=== PATIENT | male | born 1935 | race Caucasian/White ===

== ENCOUNTER 2017-04-15 05:36 | Inpatient (IN) | payer OTHER ==
[~2017-04-15] VITALS: Ht 167.6 cm; Wt 153.5 kg
[2017-04-15] VITALS (9 sets, daily range): BP systolic 101–184; BP diastolic 46–68; PULSE 52–78; RESP 12–16; TEMP 97.7–98.2; O2SAT 92–97
[~2017-04-15 05:36] MED LIST: AMLO5TAB22 PO; ATOR80TA PO; CARD8TAB6 PO; CARV6.252 PO; CHOL1CAP6 PO; CLIN1CAP6 PO; DOFE250 PO; FISHCAP PO; FURO10S PO; IMDU30TA PO; IRON28TA PO; LISI-363 PO; MULT-65 PO; PERC5TAB12 PO; POTA99TA12 PO; RIVA20 PO; ST JTAB PO
[2017-04-15] MEDS ORDERED: IOHEXOL 350 MG/ML 50 ML BTL (for Cath Lab) OTHER ONE (05:37)
[2017-04-15] MEDS ORDERED: NS 1000P @30 MLS/HR (KVO) IV SCH ×2 (06:00→06:15)
[2017-04-15] MEDS ORDERED: ASPIRIN 325 MG TAB PO SCH (06:15)
[2017-04-15 06:49] LABS: HEMATOCRIT 31.3 % (39.0-51.0); HEMOGLOBIN 10.5 GM/DL (13.0-17.0); RED BLOOD COUNT 3.27 MIL/MM3 (4.50-5.90); WHITE BLOOD COUNT 6.4 TH/MM3 (4.0-11.0)
[2017-04-15 06:50] LABS: AUTOMATED NEUTROPHIL # 3.5 TH/MM3 (1.8-7.7); BASOPHIL # 0.1 TH/MM3 (0-0.2); BASOPHIL % 0.8 % (0.0-2.0); EOSINOPHIL # 0.4 TH/MM3 (0-0.4); EOSINOPHIL % 5.7 % (0.0-4.0); LYMPH % 27.3 % (9.0-44.0); LYMPHOCYTE # 1.8 TH/MM3 (1.0-4.8); MEAN CORPUSCULAR HEMOGLOBIN 32.3 PG (27.0-34.0); MEAN CORPUSCULAR HGB CONC 33.7 % (32.0-36.0); MONOCYTE # 0.7 TH/MM3 (0-0.9); NEUT % 55.2 % (16.0-70.0); PLATELET COUNT 160 TH/MM3 (150-450); RED CELL DISTRIBUTION WIDTH 13.4 % (11.6-17.2)
[2017-04-15] MEDS ORDERED: KLOR25TA2 PO (06:58)
[2017-04-15] MEDS ORDERED: CARV3.12 PO (06:58)
[2017-04-15] MEDS ORDERED: DOXA1TAB43 PO (06:58)
[2017-04-15] MEDS ORDERED: ATOR80TA45 PO (06:58)
[2017-04-15] MEDS ORDERED: ASPI81TA23 PO (06:58)
[2017-04-15] MEDS ORDERED: LISI40TA PO (06:58)
[2017-04-15] MEDS ORDERED: OMEGCAP PO (06:58)
[2017-04-15] MEDS ORDERED: ISOS10TA3 PO (06:58)
[2017-04-15] MEDS ORDERED: VITA2000 PO (06:58)
[2017-04-15] MEDS ORDERED: DOFE250 PO (06:58)
[2017-04-15] MEDS ORDERED: MULT-65 PO (06:58)
[2017-04-15] MEDS ORDERED: IRON1CAP4 PO (06:58)
[2017-04-15] MEDS ORDERED: FLUO.05%ST TOPICAL (06:58)
[2017-04-15] MEDS ORDERED: TYLE325T PO (06:58)
[2017-04-15] MEDS ORDERED: FURO40TA PO (06:58)
[2017-04-15] MEDS ORDERED: AMLO2.5T PO (06:58)
[2017-04-15] MEDS ORDERED: XARE20TA PO (06:58)
[2017-04-15] MEDS ORDERED: MAGN100T2 PO (06:58)
[2017-04-15] MEDS ORDERED: SPIR25TA PO (06:58)
[2017-04-15] MEDS ORDERED: VITA500T83 PO (06:58)
[2017-04-15 07:02] LABS: INTERNATIONAL NORMALIZED RATIO 1.1 RATIO; PROTHROMBIN TIME - PATIENT 10.7 SEC (9.8-11.6)
[2017-04-15 07:07] LABS: BICARBONATE 24.6 MEQ/L (21.0-32.0); CREATININE 1.46 MG/DL (0.60-1.30)
[2017-04-15] MEDS ORDERED: MIDAZOLAM HCL 2 MG/2 ML VIAL ONE ×4 (07:32→18:24)
[2017-04-15] MEDS ORDERED: HEPARIN-NS/PF FLUSH BAG 2,000 ML IV FLUSH ONE (07:32)
[2017-04-15] MEDS ORDERED: VERAPAMIL HCL 5 MG/2 ML VIAL ONE (07:32)
[2017-04-15] MEDS ORDERED: NITROGLYCERIN INJ 5 ML ONE (07:33)
[2017-04-15] MEDS ORDERED: HEPARIN SODIUM - IV 10,000 UNITS/10 ML VIAL ONE ×2 (07:33→11:24)
[2017-04-15] MEDS ORDERED: SODIUM CHLOR 0.9% 1000 ML INJ 1,000 ML IV SCH (08:22)
--- NOTE | 2017-04-15 08:26 | CATHPROC ---
[facility] HIS Report Study Information Study Number Admission Scheduled Start Study Start [id number] Apr 15 2017 5:36AM 04/15/2017 Apr 15 2017 6:54AM [facility] Cardiac Catheterization Admit Source Facility Department Other [facility] - [employer] Combination Teacher Physician and Clinical Staff Initial Paul Martínez Voice Engineer Christina Ambrose,CARLOS ALBERTO Recorder Vilma Kent,RT(R) Scrub Katie Marinelli,RT(R) Procedures Performed Procedure Location (Site) Vessel Name Angiogram LV LV Ventricle Coronary Angiograms LCA Left Coronary Coronary Angiograms RCA Right Coronary L Heart Cath Equipment Time 3Rd Grade Reading Teacher Description Size Mfg Part Number Used/Scraped TRANSDUCER, TRUWAVE [id number] 07:51 VILLALOBOS LANCASTER * Used W/STOCKCOCK *[id number] [id number] *[id number] [id number] *[id number] [id number] *[id number] 07:51 MALLINCKRODT SYRINGE, ANGIOMAT 150ML 150ML *[id number] Used 2SUB [id number] 07:51 A.P Avanashiappa Silk PACK, CCL CUSTOM * Used *[id number] 07:51 A.P Avanashiappa Silk SUPPORT, ARTERIAL ADULT 55010 *[id number] Used [id number] 07:51 WordSentry PACER PEN, SKIN DUAL W/ RULER * Used *[id number] BAND, RADIAL COMPRESSION TR [id number] 08:11 MEPS Real-Time MEDICAL 29CM Used LARGE 29 *[id number] 07:51 ReInnervate WIRE, EXCHANGE 260CM 3MMJ 260CM Used *[id number] 07:51 NAMIC MANIFOLD, 4 PORT * Used *[id number] 07:51 NYCOMED OMNIPAQUE, 350 MG, 100ML 100ML [id number] Used 08:09 NYCOMED OMNIPAQUE, 350 MG, 50ML 50ML [id number] Used [id number] 07:51 Coupz BLANKET,WARM AIR CCL * Used *[id number] 07:51 Coupz JELCO NEEDLE 4056 *[id number] Used SHEATH, FR6 TRANSRADIAL [id number] 07:51 TERSpiced Bits MEDICAL FR 6 Used SLENDER 10CM *[id number] Equipment Model, Serial, Lot Number and Expiration Data Description Model Number Serial Number Lot Number Expiration Date BAND, RADIAL COMPRESSION TR [id number] 12-11-2019 LARGE 29 History: Current Medications Medication Dosage/Unit Route Frequency Last Date/Time Taken Statins (any) Beta Bam ASA XARELTO History: Allergies Allergy Reaction crab DIARRHEA AND RASH History: Risk Factors Family History of Hypertension Dyslipidemia Previous SC Previous Heart Failure Premature CAD Yes Yes No Yes No Prior Valve Prior PCI Prior CABG Surgery No Yes No Cerebrovascular Peripheral Artery Chronic Lung On Dialysis Diabetes Disease Disease Disease No No No No No History: Symptoms/Diagnosis Selection Items Chest pain History: Stress Tests Stress or Imaging Studies Performed Yes Standard Exercise Stress Test No Stress Echo No Stress Test SPECT Stress Test SPECT Result Stress Test SPECT Ischemia Risk/Extent Yes Positive High Stress Test CMR No Cardiac CTA Coronary Calcium Score No No History: Other Current Smoker Packs a Day Years Used Pack Years No 1 20 20 Labs Hgb (g/dl) Hct (%) WBC (l/cumm) Platelets (thousands) 11.60-17.00 35.00-51.00 4.00-11.00 150.00-450.00 10.5 31.3 6.4 160 Glucose (mg/dl) BUN (mg/dl) Creatinine (mg/dl) BUN:Creatinine (1:x) 74.00-106.00 7.00-18.00 0.50-1.30 10.00-20.00 111 50 1.4 35.7 Na (meq/l) K (meq/l) 136.00-145.00 3.50-5.10 141 5.3 INR (PTT:PT) 0.90-1.10 1.1 Medication Medication Total Dose (Bolus/Oral) Medication Total Dosage/Unit 1% XYLOCAINE 1 mL FENTANYL 50 mcg RADIAL COCKTAIL 1 units VERSED 3 mg Medications (Bolus/Oral) Medication Time Given Dosage/Unit Administered By Reason VERSED 04/15/2017 7:46:11 AM 1 mg Christina Ambrose 1 mg VERSED given in lab by Christina Ambrose, RN in Left Antecubital via Peripheral IV. VERSED 04/15/2017 7:48:25 AM 1 mg Christina Ambrose 1 mg VERSED given in lab by Christina Ambrose, RN in Left Antecubital via Peripheral IV. 1% XYLOCAINE 04/15/2017 7:49:06 AM 1 mL Paul Yoder 1 mL 1% XYLOCAINE given in lab by Paul Yoder in Right Radial via Subcutaneous. VERSED 04/15/2017 7:50:43 AM 1 mg Christina Ambrose 1 mg VERSED given in lab by Christina Ambrose, RN in Left Antecubital via Peripheral IV. Ntg 200mcg Verapamil 2.5mg Heparin RADIAL COCKTAIL 04/15/2017 7:51:57 AM 1 units Paul Yoder 2000U 1 units RADIAL COCKTAIL given in lab by Paul Yoder in Right Radial via Radial. Reason: Ntg 200mcg Verapamil 2.5mg Heparin 2500U. FENTANYL 04/15/2017 8:03:40 AM 50 mcg Christina Ambrose 50 mcg FENTANYL given in lab by Christina Ambrose, RN in Left Antecubital via Peripheral IV. Ordered by Paul Yoder. Medication (Drip) Medication Time Given Dosage/Unit Concentration/Unit Diluent (ml) Solution IV Solutions 04/15/2017 7:28:21 AM 0 mL (IV) 500 NaCl .9 IV Solutions given in lab by Christina Ambrose, CARLOS ALBERTO in Left Antecubital via Peripheral IV. Pump/Drip Kunal w = 30 ml/hr using NaCl .9. Initial Case Assessment Cardiovascular HR Rhythm NIBP Chest Pain 54 reg 184/72 0 Edema Present Skin color Skin None Normal Warm Dry Circulatory - Right Pulses Dorsalis Pedis Femoral Radial 1 1 1 Scale (0,1,2,3,4,d) Scale (0,1,2,3,4,d) Neurological State Oriented to time-place- Alert Moves all extremities person Respiration - General Respiration Rate SpO2 (%) (B/min) 17 100 Chronological Log Time Study Chronological Log 7:23:54 Patient arrived via Bed. 7:28:00 Patient Name, D.O.B, / Armband Verified By R.N. 7:28:00 Consent signed by the physician and the patient and verified by the [employer] Combination [employer] staff. 7:28:01 Verbal Stimulation=2 Physical Stimulation=2 Airway=2 Respiration=2 TOTAL=8. (0=absent, 1=li mited, 2=present) 7:28:01 Pre-op and post- op instructions given; patient acknowledges understanding of instructions. 7:28:06 Presedation assessment performed by [employer] Combination [employer] RN. 7:28:07 Allens test performed on the right radial and ulnar artery. 7:28:08 Patient has been NPO for More than 6Hrs. 7:28:09 Skin Breakdown none per pt 7:28:09 Patient Warmer Placed on the Table. 7:28:11 Linda Prominences Protected 7:28:16 A # 20 IV was noted in the Antecubital (left). Grade = 0 IV Solutions given in lab by Christina Ambrose, RN in Left Antecubital via Peripheral IV. Pump/Dr ip Flow = 30 ml/hr using 7:28:21 NaCl .9. 7:28:22 History and physical on the chart or being dictated. Assessment: Initial Case, HR=54 BPM, Rhythm=reg, EJPX=322/72 mmhg, Chest Pain=0, Edema=None, Co mary=Normal, Skin = Warm, Dry 7:28:23 Right Pulses: Jacky Ped=1, Femoral=1, Radial=1 Neurological: State=Alert, Ox3, TURCIOS Respiration: Resp=17 B/min, SdL0=593 % Vitals capture started with the following parameters, Patient=Adult, Interval=5 min, Initial Pr dzekrz=968 mmHg, 7:32:34 Deflation Rate=5 mmHg, Cuff placed on Left Arm 7:34:06 HR=54 bpm, PMES=264/72 mmhg, PqM9=069.0 %, Resp=16 B/min, Pain=0, Rylee=10, Banerjee=2 7:35:13 Reference ECG taken 7:38:11 Right Radial and right groin prepped with 2% chlorhexidine, and draped after a 3 min. waitin g time. 7:38:13 HR=62 bpm, QQTZ=561/76 mmhg, OeZ7=424.0 %, Resp=23 B/min, Pain=0, Rylee=10, Banerjee=2 7:41:35 Pressure channel 1 zeroed. 7:43:57 HR=54 bpm, MUPE=603/78 mmhg, UjF5=674.0 %, Resp=12 B/min, Pain=0, Rylee=10, Banerjee=2 7:46:11 1 mg VERSED given in lab by Christina Ambrose, RN in Left Antecubital via Peripheral IV. Time Out. Correct patient, correct procedure, correct physician, power injector not loaded with contrast with surgical 7:47:01 team present. Time Out Concurred by MD and individual staff in procedure. 7:47:10 Case Start 7:48:18 HR=55 bpm, VFOF=518/82 mmhg, BwV3=171.0 %, Resp=20 B/min, Pain=0, Rylee=10, Banerjee=2 7:48:25 1 mg VERSED given in lab by Christina Ambrose, CARLOS ALBERTO in Left Antecubital via Peripheral IV. 7:49:06 1 mL 1% XYLOCAINE given in lab by aPul Yoder in Right Radial via Subcutaneous. 7:50:30 Access site was right Radial Artery. 7:50:43 1 mg VERSED given in lab by Christina Ambrose, CARLOS ALBERTO in Left Antecubital via Peripheral IV. A SHEATH, FR6 TRANSRADIAL SLENDER 10CM FR 6 was advanced into the Radial (right) using the Esha jama 7:50:45 technique. 1 units RADIAL COCKTAIL given in lab by Paul Yoder in Right Radial via Radial. Reason: Ntg 20 0mcg Verapamil 7:51:57 2.5mg Heparin 2500U. A JL 3.5 INFINITI CATHETER FR 5 was advanced over a wire. OMNIPAQUE, 350 MG, 100ML 100ML was use d for 7:52:42 injections. 7:53:25 HR=60 bpm, SXOV=937/58 mmhg, DhU6=511.0 %, Resp=23 B/min, Pain=0, Rylee=10, Banerjee=2 Recorded Pressure: Ao, HR=66, Condition=Condition 1 7:55:26 (Aorta) Ao 101/49/69 7:58:10 The LCA was injected and visualized at various angles. OMNIPAQUE, 350 MG, 100ML 100ML used. 7:58:16 HR=63 bpm, PEWB=084/58 mmhg, SfN0=087.0 %, Resp=25 B/min After removing the current catheter a JR 5.0 INFINITI CATHETER FR 5 was advanced over a WIRE, EX CHANGE 260CM 7:59:53 3MMJ 260CM. 8:02:47 The RCA was injected and visualized at various angles. OMNIPAQUE, 350 MG, 100ML 100ML used. 8:03:40 50 mcg FENTANYL given in lab by Christina Ambrose, CARLOS ALBERTO in Left Antecubital via Peripheral IV. O rdered by Paul Yoder. 8:04:00 HR=59 bpm, KNSE=547/58 mmhg, SpO2=98.0 %, Resp=26 B/min After removing the current catheter a PIGTAIL ANG. INFINITI CATHETER FR 5 was advanced over a WI RE, EXCHANGE 8:06:54 260CM 3MMJ 260CM. 8:09:11 HR=52 bpm, QZVB=107/63 mmhg, SpO2=97.0 %, Resp=18 B/min 8:09:21 The LV was injected at 8 cc/sec for a total of 24. OMNIPAQUE, 350 MG, 50ML 50ML used. Recorded Pressure: LV, HR=54, Condition=Condition 1 8:09:35 (Left Ventricle) LV 154/20/28 Recorded Pressure: LV, Ao, HR=54, Condition=Condition 1 8:09:57 (Left Ventricle) LV 159/14/25, (Aorta) Ao 152/48/88 8:10:27 Catheter was removed 8:11:00 Case End 8:13:23 HR=56 bpm, IVID=629/68 mmhg, SpO2=98.0 %, Resp=17 B/min 8:15:03 Vitals capture stopped. Radial Compression Device Used. 13 mLs of air placed in BAND, RADIAL COMPRESSION TR LARGE 29 29C M. Affected 8:15:43 hand 96 % O2 saturation. 8:16:09 No case complications noted. 8:16:11 Cine recording checked. 8:16:12 Bedside Report will be given. 8:16:17 Holding Area notified. 8:16:26 A Left Heart Cath was performed. 8:20:26 Patient moved to [facility] End Study - Contrast Media Used In Study Contrast Total Opened (mL) Total Used (mL) Total Wasted (mL) Omnipaque 40 40 0 End Study - Maximum Contrast Load Max Contrast Load (mL) 564.3 End Study - Radiation Exposure Fluoro Time (minutes) 5.8 End Study - Patient Disposition Complications Transferred To Interventional Outcome No Critical Care Bed No attempt made
[2017-04-15] MEDS ORDERED: SODIUM CHLORIDE 0.9% FLUSH 10 ML FLUSH IV FLUSH PRN ×3 (08:30→17:00)
[2017-04-15] MEDS ORDERED: ONDANSETRON HCL 4 MG/2 ML VIAL IVP PRN (08:30)
[2017-04-15] MEDS ORDERED: MISC INFORMATION XX ONE (08:30)
[2017-04-15] MEDS ORDERED: CEFAZOLIN INJ 500 MG in SODIUM CHLORIDE 0.9% IRR BTL 500 ML IRRIGATION SCH (09:00)
[2017-04-15] MEDS ORDERED: DEXTROSE 50% IN WATER 50 ML VIAL(D50) IV PUSH PRN ×2 (09:00→17:00)
[2017-04-15] MEDS ORDERED: METOPROLOL TARTRATE 25 MG TAB PO SCH (09:00)
[2017-04-15] MEDS ORDERED: PAPAVERINE INJ 60 MG, NITROGLYCERIN INJ 100 MCG, DILTIAZEM INJ 100 MG in SODIUM CHLORID... IRRIGATION SCH (09:00)
[2017-04-15] MEDS ORDERED: ceFAZolin 2 GM PREMIX 50 ML IV SCH (09:00)
[2017-04-15] MEDS ORDERED: INSULIN REGULAR (IV INFUSION) 100 UNITS in SODIUM CHLORIDE 0.9% INJ 99 ML IV PRN (09:00)
[2017-04-15] MEDS ORDERED: SODIUM CHLORIDE 0.9% FLUSH 10 ML FLUSH IV FLUSH SCH ×2 (09:00)
[2017-04-15] MEDS ORDERED: CHLORHEXIDINE GLUCONATE 4% SOLN 120 ML BTL TOPICAL SCH (09:00)
[2017-04-15] MEDS ORDERED: BACITRACIN OINT 0.9 GM PKT TOP ONE (09:00)
--- NOTE | 2017-04-15 09:09 | MA ---
cc: Paul Yoder MD, Prady M MD 04/15/2017 PROCEDURE PERFORMED: Left heart catheterization, left ventriculography, coronary angiography, right renal arterial approach. DESCRIPTION OF PROCEDURE: The patient was brought to the cardiac tailings dam laborer in a fasting state. The right wrist was prepped and draped in sterile fashion. He received a total of 3 mg of Versed for IV sedation, using 1% lidocaine for local anesthesia. A sheath was inserted in the right renal artery requiring only a single stick with no difficulty. Standard cocktail was administered. Coronary angiography was then completed using a left 3.5 Kwesi for the left coronary artery and a JR 5 for the right coronary artery. An pigtail catheter was then used for left heart catheterization, left ventriculography and a pullback. The sheath was removed at the end of the case with a band placed. There were no complications. The patient did not have any chest pain during the procedure. FINDINGS: 1. Hemodynamics. Left ventricular pressure is 159/14 with an end diastolic pressure of 25. Aortic pressure is 15/48 with a mean of 88. There was no gradient during pullback from the left ventricle to the aorta. 2. Left ventriculography. Left ventriculography shows a symmetrically aga left ventricle with an estimated ejection fraction of 60% and no mitral regurgitation. 3. Coronary angiography. The left main coronary artery has a tight distal stenosis with Inman classification of 111. The left main distal stenosis is 90%. The ostial LAD is about 80% and the ostial circumflex is about 80%. The LAD has diffuse disease with probably at least 70% stenosis past the branch, but distally appears graftable. Circumflex artery has an obtuse marginal branch that comes out of the groove that looks graftable. It looks as if there are old stents in the proximal circumflex and proximal LAD, which are patent. The right coronary artery has a large hyperdominant vessel with no significant stenosis. There may be about 20% stenosis in the posterolateral branch. CONCLUSIONS: 1. Elevated left ventricular end diastolic pressure. 2. Critical left main LAD and circumflex disease. 3. Preserved LV function. RECOMMENDATIONS: Coronary artery bypass grafting to the LAD and circumflex vessels. MD MAIN Puentes/LORIE , 08:21 AM , 09:05 AM
--- NOTE | 2017-04-15 10:29 | PD.CAR.PN ---
CVT Progress Note Subjective/Hospital Course: pt seen and evaluated, full consult to follow Left Main disease for urgent CABG x 2 today sts discussed with pt RISK SCORES About the STS Risk Calculator Procedure: CAB Only Risk of Mortality: 6.739% Morbidity or Mortality: 36.111% Long Length of Stay: 21.387% Short Length of Stay: 14.305% Permanent Stroke: 1.296% Prolonged Ventilation: 26.382% DSW Infection: 1.402% Renal Failure: 19.117% Reoperation: 10.757% Objective: Vital Signs Date Time Temp Pulse Resp B/P (MAP) Pulse Ox O2 Delivery O2 Flow Rate FiO2 04/15/17 08:29 97 Room Air 04/15/17 06:27 97.8 52 16 184/68 (106 96 Labs: Laboratory Tests Test 04/15/17 06:22 White Blood Count 6.4 TH/MM3 (4.0-11.0) Red Blood Count 3.27 MIL/MM3 (4.50-5.90) Hemoglobin 10.5 GM/DL (13.0-17.0) Hematocrit 31.3 % (39.0-51.0) Mean Corpuscular Volume 96.0 FL (80.0-100.0) Mean Corpuscular Hemoglobin 32.3 PG (27.0-34.0) Mean Corpuscular Hemoglobin Concent 33.7 % (32.0-36.0) Red Cell Distribution Width 13.4 % (11.6-17.2) Platelet Count 160 TH/MM3 (150-450) Mean Platelet Volume 8.0 FL (7.0-11.0) Neutrophils (%) (Auto) 55.2 % (16.0-70.0) Lymphocytes (%) (Auto) 27.3 % (9.0-44.0) Monocytes (%) (Auto) 11.0 % (0.0-8.0) Eosinophils (%) (Auto) 5.7 % (0.0-4.0) Basophils (%) (Auto) 0.8 % (0.0-2.0) Neutrophils # (Auto) 3.5 TH/MM3 (1.8-7.7) Lymphocytes # (Auto) 1.8 TH/MM3 (1.0-4.8) Monocytes # (Auto) 0.7 TH/MM3 (0-0.9) Eosinophils # (Auto) 0.4 TH/MM3 (0-0.4) Basophils # (Auto) 0.1 TH/MM3 (0-0.2) CBC Comment DIFF FINAL Differential Comment Prothrombin Time 10.7 SEC (9.8-11.6) Prothromb Time International Ratio 1.1 RATIO Activated Partial Thromboplast Time 25.3 SEC (24.3-30.1) Blood Urea Nitrogen 50 MG/DL (7-18) Creatinine 1.46 MG/DL (0.60-1.30) Random Glucose 111 MG/DL (74-106) Calcium Level 8.0 MG/DL (8.5-10.1) Sodium Level 141 MEQ/L (136-145) Potassium Level 5.3 MEQ/L (3.5-5.1) Chloride Level 109 MEQ/L (98-107) Carbon Dioxide Level 24.6 MEQ/L (21.0-32.0) Anion Gap 7 MEQ/L (5-15) Estimat Glomerular Filtration Rate 47 ML/MIN (>89) Result Diagram: 04/15/1722 04/15/17621 Avelina Duran Apr 15, 2017 10:29
[2017-04-15] MEDS ORDERED: hydrALAZINE HCL 20 MG/ML VIAL IV PUSH ONE ×2 (10:45→13:15)
--- NOTE | 2017-04-15 11:01 | RADRPT ---
EXAM DATE/TIME: 04/15/2017 10:00 [facility] COMPARISON: No previous studies available for comparison. INDICATIONS : Pre op cardiac surgery. MEDICAL HISTORY : Hypertension. Congestive heart failure. Eye problems. Hyperlipidemia. Sleep apnea. A Fib. SURGICAL HISTORY : Cardiac ablation x2. Coronary stents. Cardiac cath. ENCOUNTER: Initial ACUITY: 1 day PAIN SCORE: 0/10 LOCATION: Bilateral legs. GREATER SAPHENOUS VEIN THIGH: PROXIMAL: Right 5 mm Left 5 mm MID: Right 6 mm Left 5 mm DISTAL: Right 4 mm Left 5 mm CALF: PROXIMAL: Right 3 mm Left 3 mm MID: Right 2 mm Left 3 mm DISTAL: Right 2 mm Left 2 mm FINDINGS: The venous system of the lower extremities are patent by color Doppler imaging. Measurements of the leg veins (in mm) are listed above. CONCLUSION: Venous mapping as detailed above. Jules Carpio Jr., MD on April 15, 2017 at 10:57 Board Certified Radiologist. This report was verified electronically.
--- NOTE | 2017-04-15 11:04 | RADRPT ---
EXAM DATE/TIME: 04/15/2017 10:23 [facility] COMPARISON: No previous studies available for comparison. INDICATIONS : Pre op cardiac surgery. MEDICAL HISTORY : Congestive heart failure. Hypertension. Eye problems. Hyperlipidemia. Sleep apnea. A Fib. SURGICAL HISTORY : Cardiac ablation x2. Coronary stents. Cardiac cath. ENCOUNTER: Initial ACUITY: 1 day PAIN SCORE: 0/10 LOCATION: Bilateral neck PEAK SYSTOLIC VELOCITIES (cm/sec): ICA/CCA RATIO: Right: 1.6 Left: 0.8 ICA: Right: 77 Left: 112 CCA: Right: 100 Left: 70 ECA: Right: 110 Left: 182 VERTEBRAL: Right: 45 antegrade Left: 47 antegrade Elevated flow velocities and ICA/CCA ratios have been found to correlate with increased degrees of vessel stenosis, calculated as percentage of diameter relative to a normal segment of distal ICA/CCA FINDINGS: RIGHT CAROTID: No significant stenosis is visualized. The waveforms are within normal limits. LEFT CAROTID: No significant stenosis is visualized. The waveforms are within normal limits. VERTEBRAL ARTERIES: Antegrade flow is seen in both vertebral arteries. MISCELLANEOUS: None. CONCLUSION: 1. Mild scattered plaque. No hemodynamically significant stenosis involving either carotid artery. 2. Antegrade flow involving both vertebral arteries. Jules Carpio Jr., MD on April 15, 2017 at 11:00 Board Certified Radiologist. This report was verified electronically.
--- NOTE | 2017-04-15 11:06 | RADRPT ---
EXAM DATE/TIME: 04/15/2017 09:50 [facility] COMPARISON: No previous studies available for comparison. INDICATIONS : Pre op cardiac surgery. MEDICAL HISTORY : Congestive heart failure. Hypertension. Eye problems. Hyperlipidemia. Sleep apnea. A Fib. SURGICAL HISTORY : Cardiac ablation x2. Coronary stents. Cardiac cath. ENCOUNTER: Initial ACUITY: 1 day PAIN SCORE: 0/10 LOCATION: Bilateral legs. TECHNIQUE: Venous ultrasound of the left and right leg was performed from the inguinal ligament to the proximal calf. Real-time, color Doppler and spectral tracing, compression and augmentation techniques were us ed. FINDINGS: RIGHT LEG: There is normal compressibility of the deep venous system from the inguinal region to the proximal ca lf. No echogenic clot is seen in the lumen of the common femoral, femoral, popliteal, and posterior tibial veins. There is a normal response of the venous system to proximal and distal augmentation an d respiration. LEFT LEG: There is normal compressibility of the deep venous system from the inguinal region to the proximal ca lf. No echogenic clot is seen in the lumen of the common femoral, femoral, popliteal, and posterior tibial veins. There is a normal response of the venous system to proximal and distal augmentation an d respiration. CONCLUSION: 1. No sonographic evidence for lower extremity DVT. Christopher Dunn MD on April 15, 2017 at 10:50 Board Certified Radiologist. This report was verified electronically.
[2017-04-15] MEDS ORDERED: ceFAZolin INJ 1,000 MG VIAL ONE (11:24)
[2017-04-15] MEDS ORDERED: methylPREDNISolone SOD SUCC 125 MG/2 ML VIAL ONE ×2 (11:25→11:34)
[2017-04-15] MEDS ORDERED: VANCOMYCIN HCL 1000 MG VIAL ONE ×2 (11:26→11:34)
[2017-04-15] MEDS ORDERED: HEPARIN SODIUM - SQ 10,000 UNITS/ML VIAL ONE (11:34)
[2017-04-15] MEDS ORDERED: ceFAZolin 2 GM PREMIX 0 ML ONE (11:35)
--- NOTE | 2017-04-15 11:35 | RADRPT ---
EXAM DATE/TIME: 04/15/2017 11:01 [facility] COMPARISON: No previous studies available for comparison. INDICATIONS : Preop CABG. MEDICAL HISTORY : Congestive heart failure. Hypertension ye problems. Hyperlipidemia. Sleep apnea. A Fib. SURGICAL HISTORY : Cardiac ablation x2. Coronary stents. Cardiac cath. ENCOUNTER: Initial ACUITY: 1 day PAIN SCORE: 0/10 LOCATION: Bilateral chest FINDINGS: A single portable frontal view the chest shows moderate cardiomegaly. No significant pulmonary vascul ar engorgement. Lungs are clear. No effusions. 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 CONCLUSION: Cardiomegaly. Clear lungs. Jules Carpio Jr., MD on April 15, 2017 at 11:33 Board Certified Radiologist. This report was verified electronically.
[2017-04-15] MEDS ORDERED: AMINOCAPROIC ACID INJ 250 MG/ML 20 ML VIAL IV ONE (12:00)
[2017-04-15] MEDS ORDERED: NORMOSOL R INJ 1,000 ML IV ONE (12:00)
[2017-04-15] MEDS ORDERED: DEXMEDETOMIDINE HCL 200 MCG/2 ML VIAL IV ONE (12:00)
[2017-04-15] MEDS ORDERED: ePHEDrine/NS 25 MG/5 ML SYRINGE IV ONE (12:00)
[2017-04-15] MEDS ORDERED: NS 100 ML (PAB BAG) 200 ML IV ONE (12:00)
[2017-04-15] MEDS ORDERED: SODIUM CHLOR 0.9% 250 ML INJ 250 ML IV ONE ×2 (12:00→13:15)
[2017-04-15] MEDS ORDERED: DOPamine 800 MG/500 ML INJ 500 ML IV ONE (12:00)
[2017-04-15] MEDS ORDERED: PHENYLEPHRINE HCL 10 MG/ML VIAL IV ONE (12:00)
[2017-04-15] MEDS ORDERED: HEPARIN SODIUM - SQ 10,000 UNITS/ML VIAL OTHER ONE ×2 (12:00→13:15)
[2017-04-15] MEDS ORDERED: VECURONIUM BROMIDE 10 MG VIAL IV ONE (12:00)
[2017-04-15] MEDS ORDERED: NITROGLYCERIN 50 MG/DEXTROSE 5% SOLN 250 ML BTL IV ONE (12:00)
[2017-04-15] MEDS ORDERED: PHENYLEPH/NS 1000 MCG/10 ML SYR IV ONE (12:00)
[2017-04-15] MEDS ORDERED: LACTATED RINGER'S 1000 ML INJ 2,000 ML IV ONE (12:00)
[2017-04-15] MEDS ORDERED: MAGNESIUM SULFATE 1 GM/2 ML VIAL IV ONE (12:00)
[2017-04-15] MEDS ORDERED: GLYCOPYRROLATE 0.2 MG/ML VIAL IV ONE (12:00)
[2017-04-15] MEDS ORDERED: PROTAMINE SULFATE 250 MG/25 ML VIAL IV ONE (12:00)
[2017-04-15] MEDS ORDERED: SODIUM CHLORID 0.9% 500 ML INJ 500 ML IV ONE (12:00)
--- NOTE | 2017-04-15 12:07 | MB ---
cc: Taylor Gordon MD DATE OF CONSULT: 04/15/2017 DATE OF : 1935 PRIMARY CARE PHYSICIAN: Leonardo Davis MD TELEPHONE RECORDER: Dr. Paul Yoder. HISTORY OF PRESENT ILLNESS: Patient with history of chest tightness off and on for the last couple of months with exertion, history of coronary artery disease with prior stent, also prior AR, presented for further evaluation and outpatient cardiac cath by Dr. Yoder. The patient was found to have an ejection fraction of 60% left main disease, distal 90% proximally, the ostial 80%, mid-distal LAD 70, the circ was 80%. We were consulted to evaluate for coronary artery bypass grafting to the LAD and the OM. PAST MEDICAL HISTORY: Significant for - 1. Coronary artery disease. 2. Paroxysmal atrial fibrillation. 3. Hyperlipidemia. 4. Hypertension. 5. Intraventricular conduction defect. 6. Trace mitral regurgitation. 7. Trace aortic insufficiency. 8. Trace tricuspid insufficiency. 9. Morbid obesity with BMI of 56. 10. Benign prostatic hypertrophy. 11. Chronic anemia. 12. Sleep apnea. 13. History of sinus bradycardia. PAST SURGICAL HISTORY: 1. Cardiac catheterization in 2004 at the [facility]. 2. Right knee replacement. 3. He has had ablation for the atrial flutter. 4. Appendectomy. ALLERGIES: NO KNOWN ALLERGIES. HOME MEDICATIONS: 1. Amlodipine 2.5 p.o. daily. 2. Aspirin 81 daily. 3. Atorvastatin 80. 4. Coreg 3.125 daily. 5. Doxazosin 8 mg. 6. Lasix 40. 7. Iron pills. 8. Imdur. 9. Lisinopril 40. 10. Magnesium 200. 11. Multivitamin. 12. Potassium. 13. Spironolactone. 14. Tikosyn. 15. Xarelto last dose was on Friday. FAMILY HISTORY: Father from hypertension, diabetes at 84. Mother at 54 from stomach cancer. SOCIAL HISTORY: The patient is , five children. 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 Smoked for 25 years, quit 30 years ago. Rare alcohol. He does use a walker and a cane for ambulation. REVIEW OF SYSTEMS: GENERAL: No night sweats, fever, heat and cold intolerance. SKIN: No rash, itching or hives. HEENT: No blurred vision, hearing loss. RESPIRATORY: Positive for recent shortness of breath, chest pressure, as above in the HPI. GASTROINTESTINAL: No diarrhea or vomiting. GENITOURINARY: No burning, frequency or urgency. 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 ENDOCRINOLOGY: No history of diabetes or hypothyroidism. PHYSICAL EXAMINATION: VITAL SIGNS: Blood pressure 180/60, heart rate of 52, afebrile, room air sat 97. GENERAL: The patient is awake and alert. He does wear glasses. He does wear dentures, upper and lower. HEAD: Normocephalic, atraumatic. Pupils equal and reactive. Oral mucosa pink, moist. NECK: Supple. No JVD. HEART SOUNDS: S1, S2. Irregular rate and rhythm. No audible rub or gallop. LUNGS: Diminished in the bases, otherwise clear to auscultation. ABDOMEN: Obese with a large pannus. EXTREMITIES: Chronic venous stasis with good distal pulses. LABORATORY DATA: Lab work shows hemoglobin 10.5, hematocrit of 31, white cell count of 6.4, platelet count of 160. INR 1.1. Sodium 141, potassium 5.3, BUN of 50 with a creatinine of 1.46. IMPRESSION: This his a 81-year-old male, patient of Dr Harish Yoder who underwent elective cardiac catheterization with 90% left main, 80% ostial LAD, circumflex of 80%. The procedure, alternatives and risks have been discussed with the patient. The patient is agreeable to proceed. PLAN: Urgent coronary artery bypass grafting x 2. The patient will need extensive weight loss program once he has recovered from his surgery. Again, his last dose of Xarelto was on Friday. INR is 1.1. Dictated by: CARMEN Garcia MD MEETA Alonzo/ROSEMARIE , 10:47 AM , 11:15 AM
[2017-04-15] MEDS ORDERED: CARDIOPLEGIC IRR 2,000 ML ONE (12:16)
[2017-04-15] MEDS ORDERED: POTASSIUM CHLORIDE 40 MEQ/20 ML VIAL ONE (12:16)
[2017-04-15] MEDS ORDERED: POTASSIUM CHLORIDE 20 MEQ/10 ML VIAL ONE (12:17)
[2017-04-15] MEDS ORDERED: SODIUM BICARBONATE 8.4% INJ 50 ML ONE (12:18)
[2017-04-15] MEDS ORDERED: ALBUMIN 25% INJ 50 ML IV ONE (12:18)
[2017-04-15] MEDS ORDERED: CALCIUM CHLORIDE 10% SOLN 1 GRAM/10 ML SYR ONE (12:19)
[2017-04-15] MEDS ORDERED: MANNITOL INJ 100 ML ONE (12:19)
[2017-04-15 12:43] LABS: BILIRUBIN, URINE NEG (NEG); BLOOD, URINE NEG (NEG); GLUCOSE,URINE NEG (NEG); KETONE, URINE NEG (NEG); NITRITE,URINE NEG (NEG); PH, URINE 7.5 (5.0-8.5); URINE COLOR LIGHT-YELLOW (YELLW/STRAW); URINE LEUKOCYTE ESTERASE NEG (NEG)
[2017-04-15] MEDS ORDERED: VERAPAMIL HCL 5 MG/2 ML VIAL OTHER ONE (13:15)
[2017-04-15] MEDS ORDERED: NITROGLYCERIN 1000 MCG/5 ML VIAL OTHER ONE (13:15)
[2017-04-15] MEDS ORDERED: MIDAZOLAM HCL 2 MG/2 ML VIAL IV PUSH ONE ×3 (13:15)
[2017-04-15 14:26] LABS: ALBUMIN 3.6 GM/DL (3.4-5.0); ALT (GPT) 20 U/L (12-78); AST (GOT) 18 U/L (15-37); DIRECT BILIRUBIN ADULT 0.1 MG/DL (0.0-0.2)
[2017-04-15 14:28] LABS: ALKALINE PHOSPHATASE 37 U/L (45-117); INDIRECT BILIRUBIN 0.1 MG/DL (0.0-0.8); TOTAL BILIRUBIN ADULT 0.2 MG/DL (0.2-1.0); TOTAL PROTEIN 6.7 GM/DL (6.4-8.2)
[2017-04-15 16:37] LABS: HEMOGLOBIN A1C 5.3 % (4.3-6.0)
[2017-04-15] MEDS ORDERED: CALCIUM CHLORIDE 10% 1 GRAM/10 ML VIAL IV PUSH PRN (17:00)
[2017-04-15] MEDS ORDERED: CALCIUM CHLORIDE INJ 1 GM in SODIUM CHLORIDE 0.9% INJ 100 ML IV PRN (17:00)
[2017-04-15] MEDS ORDERED: ACETAMINOPHEN 325 MG TAB PO PRN (17:00)
[2017-04-15] MEDS ORDERED: RESP: RACEPINEPHRINE 2.25% 0.5 ML NEB NEB PRN (17:00)
[2017-04-15] MEDS ORDERED: MAGNESIUM SULFATE INJ 2 GM in SODIUM CHLORIDE 0.9% INJ 100 ML IV PRN ×4 (17:00)
[2017-04-15] MEDS ORDERED: ACETAMINOPHEN 650 MG SUPP RECTAL PRN (17:00)
[2017-04-15] MEDS ORDERED: hydrALAZINE HCL 20 MG/ML VIAL IV PUSH PRN (17:00)
[2017-04-15] MEDS ORDERED: POTASSIUM CHLORIDE 20 MEQ CONTROLLED RELEASE TAB PO PRN ×2 (17:00)
[2017-04-15] MEDS ORDERED: Post-op Orders (for Pharmacy) OTHER ONE (17:00)
[2017-04-15] MEDS ORDERED: CLEVIDIPINE INJ 50 ML IV PRN (17:00)
[2017-04-15] MEDS ORDERED: METOPROLOL TARTRATE 5 MG/5 ML VIAL IV PUSH PRN (17:00)
[2017-04-15] MEDS ORDERED: POTASSIUM CHLOR 20 MEQ PREMIX 100 ML IV PRN ×3 (17:00)
[2017-04-15] MEDS ORDERED: DEXMEDETOMIDINE INJ 200 MCG in SODIUM CHLORIDE 0.9% INJ 50 ML IV PRN (17:00)
[2017-04-15] MEDS ORDERED: SODIUM BICARBONATE 8.4% SOLN 50 MEQ/50 ML VIAL IV PUSH PRN ×2 (17:00)
--- NOTE | 2017-04-15 17:06 | PD.OP ---
cc: Taylor Gordon MD; Paul Yoder MD Operative Report Date of Surgery: Apr 15, 2017 Preoperative Diagnosis: (1) CAD (coronary artery disease) (2) Unstable angina Left main CAD Postoperative Diagnosis: same Procedure: Emergent CABG x 2 BULLOCK to LAD - good SVG to OM- good EVH (R) Anesthesia: Dr. Gould Surgeon: Taylor oGrdon Physical Therapist(s): ROSE MARIE Dong Operation and Findings: The risks, benefits, complications, treatment options, and expected outcomes were discussed with the patient. The possibilities of reaction to medication, pulmonary aspiration, perforation of viscus, bleeding, recurrent infection, the need for additional procedures, failure to diagnose a condition, and creating a complication requiring transfusion or operation were discussed with the patient. The patient concurred with the proposed plan, giving informed consent. The site of surgery properly noted/marked. The patient was taken to Operating Room, identified as Kris Akers and the procedure verified as CABG, EVH. A Time Out was held and the above information confirmed. Standard monitoring lines and Zurita catheter were placed. General anesthesia was induced. The patient was prepped and draped in a sterile fashion. A median sternotomy was performed and electrocautery was used to obtain hemostasis. The left internal mammary artery was procured as a pedicle from the 7th rib to the 1st rib in the usual manner. Simultaneously right greater saphenous vein was procured from the right leg using a minimally invasive endoscopic technique. The vein was prepared for anastomosis and the leg wound was irrigated and closed in 2 layers. The pericardium was opened and a pericardial sling was created using interrupted 0 silk sutures. The patient was heparinized for cardiopulmonary bypass and the distal mammary pedicle was instrumented for anastomosis. The heart was instrumented for cardiopulmonary bypass in the usual manner. Antegrade blood cardioplegia was employed. The patient was placed on cardiopulmonary bypass. An aortic cross-clamp was applied and the heart was arrested using cold blood cardioplegia. Antegrade cardioplegia was administered after he each anastomosis. After adequate arrest, the 1st circumflex marginal artery was then opened with a Knik blade and found to be a 1.5 millimeter good target. Saphenous vein was approximated to the OM1 artery using a running 7 0 Prolene suture. The graft was measured for length and orientation and was suspended from the pericardium. The distal LAD was opened with a Knik blade and found to be a 1.5 millimeter good target. The left internal mammary artery was approximated to the LAD using a running 7 0 Prolene suture. The pedicle was attached to the epicardium using interrupted 5 0 silk suture. The patient was systemically rewarmed and received a hotshot dose of warm blood cardioplegia. The aorta was vented and the proximal anastomosis to the OM1 graft was accomplished using a running 5 0 Prolene suture after creating an aortotomy was a 5 millimeter punch. The cross-clamp was removed and all proximal and distal anastomoses were examined for hemostasis. The patient was weaned from cardiopulmonary bypass. Protamine was given. There was no adverse reaction. Decannulation was carried out without incident. Wound was checked for hemostasis which was obtained using electrocautery. A 36 Nepalese mediastinal and 32 Nepalese left pleural chest tubes were placed and secured to the skin with 0 silk suture. The sternum was closed with stainless steel wire. The fascia was closed with 1. PDS. The subcutaneous tissue was closed using a running 2-0 Vicryl suture. The skin was closed with 4-0 Monocryl. Sterile dressings were placed. At the end of the operation, all sponge, instruments, and needle counts were correct. The patient was transferred to the CVICU in stable condition. Findings: good distal targets XC: 39 min CPB: 45 min Drains: mediastinal x 1 pleural x 1 Complications: none Disposition: to CVICU in stable condition Taylor Gordon MD Apr 15, 2017 17:06
[2017-04-15] MEDS: INSULIN REGULAR (IV INFUSION) 100 UNITS in SODIUM CHLORIDE 0.9% INJ 99 ML IV PRN (18:00)
[2017-04-15] MEDS ORDERED: DOPamine 800 MG/500 ML INJ 500 ML ONE (18:14)
[2017-04-15] MEDS ORDERED: fentaNYL CITRATE 250 MCG/5 ML AMP ONE (18:23)
--- NOTE | 2017-04-15 18:50 | EKG ---
Date Performed: 04/15/2017 Time Performed: 07:14:10 PTAGE: 81 years EKG: Sinus bradycardia Leftward axis IV conduction defect Abnormal ECG NO PREVIOUS TRACING DOCTOR: Paul Yoder Interpretating Date/Time 04/15/2017 18:44:14
[2017-04-15] MEDS: LACTATED RINGER'S 1000 ML INJ 500 ML IV PRN ×2 (19:00→20:00)
--- NOTE | 2017-04-15 19:02 | RADRPT ---
EXAM DATE/TIME: 04/15/2017 18:17 [facility] COMPARISON: CHEST SINGLE AP, April 15, 2017, 11:01. INDICATIONS : Post op CABG. MEDICAL HISTORY : Congestive heart failure. Hypertension, A-fib. SURGICAL HISTORY : Coronary artery stent. ENCOUNTER: Initial ACUITY: 1 day PAIN SCORE: Non-responsive. LOCATION: Bilateral chest FINDINGS: Postop findings from CABG with ET tube tip 2 cm above the eddy, right internal jugular catheter tip at the cavoatrial junction, left chest drainage tube with the lateral apex, and gastric tube ivelisse es the [id number]. The lungs are symmetrically aerated. No focal areas of consolidation seen. S ternal wire sutures and plates in place. The heart is enlarged, similar to preoperative exam. CONCLUSION: Postoperative changes from CABG. Lines and tubes as above. Jules Walls MD on April 15, 2017 at 18:59 Board Certified Radiologist. This report was verified electronically.
[2017-04-15] MEDS: oxyCODONE/ACETAMINOPHEN 5 MG/325 MG TAB PO PRN (19:25)
[2017-04-15] MEDS: ACETAMINOPHEN 1000 MG/100 ML 100 ML IV SCH ×2 (19:26→23:42)
[2017-04-15] MEDS: METOCLOPRAMIDE HCL 10 MG/2 ML VIAL IV PUSH SCH ×2 (19:26→20:13)
[2017-04-15] MEDS: ALBUMIN 5% INJ 250 ML IV PRN ×2 (19:27→20:12)
[2017-04-15 19:29] LABS: BASOPHIL % 0.3 % (0.0-2.0); EOSINOPHIL # 0.1 TH/MM3 (0-0.4); EOSINOPHIL % 0.4 % (0.0-4.0); HEMATOCRIT 27.9 % (39.0-51.0); HEMOGLOBIN 9.5 GM/DL (13.0-17.0); LYMPHOCYTE # 1.3 TH/MM3 (1.0-4.8); MEAN CELL VOLUME 96.8 FL (80.0-100.0); MEAN CORPUSCULAR HGB CONC 34.1 % (32.0-36.0); MEAN PLATELET VOLUME 8.3 FL (7.0-11.0); MONO % 4.7 % (0.0-8.0); MONOCYTE # 0.6 TH/MM3 (0-0.9); NEUT % 83.6 % (16.0-70.0); PLATELET COUNT 113 TH/MM3 (150-450); RED BLOOD COUNT 2.88 MIL/MM3 (4.50-5.90); RED CELL DISTRIBUTION WIDTH 13.2 % (11.6-17.2)
[2017-04-15 19:47] LABS: BICARBONATE 23.9 MEQ/L (21.0-32.0); CREATININE 1.68 MG/DL (0.60-1.30); MAGNESIUM 2.8 MG/DL (1.5-2.5)
[2017-04-15] MEDS: SODIUM CHLORIDE 0.9% FLUSH 10 ML FLUSH IV FLUSH SCH (20:13)
[2017-04-15] MEDS: RESP: ALBUTEROL 2.5 MG/IPRATROPIUM 0.5 MG NEB (SCH) NEB (20:42)
[2017-04-15] MEDS: ceFAZolin 2 GM PREMIX 50 ML IV SCH (21:11)
[2017-04-15] MEDS: AMIODARONE 200 MG TAB PO SCH (21:11)
[2017-04-15] MEDS: ONDANSETRON HCL 4 MG/2 ML VIAL IV PUSH PRN (23:41)
[2017-04-16] VITALS (12 sets, daily range): BP systolic 129–152; BP diastolic 38–98; PULSE 80–97; RESP 16–20; TEMP 97.7–98.4; O2SAT 85–99
[2017-04-16] MEDS: oxyCODONE/ACETAMINOPHEN 5 MG/325 MG TAB PO PRN ×6 (00:16→22:33)
[2017-04-16] MEDS: RESP: ALBUTEROL 2.5 MG/IPRATROPIUM 0.5 MG NEB (SCH) NEB ×3 (02:57→19:44)
[2017-04-16 04:57] LABS: HEMATOCRIT 30.9 % (39.0-51.0); HEMOGLOBIN 10.5 GM/DL (13.0-17.0); MEAN CELL VOLUME 95.5 FL (80.0-100.0); MEAN CORPUSCULAR HEMOGLOBIN 32.3 PG (27.0-34.0); MEAN CORPUSCULAR HGB CONC 33.8 % (32.0-36.0); MEAN PLATELET VOLUME 8.3 FL (7.0-11.0); PLATELET COUNT 123 TH/MM3 (150-450); RED BLOOD COUNT 3.24 MIL/MM3 (4.50-5.90); RED CELL DISTRIBUTION WIDTH 13.3 % (11.6-17.2); WHITE BLOOD COUNT 13.2 TH/MM3 (4.0-11.0)
--- NOTE | 2017-04-16 05:00 | RADRPT ---
EXAM DATE/TIME: 04/16/2017 04:00 [facility] COMPARISON: CHEST SINGLE AP, April 15, 2017, 18:17. INDICATIONS : Short of breath. MEDICAL HISTORY : Congestive heart failure. Hypertension, A-fib. SURGICAL HISTORY : Coronary artery stent. ENCOUNTER: Subsequent ACUITY: 4 - 6 days PAIN SCORE: 0/10 LOCATION: Bilateral chest FINDINGS: Portable AP view of the chest demonstrates an enlarged cardiac silhouette. Right IJ line tip is at th e cavoatrial junction and a left chest tube is present and no pneumothorax is seen. The endotracheal tube and nasogastric tube have been removed. There is a likely atelectasis at the lung bases. CONCLUSION: Atelectasis at the lung bases. No pneumothorax is visualized in this patient with left chest tube. Jones Nazario MD on April 16, 2017 at 4:58 Board Certified Radiologist. This report was verified electronically.
[2017-04-16] MEDS ORDERED: FUROSEMIDE 40 MG/4 ML VIAL ONE (05:04)
[2017-04-16] MEDS: ACETAMINOPHEN 1000 MG/100 ML 100 ML IV SCH ×2 (05:05→11:58)
[2017-04-16] MEDS: AMIODARONE 200 MG TAB PO SCH ×3 (05:07→21:10)
[2017-04-16] MEDS: ONDANSETRON HCL 4 MG/2 ML VIAL IV PUSH PRN (05:07)
[2017-04-16] MEDS: PANTOPRAZOLE SOD 40 MG DELAYED RELEASE TAB PO SCH (05:07)
[2017-04-16] MEDS: ceFAZolin 2 GM PREMIX 50 ML IV SCH ×3 (05:08→21:11)
[2017-04-16] MEDS ORDERED: FUROSEMIDE 40 MG/4 ML VIAL IV SCH (05:15)
[2017-04-16 05:19] LABS: BICARBONATE 23.1 MEQ/L (21.0-32.0); CALCIUM 8.3 MG/DL (8.5-10.1); CREATININE 1.85 MG/DL (0.60-1.30); MAGNESIUM 2.7 MG/DL (1.5-2.5)
[2017-04-16] MEDS: INSULIN REGULAR (IV INFUSION) 100 UNITS in SODIUM CHLORIDE 0.9% INJ 99 ML IV PRN (05:19)
[2017-04-16] MEDS: RESP: ALBUTEROL 2.5 MG/IPRATROPIUM 0.5 MG NEB (PRN) NEB ×2 (05:57→09:54)
[2017-04-16] MEDS: SODIUM CHLORIDE 0.9% FLUSH 10 ML FLUSH IV FLUSH SCH ×2 (08:48→21:00)
[2017-04-16] MEDS: ASPIRIN 81 MG CHEW TAB PO SCH (08:48)
[2017-04-16] MEDS ORDERED: BUMETANIDE INJ 100 ML IV SCH (09:08)
[2017-04-16] MEDS ORDERED: BISACODYL 10 MG SUPP RECTAL PRN (09:15)
[2017-04-16] MEDS ORDERED: DEXTROSE 50% IN WATER 50 ML VIAL(D50) IV PUSH PRN (09:15)
[2017-04-16] MEDS ORDERED: SOD PHOSPHATE/SOD BIPHOSPHATE (ADULT) ENEMA 133ML RECTAL PRN (09:15)
[2017-04-16] MEDS ORDERED: GLUCAGON 1 MG/ML VIAL OTHER PRN (09:15)
[2017-04-16] MEDS: ALBUMIN 5% INJ 250 ML IV PRN (09:50)
[2017-04-16] MEDS: INSULIN ASPART SUPPLEMENTAL SCALE SQ SCH ×4 (10:00→22:00)
--- NOTE | 2017-04-16 10:46 | EKG ---
Date Performed: 04/16/2017 Time Performed: 04:35:00 PTAGE: 81 years EKG: Sinus rhythm Left axis deviation Borderline ECG NO PREVIOUS TRACING DOCTOR: Cody Diaz Interpretating Date/Time 04/16/2017 10:44:35
[2017-04-16] MEDS: BUMETANIDE 25 MG/100 ML CONTINOUS DRIP IV SCH (11:28)
[2017-04-16] MEDS: METOCLOPRAMIDE HCL 10 MG/2 ML VIAL IV PUSH SCH ×3 (12:00→21:00)
[2017-04-16 12:41] LABS: CREATININE 2.4 MG/DL (0.60-1.30)
[2017-04-16] MEDS ORDERED: DEXTROSE 50% IN WATER 50 ML SYRINGE IV PUSH ONE (14:15)
[2017-04-16] MEDS ORDERED: SODIUM BICARBONATE 8.4% INJ 50 MEQ/50 ML SYR IV PUSH ONE (14:15)
[2017-04-16] MEDS ORDERED: INSULIN HUMAN REGULAR 1,000 UNITS/10 ML VIAL IV PUSH ONE (14:15)
--- NOTE | 2017-04-16 14:24 | PD.CAR.PN ---
CVT Progress Note Subjective/Hospital Course: 81/ m with history of chest tightness off and on for the last couple of months with exertion, history of coronary artery disease with prior stent, also prior NC, presented for further evaluation and outpatient cardiac cath by Dr. Yoder. The patient was found to have an ejection fraction of 60% left main disease, distal 90% proximally, the ostial 80%, mid-distal LAD 70, the circ was 80%. We were consulted to evaluate for coronary artery bypass grafting to the LAD and the OM. Pt was taken immediately to OR 04/15 PAST MEDICAL HISTORY: Coronary artery disease, Paroxysmal atrial fibrillation ( xarelto) , Hyperlipidemia, Hypertension, Intraventricular conduction defect , Trace mitral regurgitation, Trace aortic insufficiency, Trace tricuspid insufficiency, Morbid obesity with BMI of 56, Benign prostatic hypertrophy, Chronic anemia, Sleep apnea, History of sinus bradycardia, ablation for the atrial flutter. surgery: 04/15 Emergent CABG x 2, BULLOCK to LAD - good, SVG to OM- good, EVH (R) sternal plating crystalloid 2500cc, EBL 1500cc, cell saver 750cc Pump time 45min extubated after surgery 04/16 still remains on 10L simple mask needs aggressive pulm toileting started on Bumex gtt with albumin / q6hr BMP s/p NA Bicarb , calcium for elevated K+ HX of afib / will need to resume xarelto when chest tubes out Creatinine 1.84/ consult Nephro repeat K+ 6/ d50/ insulin and additional NA bicarb given Objective: GENERAL: A&O x3 SKIN: Warm and dry. prevena to chest , gabriel wrap to right leg HEAD: Atraumatic. Normocephalic. EYES: Pupils equal and round. No scleral icterus. No injection or drainage. ENT: No nasal bleeding or discharge. Mucous membranes pink and moist. NECK: Trachea midline. No JVD. CARDIOVASCULAR: Regular rate and rhythm, general edema RESPIRATORY: bibasilar crackles No accessory muscle use. . Breath sounds equal bilaterally. chest tube to wall suction, no air leak drained 290cc/ 12 hrs GASTROINTESTINAL: Abdomen soft, non-tender, nondistended. Hepatic and splenic margins not palpable. MUSCULOSKELETAL: Extremities without clubbing, cyanosis, or edema. No obvious deformities. NEUROLOGICAL: Awake and alert. No obvious cranial nerve deficits. Motor grossly within normal limits. Five out of 5 muscle strength in the arms and legs. Normal speech. PSYCHIATRIC: Appropriate mood and affect; insight and judgment normal. Vital Signs Date Time Temp Pulse Resp B/P (MAP) Pulse Ox O2 Delivery O2 Flow Rate FiO2 04/16/17 12:00 98.2 85 20 150/98 (115) 85 152/40 (77) 04/16/17 12:00 99 Simple Mask 10.00 04/16/17 12:00 83 04/16/17 09:54 97 Simple Mask 6.00 04/16/17 08:52 98.1 87 20 139/40 (73) 99 04/16/17 07:00 81 04/16/17 07:00 99 Simple Mask 10.00 04/16/17 03:01 95 Simple Mask 10.00 04/16/17 03:00 98.0 82 16 144/47 (79) 95 04/16/17 03:00 80 04/16/17 00:47 94 50 04/15/17 23:00 73 04/15/17 23:00 98.2 74 14 148/63 (91) 95 04/15/17 22:22 91 Simple Mask 10.00 04/15/17 22:15 94 Nasal Cannula 6 04/15/17 22:15 92 Nasal Cannula 6.00 04/15/17 20:55 97 50 04/15/17 20:40 94 60 04/15/17 20:10 94 60 04/15/17 20:09 60 04/15/17 19:00 60 04/15/17 19:00 78 04/15/17 19:00 97.9 77 12 113/48 (69) 92 04/15/17 18:30 80 04/15/17 18:04 93 60 04/15/17 18:00 63 04/15/17 18:00 97.7 59 12 101/46 (64) 94 04/15/17 18:00 100 Labs: Laboratory Tests Test 04/16/17 04:30 04/16/17 11:56 White Blood Count 13.2 TH/MM3 (4.0-11.0) Red Blood Count 3.24 MIL/MM3 (4.50-5.90) Hemoglobin 10.5 GM/DL (13.0-17.0) Hematocrit 30.9 % (39.0-51.0) Mean Corpuscular Volume 95.5 FL (80.0-100.0) Mean Corpuscular Hemoglobin 32.3 PG (27.0-34.0) Mean Corpuscular Hemoglobin Concent 33.8 % (32.0-36.0) Red Cell Distribution Width 13.3 % (11.6-17.2) Platelet Count 123 TH/MM3 (150-450) Mean Platelet Volume 8.3 FL (7.0-11.0) Blood Urea Nitrogen 48 MG/DL (7-18) 55 MG/DL (7-18) Creatinine 1.85 MG/DL (0.60-1.30) 2.40 MG/DL (0.60-1.30) Random Glucose 151 MG/DL (74-106) 119 MG/DL (74-106) Calcium Level 8.3 MG/DL (8.5-10.1) 9.0 MG/DL (8.5-10.1) Magnesium Level 2.7 MG/DL (1.5-2.5) Sodium Level 139 MEQ/L (136-145) 141 MEQ/L (136-145) Potassium Level 5.4 MEQ/L (3.5-5.1) 5.7 MEQ/L (3.5-5.1) Chloride Level 110 MEQ/L (98-107) 108 MEQ/L (98-107) Carbon Dioxide Level 23.1 MEQ/L (21.0-32.0) 25.0 MEQ/L (21.0-32.0) Anion Gap 6 MEQ/L (5-15) 8 MEQ/L (5-15) Estimat Glomerular Filtration Rate 35 ML/MIN (>89) 26 ML/MIN (>89) (Avelina Duran) Result Diagram: 04/16/17 0430 04/16/17 1156 Telemetry: NSR no acute changes (Avelina Duran) (1) Morbid obesity (2) Chronic kidney disease Plan: worsening indices K+ 6 additional bicarb, D50 and insulin given await nephro consult on bumex gtt with albumin (3) Hyperkalemia (4) Unstable angina (5) CAD (coronary artery disease) (6) S/P CABG (coronary artery bypass graft) Plan: on ASA, amiodarone , statin (7) Respiratory insufficiency Plan: aggressive pulm toileting nebs ezpap acapella (Avelina Duran) Plan: Patient has h/o atrial fibrillation for which he has been anticoagulated and taking Tikosyn. Will restart it today and request Dr. Yoder's assistance. (1) Morbid obesity (2) Chronic kidney disease Plan: worsening indices K+ 6 additional bicarb, D50 and insulin given await nephro consult on bumex gtt with albumin (3) Hyperkalemia (4) Unstable angina (5) CAD (coronary artery disease) (6) S/P CABG (coronary artery bypass graft) Plan: on ASA, amiodarone , statin (7) Respiratory insufficiency Plan: aggressive pulm toileting nebs ezpap acapella (Taylor Gordon MD) Problem Qualifiers (1) Chronic kidney disease: Qualified Codes: N18.3 - Chronic kidney disease, stage 3 (moderate) Avelina Duran Apr 16, 2017 14:24 Taylor Gordon MD Apr 17, 2017 12:00
--- NOTE | 2017-04-16 14:53 | PD.CONS ---
[facility] Service Nephrology Consult Requested By CARMEN Duran Reason for Consult CORINE Primary Care Physician Leonardo Davis MD History of Present Illness The patient is a 81 yo [place] male with PMHx of CAD, A fib, HLD, HTN, BPH, Anemia, SHAHEEN who underwent emergent 2 vessel CABG 04/15/17 after it was determined by cardiac cath yesterday AM that he had severe disease. To the patient's knowledge, he did not have any previous CKD prior to this event. Admitting SCr 1.46 that subsequently worsened today to 2.40 with eGFR of 26. He is non- oliguric at the present and is awake and alert. Denies any recent illness, no vomiting, no diarrhea, and no NSAID use at home. Says that he had labs drawn by his PCP [place] last week for which his says she can bring to us tomorrow. (Urvashi Lee) Review of Systems Respiratory: COMPLAINS OF: Shortness of breath Cardiovascular: COMPLAINS OF: Lower Extremity Edema (Urvashi Lee) Past Family Social History Allergies: Coded Allergies: crab (Unverified Allergy, Intermediate, DIARRHEA AND RASH, 04/15/17) bee venom protein (honey bee) (Verified Allergy, Unknown, 04/15/17) spinach (Verified Allergy, Unknown, 04/15/17) Uncoded Allergies: SHELLFISH (Allergy, Unknown, 04/15/17) Past Medical History CAD s/p 2 vessel CABG 04/15 Atrial fibrillation HLD HTN BPH Anemia SHAHEEN Morbid Obesity Past Surgical History 2 vessel CABG 04/15/17 Cardiac cath 2004 Cardiac ablation for A fib Appendectomy Reported Medications Xarelto (Rivaroxaban) 20 Mg Tab 20 Mg PO DAILY Vitamin D3 (Cholecalciferol) 2,000 Unit Cap 2,000 Units PO DAILY Vitamin C ER (Ascorbic Acid) 500 Mg Sohan 1,000 Mg PO Tylenol (Acetaminophen) 325 Mg Tab 650 Mg PO Q6H Tikosyn (Dofetilide) 250 Mcg Cap 250 Mcg PO BID For Creatinine Clearance 40-60 mL/min Spironolactone 25 Mg Tab 25 Mg PO DAILY Klor-Con EF (Potassium Bicarbonate) 25 Meq Tab 100 Meq PO DAILY Multi-Vitamin Daily (Multiple Vitamin) 1 Tab Tab 1 Tab PO DAILY Magnesium Citrate 100 Mg Tab 200 Mg PO BID PRN Lisinopril 40 Mg Tab 40 Mg PO DAILY Isosorbide Mononitrate 10 Mg Tab 10 Mg PO DAILY Take 2 doses 7 hours apart. Chromagen Softgel (Btyd-G-Asrgsz-B6-B12-Zn) 75-60-1 Mg Capsule 1 Cap PO DAILY Furosemide 40 Mg Tab 40 Mg PO BID Fluocinonide Topical (Fluocinonide) 0.05% Soln 1 Applic TOPICAL DAILY [place]-3 Fish Oil/Vitamin (Fish Oil-Cholecalciferol) 1,000-1,000 Mg Cap 1 Cap PO DAILY Doxazosin (Doxazosin Mesylate) 8 Mg Tab 8 Mg PO DAILY Carvedilol 3.125 Mg Tab 3.125 Mg PO BID Atorvastatin (Atorvastatin Calcium) 80 Mg Tab 80 Mg PO HS Aspirin EC (Aspirin) 81 Mg Tabdr 81 Mg PO DAILY Amlodipine (Amlodipine Besylate) 2.5 Mg Tab 2.5 Mg PO DAILY Active Ordered Medications Current Medications Medications (Trade) Dose Ordered Sig/[place] Route Start Time Stop Time Status Last Admin (Percocet 5-325 Mg) 1 tab Q4H PRN PO 04/15/17 08:30 (Percocet 5-325 Mg) 2 tab Q4H PRN PO 04/15/17 08:30 04/16/17 14:30 (NS Flush) 2 ml BID IV FLUSH 04/15/17 21:00 04/16/17 08:48 (NS Flush) 2 ml UNSCH PRN IV FLUSH 04/15/17 17:00 Albumin Human 250 ml @ 250 mls/hr UNSCH PRN IV 04/15/17 17:00 04/16/17 09:50 Lactated Ringer's 500 ml @ 500 mls/hr Q1H PRN IV 04/15/17 16:58 04/15/17 20:00 (Aspirin Chew) 81 mg DAILY PO 04/16/17 09:00 04/16/17 08:48 (Protonix) 40 mg DAILY@06 PO 04/16/17 06:00 04/16/17 05:07 (Cordarone) 400 mg Q8HR PO 04/15/17 22:00 04/16/17 14:30 (Tylenol) 650 mg Q4H PRN PO 04/15/17 17:00 (Tylenol Supp) 650 mg Q4H PRN RECTAL 04/15/17 17:00 (Zofran Inj) 4 mg Q6H PRN IV PUSH 04/15/17 17:00 04/16/17 05:07 Potassium Chloride 100 ml @ 50 mls/hr UNSCH PRN IV 04/15/17 17:00 Potassium Chloride 100 ml @ 50 mls/hr UNSCH PRN IV 04/15/17 17:00 Potassium Chloride 100 ml @ 50 mls/hr UNSCH PRN IV 04/15/17 17:00 (KCl) 20 meq UNSCH PRN PO 04/15/17 17:00 (KCl) 40 meq UNSCH PRN PO 04/15/17 17:00 Insulin Human Regular 100 units/ Sodium Chloride 100 ml @ 3 mls/hr TITRATE PRN IV 04/15/17 17:00 04/15/17 18:00 Cefazolin Sodium/ Dextrose 50 ml @ 100 mls/hr Q8H IV 04/15/17 22:00 04/17/17 06:29 04/16/17 14:29 (Duoneb Neb) 1 ampule Q2HR NEB PRN NEB 04/15/17 17:00 04/16/17 09:54 (Reglan Inj) 5 mg ACHS IV PUSH 04/16/17 12:00 04/16/17 12:00 Albumin Human 50 ml @ 60 mls/hr Q6H IV 04/16/17 10:00 (Duoneb Neb) 1 ampule Q6HR WHILE AWAKE NEB NEB 04/16/17 14:00 04/18/17 13:59 04/16/17 13:46 (Colace) 100 mg BID PO 04/16/17 21:00 (Theragran M Tab) 1 tab DAILY PO 04/17/17 09:00 (Dulcolax Supp) 10 mg UNSCH PRN RECTAL 04/16/17 09:15 (Miralax) 17 gm DAILY PO 04/17/17 09:00 (Senokot) 8.6 mg HS PO 04/16/17 21:00 (Fleets Enema (Adult)) 118 ml UNSCH PRN RECTAL 04/16/17 09:15 (NovoLOG SUPPLEMENTAL SCALE) 1 02,06,10,14,18,22 SQ 04/16/17 10:00 04/17/17 09:59 (D50w (Vial) Inj) 50 ml UNSCH PRN IV PUSH 04/16/17 09:15 (Glucagon Inj) 1 mg UNSCH PRN OTHER 04/16/17 09:15 Bumetanide 100 ml @ 2 mls/hr Q24H IV 04/16/17 09:45 04/16/17 11:28 (NovoLOG SUPPLEMENTAL SCALE) 1 ACHS SQ 04/17/17 12:00 (Lipitor) 40 mg HS PO 04/16/17 21:00 Family History HTN Stomach [place] Social History Denies any current tobacco use No EtOH No illicits (Urvashi Lee) Physical Exam Vital Signs Vital Signs Date Time Temp Pulse Resp B/P (MAP) Pulse Ox O2 Delivery O2 Flow Rate FiO2 04/16/17 12:00 98.2 85 20 150/98 (115) 85 152/40 (77) 04/16/17 12:00 99 Simple Mask 10.00 04/16/17 12:00 83 04/16/17 09:54 97 Simple Mask 6.00 04/16/17 08:52 98.1 87 20 139/40 (73) 99 04/16/17 07:00 81 04/16/17 07:00 99 Simple Mask 10.00 04/16/17 03:01 95 Simple Mask 10.00 04/16/17 03:00 98.0 82 16 144/47 (79) 95 04/16/17 03:00 80 04/16/17 00:47 94 50 04/15/17 23:00 73 04/15/17 23:00 98.2 74 14 148/63 (91) 95 04/15/17 22:22 91 Simple Mask 10.00 04/15/17 22:15 94 Nasal Cannula 6 04/15/17 22:15 92 Nasal Cannula 6.00 04/15/17 20:55 97 50 04/15/17 20:40 94 60 04/15/17 20:10 94 60 04/15/17 20:09 60 04/15/17 19:00 60 04/15/17 19:00 78 04/15/17 19:00 97.9 77 12 113/48 (69) 92 04/15/17 18:30 80 04/15/17 18:04 93 60 04/15/17 18:00 63 04/15/17 18:00 97.7 59 12 101/46 (64) 94 04/15/17 18:00 100 Physical Exam GENERAL: Laying in bed in NAD. Awake, alert. SKIN: Warm and dry. HEAD: Atraumatic. Normocephalic. EYES: Pupils equal and round. No scleral icterus. No injection or drainage. ENT: No nasal bleeding or discharge. Mucous membranes pink and moist. NECK: Trachea midline. No JVD. CARDIOVASCULAR: Regular rate and rhythm. RESPIRATORY: No accessory muscle use. Clear to auscultation. Breath sounds equal bilaterally. GASTROINTESTINAL: Abdomen soft, non-tender, nondistended. Hepatic and splenic margins not palpable. MUSCULOSKELETAL: Extremities without clubbing, cyanosis. 1+ edema BLE. Appears he has some degree of lymphedema as well. RLE wrapped s/p vein harvesting. NEUROLOGICAL: Awake and alert. Normal speech. PSYCHIATRIC: Appropriate mood and affect; insight and judgment normal. Laboratory Laboratory Tests Test 04/15/17 18:30 04/16/17 04:30 04/16/17 11:56 White Blood Count 12.0 13.2 Red Blood Count 2.88 3.24 Hemoglobin 9.5 10.5 Hematocrit 27.9 30.9 Mean Corpuscular Volume 96.8 95.5 Mean Corpuscular Hemoglobin 33.0 32.3 Mean Corpuscular Hemoglobin Concent 34.1 33.8 Red Cell Distribution Width 13.2 13.3 Platelet Count 113 123 Mean Platelet Volume 8.3 8.3 Neutrophils (%) (Auto) 83.6 Lymphocytes (%) (Auto) 11.0 Monocytes (%) (Auto) 4.7 Eosinophils (%) (Auto) 0.4 Basophils (%) (Auto) 0.3 Neutrophils # (Auto) 10.0 Lymphocytes # (Auto) 1.3 Monocytes # (Auto) 0.6 Eosinophils # (Auto) 0.1 Basophils # (Auto) 0.0 CBC Comment AUTO DIFF Differential Comment AUTO DIFF CONFIRMED Platelet Estimate LOW Platelet Morphology Comment NORMAL Blood Urea Nitrogen 44 48 55 Creatinine 1.68 1.85 2.40 Random Glucose 124 151 119 Calcium Level 8.0 8.3 9.0 Magnesium Level 2.8 2.7 Sodium Level 144 139 141 Potassium Level 4.8 5.4 5.7 Chloride Level 110 110 108 Carbon Dioxide Level 23.9 23.1 25.0 Anion Gap 10 6 8 Estimat Glomerular Filtration Rate 40 35 26 (Urvashi Lee) Result Diagram: 04/16/17 0430 04/16/17 1156 Assessment and Plan Problem List: (1) Acute renal failure (ARF) ICD Codes: N17.9 - Acute kidney failure, unspecified Plan: The patient sustained 2 major insults to the kidney with exposure to contrast as well as his CABG. He potentially had some underlying CKD as his admitting SCr was 1.4. His says she will bring in some older labs for comparison with most recent being last week. For the present, we will continue to monitor. Will re-eval in the AM. The patient and his family were made aware of his current status and advised that renal functions may get worse before they get better. Medications should be adjusted for the patient's renal decline. (2) CAD (coronary artery disease) ICD Codes: I25.10 - Atherosclerotic heart disease of [place] coronary artery without angina pectoris (3) Hyperkalemia ICD Codes: E87.5 - Hyperkalemia Plan: Repeat level pending. Likely related to acute renal insufficiency. Currently on Bumex drip so should correct (4) Morbid obesity ICD Codes: E66.01 - Morbid (severe) obesity due to excess calories (5) S/P CABG (coronary artery bypass graft) ICD Codes: Z95.1 - Presence of aortocoronary bypass graft (Urvashi Lee ) Assessment and Plan The exam, history, and the medical decision-making described in the above note were completed with the assistance of the PA-C. I reviewed and agree with the findings presented. I attest that I had a [id number] encounter with the patient on the same day, and personally performed and documented my assessment and findings in the medical record. (Paul Loyd MD) Urvashi Lee Apr 16, 2017 14:53 Paul Loyd MD Apr 17, 2017 15:48
[2017-04-16] MEDS: ALBUMIN 25% INJ 50 ML IV SCH ×2 (16:31→21:11)
[2017-04-16 19:02] LABS: BICARBONATE 24.9 MEQ/L (21.0-32.0); CALCIUM 8.1 MG/DL (8.5-10.1); CREATININE 2.76 MG/DL (0.60-1.30)
[2017-04-16 19:53] LABS: PHOSPHORUS 4.7 MG/DL (2.5-4.9)
[2017-04-16] MEDS ORDERED: CHLOROTHIAZIDE SOD 500 MG VIAL IV STA (20:24)
[2017-04-16] MEDS ORDERED: RESP: ALBUTEROL 1.25 MG/3 ML NEB (SCH) NEB STA (20:25)
[2017-04-16] MEDS ORDERED: PATIROMER CALCIUM SORBITEX 16.8 GM PKT PO STA (20:26)
[2017-04-16] MEDS ORDERED: SODIUM POLYSTYRENE SULFONATE SUSP 15 GM/60 ML CUP PO STA (20:35)
[2017-04-16] MEDS ORDERED: ATORVASTATIN 40 MG TAB PO SCH (21:00)
[2017-04-16] MEDS: DOCUSATE SODIUM 100 MG CAP PO SCH (21:10)
[2017-04-16] MEDS: SENNOSIDES 8.6 MG TAB PO SCH (21:10)
[2017-04-16 21:45] LABS: COMPLEMENT C3 92 MG/DL (90-180); COMPLEMENT C4 22 MG/DL (10-40)
[2017-04-16 21:59] LABS: AMORPHOUS SEDIMENT, URINE RARE; BACTERIA, URINE MANY /hpf; BILIRUBIN, URINE NEG (NEG); BLOOD, URINE SMALL (NEG); GLUCOSE,URINE NEG (NEG); HYALINE CAST, URINE 18 /lpf (RARE); KETONE, URINE NEG (NEG); MUCUS URINE FEW /lpf (OCC); NITRITE,URINE NEG (NEG); SQUAMOUS EPITHELIAL CELL URINE 2 /hpf (0-5); URINE COLOR YELLOW (YELLW/STRAW); URINE LEUKOCYTE ESTERASE LARGE (NEG)
[2017-04-17] VITALS (10 sets, daily range): BP systolic 95–150; BP diastolic 34–57; PULSE 81–120; RESP 16–20; TEMP 97.8–98.8; O2SAT 93–98
[2017-04-17 00:34] LABS: CALCIUM 8.3 MG/DL (8.5-10.1); CREATININE 3.17 MG/DL (0.60-1.30)
[2017-04-17] MEDS: RESP: ALBUTEROL 2.5 MG/IPRATROPIUM 0.5 MG NEB (PRN) NEB (01:58)
[2017-04-17] MEDS: INSULIN ASPART SUPPLEMENTAL SCALE SQ SCH ×5 (02:00→20:32)
[2017-04-17] MEDS: oxyCODONE/ACETAMINOPHEN 5 MG/325 MG TAB PO PRN ×4 (03:12→20:34)
[2017-04-17] MEDS: ALBUMIN 25% INJ 50 ML IV SCH ×4 (04:00→21:22)
[2017-04-17 05:09] LABS: AUTOMATED NEUTROPHIL # 12.7 TH/MM3 (1.8-7.7); BASOPHIL % 0.1 % (0.0-2.0); HEMATOCRIT 26.3 % (39.0-51.0); HEMOGLOBIN 8.9 GM/DL (13.0-17.0); LYMPH % 6.3 % (9.0-44.0); MEAN CELL VOLUME 96.6 FL (80.0-100.0); MEAN CORPUSCULAR HEMOGLOBIN 32.8 PG (27.0-34.0); MEAN CORPUSCULAR HGB CONC 33.9 % (32.0-36.0); MEAN PLATELET VOLUME 8.3 FL (7.0-11.0); MONOCYTE # 1.7 TH/MM3 (0-0.9); NEUT % 82.6 % (16.0-70.0); PLATELET COUNT 111 TH/MM3 (150-450); RED BLOOD COUNT 2.72 MIL/MM3 (4.50-5.90); RED CELL DISTRIBUTION WIDTH 13.7 % (11.6-17.2); WHITE BLOOD COUNT 15.4 TH/MM3 (4.0-11.0)
[2017-04-17] MEDS ORDERED: AMIODARONE INJ 450 MG in SODIUM CHLOR 0.9% (EXCEL) INJ 241 ML IV PRN (05:30)
[2017-04-17] MEDS ORDERED: AMIODARONE 150 MG/D5W 97 ML BOLUS 10 MINUTES IV ONE ×2 (05:30)
[2017-04-17] MEDS: ceFAZolin 2 GM PREMIX 50 ML IV SCH (05:36)
[2017-04-17] MEDS: PANTOPRAZOLE SOD 40 MG DELAYED RELEASE TAB PO SCH (05:36)
[2017-04-17] MEDS: AMIODARONE 200 MG TAB PO SCH ×2 (05:36→21:22)
[2017-04-17 05:38] LABS: BICARBONATE 23.5 MEQ/L (21.0-32.0); CALCIUM 8.1 MG/DL (8.5-10.1); CREATININE 3.65 MG/DL (0.60-1.30); MAGNESIUM 2.6 MG/DL (1.5-2.5)
[2017-04-17] MEDS ORDERED: DOPamine 800 MG/500 ML INJ 500 ML ONE (08:27)
[2017-04-17] MEDS: MULTIVITAMINS/MINERALS THERAPEUTIC TAB PO SCH (08:48)
[2017-04-17] MEDS: POLYETHYLENE GLYCOL 17 GM PKG PO SCH (08:48)
[2017-04-17] MEDS: DOCUSATE SODIUM 100 MG CAP PO SCH ×2 (08:48→20:33)
[2017-04-17] MEDS: SODIUM CHLORIDE 0.9% FLUSH 10 ML FLUSH IV FLUSH SCH ×2 (08:49→20:32)
[2017-04-17] MEDS: ASPIRIN 81 MG CHEW TAB PO SCH (08:49)
[2017-04-17] MEDS: METOCLOPRAMIDE HCL 10 MG/2 ML VIAL IV PUSH SCH ×2 (08:49→12:26)
[2017-04-17] MEDS: RESP: ALBUTEROL 2.5 MG/IPRATROPIUM 0.5 MG NEB (SCH) NEB ×3 (08:50→19:38)
--- NOTE | 2017-04-17 10:52 | RADRPT ---
EXAM DATE/TIME: 04/17/2017 09:59 [facility] COMPARISON: No previous studies available for comparison. INDICATIONS : Increased BUN/Creatinine. MEDICAL HISTORY : Congestive heart failure. Hypertension. Eye problems. Hyperlipidemia. Sleep apnea. A Fib. SURGICAL HISTORY : Cardiac ablation x2. Coronary stents. Cardiac cath. ENCOUNTER: Initial ACUITY: 1 day PAIN SCORE: 0/10 LOCATION: Bilateral flank MEASUREMENTS: RIGHT KIDNEY: 9.3 x 5.8 x 4.7 cm LEFT KIDNEY: 6.5 x 6.0 x 4.8 cm FINDINGS: RIGHT KIDNEY: Echogenic renal cortex with small cyst in the midpole measuring 2.1 x 2.4 x 2.0 cm. No hydronephrosis or radiopaque renal calculi. LEFT KIDNEY: Small in size with echogenic cortex. No hydronephrosis or radiopaque renal calculi. BLADDER: Bladder is decompressed secondary to Zurita catheter. CONCLUSION: 1. Bilateral echogenic kidneys consistent with medical renal disease. 2. Asymmetrical atrophic appearing left kidney. 3. No evidence of obstructive uropathy. 4. 2.4 cm cyst in the mid right kidney. Christopher Dunn MD on April 17, 2017 at 10:45 Board Certified Radiologist. This report was verified electronically.
[2017-04-17] MEDS ORDERED: INSULIN ASPART SUPPLEMENTAL SCALE SQ SCH (12:00)
[2017-04-17] MEDS ORDERED: DOFETILIDE 250 MCG CAP PO SCH (12:15)
[2017-04-17 12:58] LABS: BICARBONATE 26.8 MEQ/L (21.0-32.0); CALCIUM 8.1 MG/DL (8.5-10.1); CREATININE 3.7 MG/DL (0.60-1.30)
[2017-04-17] MEDS: BUMETANIDE 25 MG/100 ML CONTINOUS DRIP IV SCH (14:20)
--- NOTE | 2017-04-17 14:26 | PD.CAR.PN ---
CVT Progress Note Subjective/Hospital Course: 81/ m with history of chest tightness off and on for the last couple of months with exertion, history of coronary artery disease with prior stent, also prior [place], presented for further evaluation and outpatient cardiac cath by Dr. Yoder. The patient was found to have an ejection fraction of 60% left main disease, distal 90% proximally, the ostial 80%, mid-distal LAD 70, the circ was 80%. We were consulted to evaluate for coronary artery bypass grafting to the LAD and the OM. Pt was taken immediately to OR 04/15 PAST MEDICAL HISTORY: Coronary artery disease, Paroxysmal atrial fibrillation ( xarelto) , Hyperlipidemia, Hypertension, Intraventricular conduction defect , Trace mitral regurgitation, Trace aortic insufficiency, Trace tricuspid insufficiency, Morbid obesity with BMI of 56, Benign prostatic hypertrophy, Chronic anemia, Sleep apnea, History of sinus bradycardia, ablation for the atrial flutter. surgery: 04/15 Emergent CABG x 2, BULLOCK to LAD - good, SVG to OM- good, EVH (R) sternal plating crystalloid 2500cc, EBL 1500cc, cell saver 750cc Pump time 45min extubated after surgery 04/16 still remains on 10L simple mask needs aggressive pulm toileting started on Bumex gtt with albumin / q6hr BMP s/p NA Bicarb , calcium for elevated K+ HX of afib / will need to resume xarelto when chest tubes out Creatinine 1.84/ consult Nephro repeat K+ 6/ d50/ insulin and additional NA bicarb given Objective: Vital Signs Date Time Temp Pulse Resp B/P (MAP) Pulse Ox O2 Delivery O2 Flow Rate FiO2 04/17/17 12:35 91 141/48 04/17/17 08:51 93 Simple Mask 8.00 04/17/17 07:35 97 Simple Mask 8.00 04/17/17 07:32 98.0 112 16 95/45 (62) 96 118/36 (63) 04/17/17 07:00 112 04/17/17 05:37 121 114/32 04/17/17 05:37 115 134/33 04/17/17 04:45 120 04/17/17 04:00 95 Simple Mask 8.00 04/17/17 03:55 91 Simple Mask 6.00 04/17/17 03:00 97.8 86 16 109/45 (66) 96 125/34 (64) 04/17/17 03:00 97 Simple Mask 6.00 04/17/17 03:00 81 04/17/17 02:00 97 Simple Mask 6.00 04/16/17 23:00 85 04/16/17 23:00 98.4 83 20 96 132/38 (69) 04/16/17 23:00 92 Bi-Pap 6.00 Simple Mask 04/16/17 21:00 97 Bi-Pap 6.00 Simple Mask 04/16/17 19:45 95 Simple Mask 8.00 04/16/17 19:00 82 04/16/17 19:00 97.7 82 18 151/44 (79) 94 04/16/17 19:00 97 Simple Mask 6.00 04/16/17 16:00 98.3 82 18 () 95 129/45 (73) 04/16/17 16:00 94 Simple Mask 6.00 04/16/17 15:00 97 Labs: Laboratory Tests Test 04/17/17 04:27 04/17/17 11:54 White Blood Count 15.4 TH/MM3 (4.0-11.0) Red Blood Count 2.72 MIL/MM3 (4.50-5.90) Hemoglobin 8.9 GM/DL (13.0-17.0) Hematocrit 26.3 % (39.0-51.0) Mean Corpuscular Volume 96.6 FL (80.0-100.0) Mean Corpuscular Hemoglobin 32.8 PG (27.0-34.0) Mean Corpuscular Hemoglobin Concent 33.9 % (32.0-36.0) Red Cell Distribution Width 13.7 % (11.6-17.2) Platelet Count 111 TH/MM3 (150-450) Mean Platelet Volume 8.3 FL (7.0-11.0) Neutrophils (%) (Auto) 82.6 % (16.0-70.0) Lymphocytes (%) (Auto) 6.3 % (9.0-44.0) Monocytes (%) (Auto) 11.0 % (0.0-8.0) Eosinophils (%) (Auto) 0.0 % (0.0-4.0) Basophils (%) (Auto) 0.1 % (0.0-2.0) Neutrophils # (Auto) 12.7 TH/MM3 (1.8-7.7) Lymphocytes # (Auto) 1.0 TH/MM3 (1.0-4.8) Monocytes # (Auto) 1.7 TH/MM3 (0-0.9) Eosinophils # (Auto) 0.0 TH/MM3 (0-0.4) Basophils # (Auto) 0.0 TH/MM3 (0-0.2) CBC Comment AUTO DIFF Differential Comment AUTO DIFF CONFIRMED Platelet Estimate LOW (NORMAL) Platelet Morphology Comment NORMAL (NORMAL) Red Cell Morphology Comment NORMAL (NORMAL) Blood Urea Nitrogen 66 MG/DL (7-18) 66 MG/DL (7-18) Creatinine 3.65 MG/DL (0.60-1.30) 3.70 MG/DL (0.60-1.30) Random Glucose 142 MG/DL (74-106) 143 MG/DL (74-106) Calcium Level 8.1 MG/DL (8.5-10.1) 8.1 MG/DL (8.5-10.1) Magnesium Level 2.6 MG/DL (1.5-2.5) Sodium Level 138 MEQ/L (136-145) 138 MEQ/L (136-145) Potassium Level 5.5 MEQ/L (3.5-5.1) 5.6 MEQ/L (3.5-5.1) Chloride Level 104 MEQ/L (98-107) 104 MEQ/L (98-107) Carbon Dioxide Level 23.5 MEQ/L (21.0-32.0) 26.8 MEQ/L (21.0-32.0) Anion Gap 11 MEQ/L (5-15) 7 MEQ/L (5-15) Estimat Glomerular Filtration Rate 16 ML/MIN (>89) 16 ML/MIN (>89) Result Diagram: 04/17/17 2547 04/17/17 1154 (1) Morbid obesity (2) Chronic kidney disease Plan: worsening indices K+ 5.6 additional kayexelate additional bicarb, D50 and insulin given nephro following decrease bumex gtt with albumin (3) Hyperkalemia (4) Unstable angina (5) CAD (coronary artery disease) (6) S/P CABG (coronary artery bypass graft) Plan: on ASA, amiodarone , statin remove chest tube, aggressive PT/OT (7) Respiratory insufficiency Plan: aggressive pulm toileting nebs ezpap acapella (8) Afib Plan: atop amiodarone resume tikosyn Problem Qualifiers (1) Chronic kidney disease: Qualified Codes: N18.3 - Chronic kidney disease, stage 3 (moderate) Avelina Duran Apr 17, 2017 14:26
[2017-04-17] MEDS ORDERED: SODIUM POLYSTYRENE SULFONATE SUSP 15 GM/60 ML CUP PO ONE (14:30)
--- NOTE | 2017-04-17 16:50 | HHI.NPPN ---
Subjective History of Present Illness The patient is a 81 yo [place] male with PMHx of CAD, A fib, HLD, HTN, BPH, Anemia, SHAHEEN who underwent emergent 2 vessel CABG 04/15/17 after it was determined by cardiac cath yesterday AM that he had severe disease. To the patient's knowledge, he did not have any previous CKD prior to this event. Admitting SCr 1.46 that subsequently worsened today to 2.40 with eGFR of 26. He is non- oliguric at the present and is awake and alert. Denies any recent illness, no vomiting, no diarrhea, and no NSAID use at home. Interval History Patient sitting up in a chair not in respiratory distress. Objective Data Data 04/17/17 04/18/17 18:59 06:59 Intake Total 502 ml Output Total 840 ml Balance -338 ml Intake Oral 240 ml IV Total 262 ml Output Urine Total 750 ml Chest Tube Drainage Total 90 ml # Bowel Movements 0 Vital Signs Date Time Temp Pulse Resp B/P (MAP) Pulse Ox O2 Delivery O2 Flow Rate FiO2 04/17/17 12:35 91 141/48 04/17/17 08:51 93 Simple Mask 8.00 04/17/17 07:35 97 Simple Mask 8.00 04/17/17 07:32 98.0 112 16 95/45 (62) 96 118/36 (63) 04/17/17 07:00 112 04/17/17 05:37 121 114/32 04/17/17 05:37 115 134/33 04/17/17 04:45 120 04/17/17 04:00 95 Simple Mask 8.00 04/17/17 03:55 91 Simple Mask 6.00 04/17/17 03:00 97.8 86 16 109/45 (66) 96 125/34 (64) 04/17/17 03:00 97 Simple Mask 6.00 04/17/17 03:00 81 04/17/17 02:00 97 Simple Mask 6.00 04/16/17 23:00 85 04/16/17 23:00 98.4 83 20 96 132/38 (69) 04/16/17 23:00 92 Bi-Pap 6.00 Simple Mask 04/16/17 21:00 97 Bi-Pap 6.00 Simple Mask 04/16/17 19:45 95 Simple Mask 8.00 04/16/17 19:00 82 04/16/17 19:00 97.7 82 18 151/44 (79) 94 04/16/17 19:00 97 Simple Mask 6.00 -: 04/17/17 0427 04/17/17 1154 Microbiology 04/16/17 Urine Culture - Preliminary, Resulted NO GROWTH IN 24 HOURS. Tubes & Lines: [place] Physical Exam General Appearance: No Acute Distress, Comfortable, Obese Eyes Eye Exam: Sclera White Pulmonary Resp Exam: Clear Bilaterally, Breath Sounds Equal, No Distress, Decreased Bases Cardiology CV Exam: Regular, Normal Sinus Rhythm, Good Perfusion Gastrointestinal/Abdomen GI Exam: Soft, Non-Tender Integumentary Skin Exam: Clear, Warm, Normal Turgor Extremeties Extremities Exam: Trace Edema Neurologic Neuro Exam: Alert, Awake Assessment/Plan Discussed Condition With: Patient, Spouse, Daughter Problem List: (1) Acute renal failure (ARF) ICD Codes: N17.9 - Acute kidney failure, unspecified Status: Acute Plan: The patient sustained 2 major insults to the kidney with exposure to contrast as well as his CABG. He potentially had some underlying CKD as his admitting SCr was 1.4. Patient's creatinine level was noted to have been 1.3 April 08, 2017 with an estimated GFR of 53. Urine output being maintained with bumetanide drip however the patient's creatinine level is deteriorating slowly. Hopefully will plateau prior to necessity to consider renal replacement therapy i.e. dialysis as discussed with the patient and his and daughter. This remains to be determined however. Prognostic issues regarding renal recovery was reviewed with them also.The patient and his family were made aware of his current status and advised that renal functions may get worse before they get better. Agree with reducing bumetanide drip at this time. Continue to monitor renal indices closely. Medications should be adjusted for the patient's renal decline. (2) CKD (chronic kidney disease) stage 3, GFR 30-59 ml/min ICD Codes: N18.3 - Chronic kidney disease, stage 3 (moderate) Status: Chronic Plan: As suggested by renal ultrasound. 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 Regardless I left kidney is not salvageable as discussed with patient and his . Pre-existing CKD however did render the patient more susceptible to development of acute kidney injury as discussed with them despite fairly good renal reserve prior.. (4) Hyperkalemia ICD Codes: E87.5 - Hyperkalemia Plan: Continue to monitor potassium level. If the patient's hyperkalemia worsen significantly we may have to consider renal replacement therapy as discussed with the patient and his . (5) CAD (coronary artery disease) ICD Codes: I25.10 - Atherosclerotic heart disease of [place] coronary artery without angina pectoris (6) S/P CABG (coronary artery bypass graft) ICD Codes: Z95.1 - Presence of aortocoronary bypass graft Paul Loyd MD Apr 17, 2017 16:50
[2017-04-17] MEDS ORDERED: ERGOCALCIFEROL (VIT D2) 50,000 UNIT CAP PO SCH (17:00)
[2017-04-17] MEDS: METOPROLOL TARTRATE 25 MG TAB PO SCH ×2 (18:16→20:34)
--- NOTE | 2017-04-17 18:29 | EKG ---
Date Performed: 04/17/2017 Time Performed: 04:43:16 PTAGE: 81 years EKG: Atrial fibrillation with rapid ventricular response with PVC(s) or aberrant ventricular con duction Leftward axis Poor R wave progression - probable normal variant Abnormal ECG PREVIOUS TRACING : 04/16/2017 04.35 Compared to previous tracing, atrial fibrillation has repla yessi Sinus rhythm . DOCTOR: Aaron Park Interpretating Date/Time 04/17/2017 18:27:41
[2017-04-17 19:59] LABS: BICARBONATE 24.7 MEQ/L (21.0-32.0); CALCIUM 8.2 MG/DL (8.5-10.1); CREATININE 3.94 MG/DL (0.60-1.30)
[2017-04-17] MEDS: ATORVASTATIN 80 MG TAB PO SCH (20:33)
[2017-04-17] MEDS: SENNOSIDES 8.6 MG TAB PO SCH (20:33)
[2017-04-17 23:58] LABS: BICARBONATE 27.2 MEQ/L (21.0-32.0); CALCIUM 8.2 MG/DL (8.5-10.1); CREATININE 4.1 MG/DL (0.60-1.30)
[2017-04-18] VITALS (14 sets, daily range): BP systolic 121–154; BP diastolic 35–64; PULSE 68–91; RESP 16–20; TEMP 97.6–98.8; O2SAT 93–99
[2017-04-18] MEDS: INSULIN ASPART SUPPLEMENTAL SCALE SQ SCH ×6 (00:30→20:48)
[2017-04-18] MEDS: ALBUMIN 25% INJ 50 ML IV SCH (03:39)
[2017-04-18 04:29] LABS: HEMOGLOBIN 7.8 GM/DL (13.0-17.0); MEAN CELL VOLUME 96.1 FL (80.0-100.0); MEAN CORPUSCULAR HEMOGLOBIN 32.8 PG (27.0-34.0); MEAN CORPUSCULAR HGB CONC 34.1 % (32.0-36.0); MEAN PLATELET VOLUME 8.4 FL (7.0-11.0); PLATELET COUNT 95 TH/MM3 (150-450); RED BLOOD COUNT 2.39 MIL/MM3 (4.50-5.90); RED CELL DISTRIBUTION WIDTH 13.5 % (11.6-17.2); WHITE BLOOD COUNT 12.2 TH/MM3 (4.0-11.0)
[2017-04-18 04:50] LABS: CALCIUM 7.9 MG/DL (8.5-10.1); CREATININE 4.22 MG/DL (0.60-1.30)
[2017-04-18] MEDS: PANTOPRAZOLE SOD 40 MG DELAYED RELEASE TAB PO SCH (05:41)
[2017-04-18] MEDS: AMIODARONE 200 MG TAB PO SCH ×2 (05:42→20:36)
[2017-04-18] MEDS: oxyCODONE/ACETAMINOPHEN 5 MG/325 MG TAB PO PRN ×2 (06:22→13:59)
--- NOTE | 2017-04-18 06:22 | RADRPT ---
EXAM DATE/TIME: 04/18/2017 05:35 [facility] COMPARISON: CHEST SINGLE AP, April 16, 2017, 4:00. INDICATIONS : Evaluate for pneumothorax, post chest tube removal. MEDICAL HISTORY : Congestive heart failure. Hypertension A-fib SURGICAL HISTORY : Coronary artery stent. ENCOUNTER: Initial ACUITY: 1 week PAIN SCORE: 0/10 LOCATION: Bilateral chest FINDINGS: Right midlung and left base consolidation again noted, the side slightly worse in the interim. The le ft chest tube is Gopi of. No pneumothorax seen. Mild cardiomegaly similar to before. Patient has had previous median sternotomy. CONCLUSION: Slightly worse bilateral consolidation. Left chest tube out. No pneumothorax. Jones Nicolas MD on April 18, 2017 at 6:20 Board Certified Radiologist. This report was verified electronically.
[2017-04-18] MEDS ORDERED: FUROSEMIDE 40 MG/4 ML VIAL IV PUSH ONE (08:45)
[2017-04-18] MEDS: ASPIRIN 81 MG CHEW TAB PO SCH (09:00)
[2017-04-18] MEDS: RESP: ALBUTEROL 2.5 MG/IPRATROPIUM 0.5 MG NEB (SCH) NEB (09:13)
[2017-04-18] MEDS: POLYETHYLENE GLYCOL 17 GM PKG PO SCH (09:47)
[2017-04-18] MEDS: MULTIVITAMINS/MINERALS THERAPEUTIC TAB PO SCH (09:47)
[2017-04-18] MEDS: SODIUM CHLORIDE 0.9% FLUSH 10 ML FLUSH IV FLUSH SCH ×2 (09:48→20:36)
[2017-04-18] MEDS: DOCUSATE SODIUM 100 MG CAP PO SCH ×2 (09:49→20:36)
[2017-04-18] MEDS: RIVAROXABAN 15 MG TAB PO SCH (09:50)
[2017-04-18] MEDS: METOPROLOL TARTRATE 25 MG TAB PO SCH ×2 (09:50→20:36)
--- NOTE | 2017-04-18 12:55 | PD.CAR.PN ---
CVT Progress Note Subjective/Hospital Course: 81/ m with history of chest tightness off and on for the last couple of months with exertion, history of coronary artery disease with prior stent, also prior [place], presented for further evaluation and outpatient cardiac cath by Dr. Yoder. The patient was found to have an ejection fraction of 60% left main disease, distal 90% proximally, the ostial 80%, mid-distal LAD 70, the circ was 80%. We were consulted to evaluate for coronary artery bypass grafting to the LAD and the OM. Pt was taken immediately to OR 04/15 PAST MEDICAL HISTORY: Coronary artery disease, Paroxysmal atrial fibrillation ( xarelto) , Hyperlipidemia, Hypertension, Intraventricular conduction defect , Trace mitral regurgitation, Trace aortic insufficiency, Trace tricuspid insufficiency, Morbid obesity with BMI of 56, Benign prostatic hypertrophy, Chronic anemia, Sleep apnea, History of sinus bradycardia, ablation for the atrial flutter. surgery: 04/15 Emergent CABG x 2, BULLOCK to LAD - good, SVG to OM- good, EVH (R) sternal plating crystalloid 2500cc, EBL 1500cc, cell saver 750cc Pump time 45min extubated after surgery 04/16 still remains on 10L simple mask needs aggressive pulm toileting started on Bumex gtt with albumin / q6hr BMP s/p NA Bicarb , calcium for elevated K+ HX of afib / will need to resume xarelto when chest tubes out Creatinine 1.84/ consult Nephro repeat K+ 6/ d50/ insulin and additional NA bicarb given 04/17 K+ 5.6 Bumex gtt reduced 0.25mg/ hr non-oliguric / renal US noted Bilateral echogenic kidneys consistent with medical renal disease. Asymmetrical atrophic appearing left kidney. No evidence of obstructive uropathy. 2.4 cm cyst in the mid right kidney. wean 02 as tolerated 04/18 weaned to 4 liters, non-oliguric discussed with Dr Loyd / mindy Bumex gtt transfuse one unit PRBC leave [place] cath in today / for strict I&O remains in afib rate controlled/ on xarelto Objective: GENERAL: A&O x 3 SKIN: Warm and dry.weak sleepy / prevena to chest HEAD: Normocephalic. EYES: No scleral icterus. No injection or drainage. NECK: Supple, trachea midline. No JVD or lymphadenopathy. CARDIOVASCULAR: irregular rate and rhythm without murmurs, gallops, or rubs. general edema RESPIRATORY: crackles in bases Breath sounds equal bilaterally. No accessory muscle use. GASTROINTESTINAL: Abdomen soft, non-tender, nondistended. MUSCULOSKELETAL: No cyanosis, or edema. BACK: Nontender without obvious deformity. No CVA tenderness. Vital Signs Date Time Temp Pulse Resp B/P (MAP) Pulse Ox O2 Delivery O2 Flow Rate FiO2 04/18/17 11:45 98.1 83 16 121/51 93 04/18/17 11:29 98.4 68 16 129/52 93 04/18/17 11:00 83 04/18/17 11:00 3 Nasal Cannula 3.00 04/18/17 11:00 98.1 83 16 134/45 (74) 93 04/18/17 09:13 97 Nasal Cannula 4.00 04/18/17 08:00 98.2 72 16 125/35 (65) 99 04/18/17 08:00 95 Nasal Cannula 4.00 04/18/17 08:00 72 04/18/17 07:30 16 04/18/17 03:00 91 04/18/17 03:00 98.6 91 20 121/50 (73) 97 04/18/17 03:00 97 Room Air 4.00 04/17/17 23:00 83 04/17/17 23:00 98.8 83 20 150/57 (88) 97 04/17/17 23:00 97 Nasal Cannula 4.00 04/17/17 19:38 95 Nasal Cannula 4.00 04/17/17 19:00 98.3 93 20 138/42 (74) 98 04/17/17 19:00 93 04/17/17 19:00 97 Room Air 6.00 04/17/17 16:00 97 Simple Mask 8.00 04/17/17 16:00 90 04/17/17 16:00 98.2 92 20 134/44 (74) 96 Arterial Line Labs: Laboratory Tests Test 04/18/17 03:54 White Blood Count 12.2 TH/MM3 (4.0-11.0) Red Blood Count 2.39 MIL/MM3 (4.50-5.90) Hemoglobin 7.8 GM/DL (13.0-17.0) Hematocrit 23.0 % (39.0-51.0) Mean Corpuscular Volume 96.1 FL (80.0-100.0) Mean Corpuscular Hemoglobin 32.8 PG (27.0-34.0) Mean Corpuscular Hemoglobin Concent 34.1 % (32.0-36.0) Red Cell Distribution Width 13.5 % (11.6-17.2) Platelet Count 95 TH/MM3 (150-450) Mean Platelet Volume 8.4 FL (7.0-11.0) Blood Urea Nitrogen 78 MG/DL (7-18) Creatinine 4.22 MG/DL (0.60-1.30) Random Glucose 119 MG/DL (74-106) Calcium Level 7.9 MG/DL (8.5-10.1) Sodium Level 139 MEQ/L (136-145) Potassium Level 5.4 MEQ/L (3.5-5.1) Chloride Level 104 MEQ/L (98-107) Carbon Dioxide Level 26.0 MEQ/L (21.0-32.0) Anion Gap 9 MEQ/L (5-15) Estimat Glomerular Filtration Rate 14 ML/MIN (>89) Result Diagram: 04/18/174 04/18/17353 Telemetry: afib (1) Morbid obesity (2) Chronic kidney disease Plan: worsening indices K+ 5.6 >5.4 nephro following dc bumex gtt discussed with renal (3) Hyperkalemia Plan: improved (4) Unstable angina (5) CAD (coronary artery disease) (6) S/P CABG (coronary artery bypass graft) Plan: on ASA, amiodarone , statin remove chest tube, aggressive PT/OT (7) Respiratory insufficiency Plan: aggressive pulm toileting nebs ezpap acapella (8) Afib Plan: resume amiodarone tikosyn stopped 2/2 renal function Problem Qualifiers (1) Chronic kidney disease: Qualified Codes: N18.3 - Chronic kidney disease, stage 3 (moderate) Avelina Duran Apr 18, 2017 12:55
[2017-04-18] MEDS: FERROUS SULFATE 325 MG (65 MG ELEMENTAL IRON) TAB PO SCH ×2 (13:59→17:43)
--- NOTE | 2017-04-18 14:51 | HHI.NPPN ---
Subjective History of Present Illness The patient is a 81 yo [place] male with PMHx of CAD, A fib, HLD, HTN, BPH, Anemia, SHAHEEN who underwent emergent 2 vessel CABG 04/15/17 after it was determined by cardiac cath yesterday AM that he had severe disease. To the patient's knowledge, he did not have any previous CKD prior to this event. Admitting SCr 1.46 that subsequently worsened today to 2.40 with eGFR of 26. He is non- oliguric at the present and is awake and alert. Denies any recent illness, no vomiting, no diarrhea, and no NSAID use at home. Interval History Patient sitting in a chair no verbal complaints. Indicating he feels he is improving. and daughter by bedside. Objective Data Data 04/18/17 04/19/17 19:00 07:00 Intake Total 10 ml Balance 10 ml Blood Product IV Normal Saline Flush 10 ml Vital Signs Date Time Temp Pulse Resp B/P (MAP) Pulse Ox O2 Delivery O2 Flow Rate FiO2 04/18/17 11:45 98.1 83 16 121/51 93 04/18/17 11:29 98.4 68 16 129/52 93 04/18/17 11:00 83 04/18/17 11:00 3 Nasal Cannula 3.00 04/18/17 11:00 98.1 83 16 134/45 (74) 93 04/18/17 09:13 97 Nasal Cannula 4.00 04/18/17 08:00 98.2 72 16 125/35 (65) 99 04/18/17 08:00 95 Nasal Cannula 4.00 04/18/17 08:00 72 04/18/17 07:30 16 04/18/17 03:00 91 04/18/17 03:00 98.6 91 20 121/50 (73) 97 04/18/17 03:00 97 Room Air 4.00 04/17/17 23:00 83 04/17/17 23:00 98.8 83 20 150/57 (88) 97 04/17/17 23:00 97 Nasal Cannula 4.00 04/17/17 19:38 95 Nasal Cannula 4.00 04/17/17 19:00 98.3 93 20 138/42 (74) 98 04/17/17 19:00 93 04/17/17 19:00 97 Room Air 6.00 04/17/17 16:00 97 Simple Mask 8.00 04/17/17 16:00 90 04/17/17 16:00 98.2 92 20 134/44 (74) 96 Arterial Line -: 04/18/17 0354 04/18/17 0354 Tubes & Lines: [place] Physical Exam General Appearance: No Acute Distress, Comfortable, Obese Eyes Eye Exam: Sclera White Pulmonary Resp Exam: Clear Bilaterally, Breath Sounds Equal, No Distress, Decreased Bases Cardiology CV Exam: Regular, Normal Sinus Rhythm, Good Perfusion Gastrointestinal/Abdomen GI Exam: Soft, Non-Tender Integumentary Skin Exam: Clear, Warm, Normal Turgor Extremeties Extremities Exam: Trace Edema Neurologic Neuro Exam: Alert, Awake Assessment/Plan Discussed Condition With: Patient, Spouse, Daughter Problem List: (1) Acute renal failure (ARF) ICD Codes: N17.9 - Acute kidney failure, unspecified Status: Acute Plan: The patient sustained 2 major insults to the kidney with exposure to contrast as well as his CABG. Underlying CKD as his admitting SCr was 1.4. Patient's creatinine level was noted to have been 1.3 April 08, 2017 with an estimated GFR of 53. Renal ultrasound findings consistent with same with a unilateral atrophic kidney most likely related to renovascular disease. Other kidney echogenic also. Patient's overall condition appears to be improving. Potassium level remaining mildly elevated and acid base status appears to be stable. Urine output has also improved. His creatinine level however continues to deteriorate. No immediate indication however to initiate dialysis as discussed with the family. No uremic symptoms. Acid base status stable. Hopefully the patient's creatinine will plateau slowly improve prior to need to initiate dialysis but as discussed with the family cannot guarantee same. Agree with discontinuing bumetanide drip at this time. Continue to monitor renal indices closely. Medications should be adjusted for the patient's renal decline. (2) CKD (chronic kidney disease) stage 3, GFR 30-59 ml/min ICD Codes: N18.3 - Chronic kidney disease, stage 3 (moderate) Status: Chronic Plan: As suggested by renal ultrasound. 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 Regardless I left kidney is not salvageable as discussed with patient and his . Pre-existing CKD however did render the patient more susceptible to development of acute kidney injury as discussed with them despite fairly good renal reserve prior.. (4) Hyperkalemia ICD Codes: E87.5 - Hyperkalemia Plan: Continue to monitor potassium level. If the patient's hyperkalemia worsen significantly we may have to consider renal replacement therapy as discussed with the patient and his . (5) CAD (coronary artery disease) ICD Codes: I25.10 - Atherosclerotic heart disease of [place] coronary artery without angina pectoris (6) S/P CABG (coronary artery bypass graft) ICD Codes: Z95.1 - Presence of aortocoronary bypass graft Status: Acute Paul Loyd MD Apr 18, 2017 14:50
[2017-04-18] MEDS: SENNOSIDES 8.6 MG TAB PO SCH (20:36)
[2017-04-18] MEDS: ATORVASTATIN 80 MG TAB PO SCH (20:36)
[2017-04-19] VITALS (11 sets, daily range): BP systolic 151–165; BP diastolic 40–72; PULSE 68–88; RESP 18–22; TEMP 97.6–98.4; O2SAT 92–99
[2017-04-19 05:24] LABS: HEMATOCRIT 30.3 % (39.0-51.0); MEAN CELL VOLUME 95.1 FL (80.0-100.0); MEAN CORPUSCULAR HEMOGLOBIN 31.6 PG (27.0-34.0); MEAN CORPUSCULAR HGB CONC 33.2 % (32.0-36.0); MEAN PLATELET VOLUME 9.3 FL (7.0-11.0); PLATELET COUNT 136 TH/MM3 (150-450); RED BLOOD COUNT 3.18 MIL/MM3 (4.50-5.90); RED CELL DISTRIBUTION WIDTH 14.3 % (11.6-17.2); WHITE BLOOD COUNT 13.3 TH/MM3 (4.0-11.0)
[2017-04-19 05:39] LABS: BICARBONATE 25.3 MEQ/L (21.0-32.0); CREATININE 3.77 MG/DL (0.60-1.30)
[2017-04-19] MEDS: PANTOPRAZOLE SOD 40 MG DELAYED RELEASE TAB PO SCH (05:50)
[2017-04-19] MEDS: INSULIN ASPART SUPPLEMENTAL SCALE SQ SCH ×4 (08:00→21:00)
[2017-04-19] MEDS: MULTIVITAMINS/MINERALS THERAPEUTIC TAB PO SCH (09:30)
[2017-04-19] MEDS: DOCUSATE SODIUM 100 MG CAP PO SCH ×2 (09:30→21:17)
[2017-04-19] MEDS: ASPIRIN 81 MG CHEW TAB PO SCH (09:30)
[2017-04-19] MEDS: POLYETHYLENE GLYCOL 17 GM PKG PO SCH (09:30)
[2017-04-19] MEDS: RIVAROXABAN 15 MG TAB PO SCH (09:31)
[2017-04-19] MEDS: AMIODARONE 200 MG TAB PO SCH ×2 (09:31→21:18)
[2017-04-19] MEDS: METOPROLOL TARTRATE 25 MG TAB PO SCH ×2 (09:31→21:18)
[2017-04-19] MEDS: SODIUM CHLORIDE 0.9% FLUSH 10 ML FLUSH IV FLUSH SCH ×2 (09:32→21:00)
--- NOTE | 2017-04-19 09:47 | PD.CAR.PN ---
CVT Progress Note Subjective/Hospital Course: 81/ m with history of chest tightness off and on for the last couple of months with exertion, history of coronary artery disease with prior stent, also prior SC, presented for further evaluation and outpatient cardiac cath by Dr. Yoder. The patient was found to have an ejection fraction of 60% left main disease, distal 90% proximally, the ostial 80%, mid-distal LAD 70, the circ was 80%. We were consulted to evaluate for coronary artery bypass grafting to the LAD and the OM. Pt was taken immediately to OR 04/15 PAST MEDICAL HISTORY: Coronary artery disease, Paroxysmal atrial fibrillation ( xarelto) , Hyperlipidemia, Hypertension, Intraventricular conduction defect , Trace mitral regurgitation, Trace aortic insufficiency, Trace tricuspid insufficiency, Morbid obesity with BMI of 56, Benign prostatic hypertrophy, Chronic anemia, Sleep apnea, History of sinus bradycardia, ablation for the atrial flutter. surgery: 04/15 Emergent CABG x 2, BULLOCK to LAD - good, SVG to OM- good, EVH (R) sternal plating crystalloid 2500cc, EBL 1500cc, cell saver 750cc Pump time 45min extubated after surgery 04/16 still remains on 10L simple mask needs aggressive pulm toileting started on Bumex gtt with albumin / q6hr BMP s/p NA Bicarb , calcium for elevated K+ HX of afib / will need to resume xarelto when chest tubes out Creatinine 1.84/ consult Nephro repeat K+ 6/ d50/ insulin and additional NA bicarb given 04/17 K+ 5.6 Bumex gtt reduced 0.25mg/ hr non-oliguric / renal US noted Bilateral echogenic kidneys consistent with medical renal disease. Asymmetrical atrophic appearing left kidney. No evidence of obstructive uropathy. 2.4 cm cyst in the mid right kidney. wean 02 as tolerated 04/18 weaned to 4 liters, non-oliguric discussed with Dr Lody / mindy Bumex gtt transfuse one unit PRBC leave berger cath in today / for strict I&O remains in afib rate controlled/ on xarelto 04/19 Doing well Awaiting transfer to [facility] Renal function improving. Appreciate Nephrology input Increase beta eugenia Objective: Vital Signs Date Time Temp Pulse Resp B/P (MAP) Pulse Ox O2 Delivery O2 Flow Rate FiO2 04/19/17 07:00 97.9 80 22 165/52 (89) 96 04/19/17 07:00 96 Nasal Cannula 3.00 04/19/17 07:00 80 04/19/17 03:00 98.4 88 20 154/55 (88) 95 04/19/17 03:00 95 Nasal Cannula 3.00 04/19/17 03:00 75 04/18/17 23:00 95 Nasal Cannula 3.00 04/18/17 23:00 70 04/18/17 23:00 98.8 76 20 154/64 (94) 95 04/18/17 20:40 97 Nasal Cannula 4.00 04/18/17 19:00 70 04/18/17 19:00 97 Nasal Cannula 4.00 04/18/17 19:00 98.2 75 20 152/55 (87) 95 04/18/17 16:00 97.6 71 16 140/51 (80) 94 04/18/17 16:00 72 04/18/17 16:00 97 Nasal Cannula 3.00 04/18/17 15:00 97.6 86 16 129/48 95 04/18/17 15:00 16 04/18/17 14:00 77 16 134/59 04/18/17 13:00 79 16 132/50 04/18/17 12:00 73 16 121/50 94 04/18/17 11:45 98.1 83 16 121/51 93 04/18/17 11:29 98.4 68 16 129/52 93 04/18/17 11:00 83 04/18/17 11:00 3 Nasal Cannula 3.00 04/18/17 11:00 98.1 83 16 134/45 (74) 93 Labs: Laboratory Tests Test 04/19/17 03:27 White Blood Count 13.3 TH/MM3 (4.0-11.0) Red Blood Count 3.18 MIL/MM3 (4.50-5.90) Hemoglobin 10.0 GM/DL (13.0-17.0) Hematocrit 30.3 % (39.0-51.0) Mean Corpuscular Volume 95.1 FL (80.0-100.0) Mean Corpuscular Hemoglobin 31.6 PG (27.0-34.0) Mean Corpuscular Hemoglobin Concent 33.2 % (32.0-36.0) Red Cell Distribution Width 14.3 % (11.6-17.2) Platelet Count 136 TH/MM3 (150-450) Mean Platelet Volume 9.3 FL (7.0-11.0) Hematology Comments Blood Urea Nitrogen 90 MG/DL (7-18) Creatinine 3.77 MG/DL (0.60-1.30) Random Glucose 107 MG/DL (74-106) Calcium Level 8.0 MG/DL (8.5-10.1) Sodium Level 139 MEQ/L (136-145) Potassium Level 4.9 MEQ/L (3.5-5.1) Chloride Level 102 MEQ/L (98-107) Carbon Dioxide Level 25.3 MEQ/L (21.0-32.0) Anion Gap 12 MEQ/L (5-15) Estimat Glomerular Filtration Rate 16 ML/MIN (>89) Result Diagram: 04/19/1732604/19/17326 (1) Morbid obesity (2) Chronic kidney disease Plan: worsening indices K+ 5.6 >5.4 nephro following dc bumex gtt discussed with renal (3) Hyperkalemia Plan: improved (4) Unstable angina (5) CAD (coronary artery disease) (6) S/P CABG (coronary artery bypass graft) Plan: on ASA, amiodarone , statin remove chest tube, aggressive PT/OT (7) Respiratory insufficiency Plan: aggressive pulm toileting nebs ezpap acapella (8) Afib Plan: resume amiodarone tikosyn stopped 2/2 renal function Problem Qualifiers (1) Chronic kidney disease: Qualified Codes: N18.3 - Chronic kidney disease, stage 3 (moderate) Valorie Palafox MD Apr 19, 2017 09:47
[2017-04-19] MEDS ORDERED: METOPROLOL TARTRATE 25 MG TAB PO ONE (11:30)
--- NOTE | 2017-04-19 12:18 | HHI.NPPN ---
Subjective History of Present Illness The patient is a 81 yo [place] male with PMHx of CAD, A fib, HLD, HTN, BPH, Anemia, SHAHEEN who underwent emergent 2 vessel CABG 04/15/17 after it was determined by cardiac cath yesterday AM that he had severe disease. To the patient's knowledge, he did not have any previous CKD prior to this event. Admitting SCr 1.46 that subsequently worsened today to 2.40 with eGFR of 26. He is non- oliguric at the present and is awake and alert. Denies any recent illness, no vomiting, no diarrhea, and no NSAID use at home. Interval History Pt sitting up in chair. Ambulating more Feeling stronger Appetite still marginal. (Urvashi Lee) Review of Systems General Constitutional: Fatigue (Urvashi Lee) Objective Data Data Vital Signs Date Time Temp Pulse Resp B/P (MAP) Pulse Ox O2 Delivery O2 Flow Rate FiO2 04/19/17 11:00 92 Nasal Cannula 3.00 04/19/17 11:00 98.0 78 22 159/40 (79) 92 04/19/17 11:00 78 04/19/17 07:00 97.9 80 22 165/52 (89) 96 04/19/17 07:00 96 Nasal Cannula 3.00 04/19/17 07:00 80 04/19/17 03:00 98.4 88 20 154/55 (88) 95 04/19/17 03:00 95 Nasal Cannula 3.00 04/19/17 03:00 75 04/18/17 23:00 95 Nasal Cannula 3.00 04/18/17 23:00 70 04/18/17 23:00 98.8 76 20 154/64 (94) 95 04/18/17 20:40 97 Nasal Cannula 4.00 04/18/17 19:00 70 04/18/17 19:00 97 Nasal Cannula 4.00 04/18/17 19:00 98.2 75 20 152/55 (87) 95 04/18/17 16:00 97.6 71 16 140/51 (80) 94 04/18/17 16:00 72 04/18/17 16:00 97 Nasal Cannula 3.00 04/18/17 15:00 97.6 86 16 129/48 95 04/18/17 15:00 16 04/18/17 14:00 77 16 134/59 04/18/17 13:00 79 16 132/50 (Urvashi Lee) -: 04/19/17 0327 04/19/17 0327 Imaging Last Impressions Chest X-Ray 04/18/17 0600 Signed Impressions: Service Date/Time: Tuesday, April 18, 2017 05:35 - CONCLUSION: Slightly worse bilateral consolidation. Left chest tube out. No pneumothorax. Jones Nicolas MD Renal Ultrasound 04/17/17 0000 Signed Impressions: Service Date/Time: April 09:59 - CONCLUSION: 1. Bilateral echogenic kidneys consistent with medical renal disease. 2. Asymmetrical atrophic appearing left kidney. 3. No evidence of obstructive uropathy. 4. 2.4 cm cyst in the mid right kidney. Christopher Dunn MD Lower Extremity Ultrasound 04/15/17 0000 Signed Impressions: Service Date/Time: Saturday, April 15, 2017 10:00 - CONCLUSION: Venous mapping as detailed above. Jules Carpio Jr., MD Carotid Artery Ultrasound 04/15/17 0000 Signed Impressions: Service Date/Time: Saturday, April 15, 2017 10:23 - CONCLUSION: 1. Mild scattered plaque. No hemodynamically significant stenosis involving either carotid artery. 2. Antegrade flow involving both vertebral arteries. Jules Carpio Jr., MD Tubes & Lines: [place] Medication Review Current Medications Medications (Trade) Dose Ordered Sig/[place] Route Start Time Stop Time Status Last Admin (Percocet 5-325 Mg) 1 tab Q4H PRN PO 04/15/17 08:30 04/18/17 13:59 (NS Flush) 2 ml BID IV FLUSH 04/15/17 21:00 04/19/17 09:32 (NS Flush) 2 ml UNSCH PRN IV FLUSH 04/15/17 17:00 Albumin Human 250 ml @ 250 mls/hr UNSCH PRN IV 04/15/17 17:00 04/16/17 09:50 (Aspirin Chew) 81 mg DAILY PO 04/16/17 09:00 04/19/17 09:30 (Protonix) 40 mg DAILY@06 PO 04/16/17 06:00 04/19/17 05:50 (Tylenol) 650 mg Q4H PRN PO 04/15/17 17:00 (Tylenol Supp) 650 mg Q4H PRN RECTAL 04/15/17 17:00 (Zofran Inj) 4 mg Q6H PRN IV PUSH 04/15/17 17:00 04/16/17 05:07 (Duoneb Neb) 1 ampule Q2HR NEB PRN NEB 04/15/17 17:00 04/17/17 01:58 (Colace) 100 mg BID PO 04/16/17 21:00 04/19/17 09:30 (Theragran M Tab) 1 tab DAILY PO 04/17/17 09:00 04/19/17 09:30 (Miralax) 17 gm DAILY PO 04/17/17 09:00 04/19/17 09:30 (Senokot) 8.6 mg HS PO 04/16/17 21:00 04/18/17 20:36 (Fleets Enema (Adult)) 118 ml UNSCH PRN RECTAL 04/16/17 09:15 (D50w (Vial) Inj) 50 ml UNSCH PRN IV PUSH 04/16/17 09:15 (Glucagon Inj) 1 mg UNSCH PRN OTHER 04/16/17 09:15 (NovoLOG SUPPLEMENTAL SCALE) 1 ACHS SQ 04/18/17 12:00 04/18/17 17:43 (Lipitor) 80 mg HS PO 04/17/17 21:00 04/18/17 20:36 (Xarelto) 15 mg DAILY PO 04/18/17 09:00 04/19/17 09:31 (Drisdol) 50,000 units Q7D PO 04/17/17 17:00 04/17/17 18:15 (Ferrous Sulfate) 325 mg BID@12,17 PO 04/18/17 12:00 04/18/17 17:43 (Cordarone) 200 mg Q12HR PO 04/18/17 21:00 04/19/17 09:31 (Lopressor) 25 mg Q12HR PO 04/19/17 21:00 (Urvashi Lee) Physical Exam General Appearance: No Acute Distress, Comfortable, Obese (Urvashi Lee) Eyes Eye Exam: Sclera White (Urvashi Lee) Pulmonary Resp Exam: Clear Bilaterally, Breath Sounds Equal, No Distress, Decreased Bases (Urvashi Lee) Cardiology CV Exam: Regular, Normal Sinus Rhythm, Good Perfusion (Urvashi Lee) Gastrointestinal/Abdomen GI Exam: Soft, Non-Tender (Urvashi Lee) Integumentary Skin Exam: Clear, Warm, Normal Turgor (Urvashi Lee) Extremeties Extremities Exam: Trace Edema (Urvashi Lee) Neurologic Neuro Exam: Alert, Awake (Urvashi Lee) Assessment/Plan Discussed Condition With: Patient, Spouse, Daughter Problem List: (1) Acute renal failure (ARF) ICD Codes: N17.9 - Acute kidney failure, unspecified Status: Acute Plan: The patient sustained 2 major insults to the kidney with exposure to contrast as well as his CABG. Underlying CKD as his admitting SCr was 1.4. Patient's creatinine level was noted to have been 1.3 April 08, 2017 with an estimated GFR of 53. Renal ultrasound findings consistent with same with a unilateral atrophic kidney most likely related to renovascular disease. Other kidney echogenic also. Patient's overall condition appears to be improving. SCr improved today and is auto-diuresing s/p discontinuation of Bumex drip. Hopefully renal functions will continue to improve. Continue to follow low potassium diet for the present. Level normal today. Medications should be adjusted for the patient's renal decline. (2) CKD (chronic kidney disease) stage 3, GFR 30-59 ml/min ICD Codes: N18.3 - Chronic kidney disease, stage 3 (moderate) Status: Chronic Plan: As suggested by renal ultrasound. 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 Regardless I left kidney is not salvageable as discussed with patient and his . Pre-existing CKD however did render the patient more susceptible to development of acute kidney injury as discussed with them despite fairly good renal reserve prior.. (4) Hyperkalemia ICD Codes: E87.5 - Hyperkalemia Plan: Improving Continue with low K+ diet (5) CAD (coronary artery disease) ICD Codes: I25.10 - Atherosclerotic heart disease of [place] coronary artery without angina pectoris (6) S/P CABG (coronary artery bypass graft) ICD Codes: Z95.1 - Presence of aortocoronary bypass graft Status: Acute (Urvashi Lee) Plan The exam, history, and the medical decision-making described in the above note were completed with the assistance of the PA-C. I reviewed and agree with the findings presented. (Paul Loyd MD) Urvashi Lee Apr 19, 2017 12:18 Paul Loyd MD Apr 20, 2017 12:53
[2017-04-19] MEDS: FERROUS SULFATE 325 MG (65 MG ELEMENTAL IRON) TAB PO SCH ×2 (12:30→17:48)
[2017-04-19] MEDS: SENNOSIDES 8.6 MG TAB PO SCH (21:17)
[2017-04-19] MEDS: ATORVASTATIN 80 MG TAB PO SCH (21:18)
[2017-04-20] VITALS (26 sets, daily range): BP systolic 136–177; BP diastolic 60–106; PULSE 60–80; RESP 18–24; TEMP 97.4–98.1; O2SAT 96–97
[2017-04-20] MEDS: oxyCODONE/ACETAMINOPHEN 5 MG/325 MG TAB PO PRN ×3 (04:26→16:34)
[2017-04-20 05:58] LABS: HEMATOCRIT 28.9 % (39.0-51.0); HEMOGLOBIN 9.9 GM/DL (13.0-17.0); MEAN CELL VOLUME 94.6 FL (80.0-100.0); MEAN CORPUSCULAR HEMOGLOBIN 32.3 PG (27.0-34.0); MEAN CORPUSCULAR HGB CONC 34.1 % (32.0-36.0); MEAN PLATELET VOLUME 7.8 FL (7.0-11.0); PLATELET COUNT 173 TH/MM3 (150-450); RED BLOOD COUNT 3.06 MIL/MM3 (4.50-5.90); RED CELL DISTRIBUTION WIDTH 13.8 % (11.6-17.2); WHITE BLOOD COUNT 10.2 TH/MM3 (4.0-11.0)
[2017-04-20] MEDS: PANTOPRAZOLE SOD 40 MG DELAYED RELEASE TAB PO SCH (06:04)
[2017-04-20 06:23] LABS: ALBUMIN 3.2 GM/DL (3.4-5.0); BICARBONATE 28.3 MEQ/L (21.0-32.0); CALCIUM 8.3 MG/DL (8.5-10.1); CREATININE 2.5 MG/DL (0.60-1.30); PHOSPHORUS 3.6 MG/DL (2.5-4.9)
[2017-04-20] MEDS: MULTIVITAMINS/MINERALS THERAPEUTIC TAB PO SCH (07:45)
[2017-04-20] MEDS: AMIODARONE 200 MG TAB PO SCH ×2 (07:45→21:36)
[2017-04-20] MEDS: DOCUSATE SODIUM 100 MG CAP PO SCH ×2 (07:45→21:36)
[2017-04-20] MEDS: METOPROLOL TARTRATE 25 MG TAB PO SCH ×2 (07:45→21:36)
[2017-04-20] MEDS: RIVAROXABAN 15 MG TAB PO SCH (07:46)
[2017-04-20] MEDS: POLYETHYLENE GLYCOL 17 GM PKG PO SCH (07:46)
[2017-04-20] MEDS: SODIUM CHLORIDE 0.9% FLUSH 10 ML FLUSH IV FLUSH SCH ×2 (07:46→21:00)
[2017-04-20] MEDS: ASPIRIN 81 MG CHEW TAB PO SCH (07:46)
[2017-04-20 07:51] LABS: AUTOMATED NEUTROPHIL # 7.8 TH/MM3 (1.8-7.7); BASOPHIL % 0.4 % (0.0-2.0); EOSINOPHIL # 0.2 TH/MM3 (0-0.4); EOSINOPHIL % 1.7 % (0.0-4.0); HEMATOCRIT 29.4 % (39.0-51.0); HEMOGLOBIN 10.1 GM/DL (13.0-17.0); LYMPH % 14.1 % (9.0-44.0); LYMPHOCYTE # 1.5 TH/MM3 (1.0-4.8); MEAN CELL VOLUME 94.9 FL (80.0-100.0); MEAN CORPUSCULAR HEMOGLOBIN 32.6 PG (27.0-34.0); MEAN CORPUSCULAR HGB CONC 34.4 % (32.0-36.0); MEAN PLATELET VOLUME 7.8 FL (7.0-11.0); MONO % 12.2 % (0.0-8.0); MONOCYTE # 1.3 TH/MM3 (0-0.9); NEUT % 71.6 % (16.0-70.0); PLATELET COUNT 186 TH/MM3 (150-450); RED CELL DISTRIBUTION WIDTH 13.8 % (11.6-17.2); WHITE BLOOD COUNT 10.9 TH/MM3 (4.0-11.0)
[2017-04-20] MEDS: INSULIN ASPART SUPPLEMENTAL SCALE SQ SCH ×4 (08:00→21:00)
[2017-04-20] MEDS ORDERED: MORPHINE SULFATE 2 MG/ML INJ IV PRN (08:15)
[2017-04-20] MEDS: MORPHINE SULFATE 4 MG/ML INJ IV PRN ×2 (08:41→16:53)
--- NOTE | 2017-04-20 10:19 | PD.CAR.PN ---
CVT Progress Note Subjective/Hospital Course: 81/ m with history of chest tightness off and on for the last couple of months with exertion, history of coronary artery disease with prior stent, also prior NM, presented for further evaluation and outpatient cardiac cath by Dr. Yoder. The patient was found to have an ejection fraction of 60% left main disease, distal 90% proximally, the ostial 80%, mid-distal LAD 70, the circ was 80%. We were consulted to evaluate for coronary artery bypass grafting to the LAD and the OM. Pt was taken immediately to OR 04/15 PAST MEDICAL HISTORY: Coronary artery disease, Paroxysmal atrial fibrillation ( xarelto) , Hyperlipidemia, Hypertension, Intraventricular conduction defect , Trace mitral regurgitation, Trace aortic insufficiency, Trace tricuspid insufficiency, Morbid obesity with BMI of 56, Benign prostatic hypertrophy, Chronic anemia, Sleep apnea, History of sinus bradycardia, ablation for the atrial flutter. surgery: 04/15 Emergent CABG x 2, BULLOCK to LAD - good, SVG to OM- good, EVH (R) sternal plating crystalloid 2500cc, EBL 1500cc, cell saver 750cc Pump time 45min extubated after surgery 04/16 still remains on 10L simple mask needs aggressive pulm toileting started on Bumex gtt with albumin / q6hr BMP s/p NA Bicarb , calcium for elevated K+ HX of afib / will need to resume xarelto when chest tubes out Creatinine 1.84/ consult Nephro repeat K+ 6/ d50/ insulin and additional NA bicarb given 04/17 K+ 5.6 Bumex gtt reduced 0.25mg/ hr non-oliguric / renal US noted Bilateral echogenic kidneys consistent with medical renal disease. Asymmetrical atrophic appearing left kidney. No evidence of obstructive uropathy. 2.4 cm cyst in the mid right kidney. wean 02 as tolerated 04/18 weaned to 4 liters, non-oliguric discussed with Dr Loyd / mindy Bumex gtt transfuse one unit PRBC leave berger cath in today / for strict I&O remains in afib rate controlled/ on xarelto 04/19 Doing well Awaiting transfer to [facility] Renal function improving. Appreciate Nephrology input Increase beta eugenia 04/20 C/o severe groin/bladder pain. Will order B&O suppository Hematuria worsening. CBC stable. Consult Urology. Hold Xeralto PT Objective: Vital Signs Date Time Temp Pulse Resp B/P (MAP) Pulse Ox O2 Delivery O2 Flow Rate FiO2 04/20/17 08:54 96 Nasal Cannula 3.00 04/20/17 08:26 22 04/20/17 06:00 74 04/20/17 05:26 18 04/20/17 05:00 70 04/20/17 04:00 74 04/20/17 03:00 63 04/20/17 03:00 98.1 63 18 157/66 (96) 96 04/20/17 03:00 96 Nasal Cannula 3.00 04/20/17 02:00 70 04/20/17 01:00 68 04/20/17 00:00 64 04/19/17 23:00 98 Nasal Cannula 3.00 04/19/17 23:00 71 04/19/17 23:00 98.1 71 18 158/67 (97) 98 04/19/17 22:00 68 04/19/17 21:00 70 04/19/17 20:00 72 04/19/17 19:00 97.8 75 20 155/68 (97) 99 04/19/17 19:00 99 Nasal Cannula 3.00 04/19/17 19:00 75 04/19/17 15:45 97 Nasal Cannula 3.00 04/19/17 15:45 97.6 70 22 151/72 (98) 97 04/19/17 15:00 97.6 68 22 151/72 (98) 97 04/19/17 15:00 68 04/19/17 15:00 97 Nasal Cannula 3.00 04/19/17 11:00 92 Nasal Cannula 3.00 04/19/17 11:00 98.0 78 22 159/40 (79) 92 04/19/17 11:00 78 Labs: Laboratory Tests Test 04/20/17 05:27 04/20/17 07:36 White Blood Count 10.2 TH/MM3 (4.0-11.0) 10.9 TH/MM3 (4.0-11.0) Red Blood Count 3.06 MIL/MM3 (4.50-5.90) 3.10 MIL/MM3 (4.50-5.90) Hemoglobin 9.9 GM/DL (13.0-17.0) 10.1 GM/DL (13.0-17.0) Hematocrit 28.9 % (39.0-51.0) 29.4 % (39.0-51.0) Mean Corpuscular Volume 94.6 FL (80.0-100.0) 94.9 FL (80.0-100.0) Mean Corpuscular Hemoglobin 32.3 PG (27.0-34.0) 32.6 PG (27.0-34.0) Mean Corpuscular Hemoglobin Concent 34.1 % (32.0-36.0) 34.4 % (32.0-36.0) Red Cell Distribution Width 13.8 % (11.6-17.2) 13.8 % (11.6-17.2) Platelet Count 173 TH/MM3 (150-450) 186 TH/MM3 (150-450) Mean Platelet Volume 7.8 FL (7.0-11.0) 7.8 FL (7.0-11.0) Blood Urea Nitrogen 86 MG/DL (7-18) Creatinine 2.50 MG/DL (0.60-1.30) Random Glucose 122 MG/DL (74-106) Albumin 3.2 GM/DL (3.4-5.0) Calcium Level 8.3 MG/DL (8.5-10.1) Phosphorus Level 3.6 MG/DL (2.5-4.9) Sodium Level 141 MEQ/L (136-145) Potassium Level 4.6 MEQ/L (3.5-5.1) Chloride Level 104 MEQ/L (98-107) Carbon Dioxide Level 28.3 MEQ/L (21.0-32.0) Anion Gap 9 MEQ/L (5-15) Estimat Glomerular Filtration Rate 25 ML/MIN (>89) Neutrophils (%) (Auto) 71.6 % (16.0-70.0) Lymphocytes (%) (Auto) 14.1 % (9.0-44.0) Monocytes (%) (Auto) 12.2 % (0.0-8.0) Eosinophils (%) (Auto) 1.7 % (0.0-4.0) Basophils (%) (Auto) 0.4 % (0.0-2.0) Neutrophils # (Auto) 7.8 TH/MM3 (1.8-7.7) Lymphocytes # (Auto) 1.5 TH/MM3 (1.0-4.8) Monocytes # (Auto) 1.3 TH/MM3 (0-0.9) Eosinophils # (Auto) 0.2 TH/MM3 (0-0.4) Basophils # (Auto) 0.0 TH/MM3 (0-0.2) CBC Comment DIFF FINAL Differential Comment Result Diagram: 04/20/17 0736 04/20/17 0527 (1) Morbid obesity (2) Chronic kidney disease Plan: worsening indices K+ 5.6 >5.4 nephro following dc bumex gtt discussed with renal (3) Hyperkalemia Plan: improved (4) Unstable angina (5) CAD (coronary artery disease) (6) S/P CABG (coronary artery bypass graft) Plan: on ASA, amiodarone , statin remove chest tube, aggressive PT/OT (7) Respiratory insufficiency Plan: aggressive pulm toileting nebs ezpap acapella (8) Afib Plan: resume amiodarone tikosyn stopped 2/2 renal function Problem Qualifiers (1) Chronic kidney disease: Qualified Codes: N18.3 - Chronic kidney disease, stage 3 (moderate) Valorie Palafox MD Apr 20, 2017 10:19
[2017-04-20] MEDS ORDERED: BELLADONNA ALKALOIDS/OPIUM 60 MG SUPP RECTAL ONE (10:30)
[2017-04-20] MEDS: FERROUS SULFATE 325 MG (65 MG ELEMENTAL IRON) TAB PO SCH ×2 (12:02→17:00)
[2017-04-20] MEDS: BELLADONNA ALKALOIDS/OPIUM 60 MG SUPP RECTAL SCH ×2 (14:00→17:16)
--- NOTE | 2017-04-20 15:26 | HHI.NPPN ---
Subjective History of Present Illness The patient is a 81 yo [place] male with PMHx of CAD, A fib, HLD, HTN, BPH, Anemia, SHAHEEN who underwent emergent 2 vessel CABG 04/15/17 after it was determined by cardiac cath yesterday AM that he had severe disease. To the patient's knowledge, he did not have any previous CKD prior to this event. Admitting SCr 1.46 that subsequently worsened today to 2.40 with eGFR of 26. He is non- oliguric at the present and is awake and alert. Denies any recent illness, no vomiting, no diarrhea, and no NSAID use at home. Interval History Patient apparently has developed hematuria. indicated that the patient may have pulled on his Zur[place] catheter prior to development. Otherwise no verbal complaints except he did not eat his breakfast or lunch today secondary to bladder spasms.. Review of Systems General Constitutional: Fatigue Objective Data Data Vital Signs Date Time Temp Pulse Resp B/P (MAP) Pulse Ox O2 Delivery O2 Flow Rate FiO2 04/20/17 14:00 69 04/20/17 13:00 71 04/20/17 12:00 60 04/20/17 11:00 96 Nasal Cannula 3.00 04/20/17 11:00 98.0 73 20 136/60 (85) 96 04/20/17 11:00 76 04/20/17 10:00 67 04/20/17 09:00 69 04/20/17 08:54 96 Nasal Cannula 3.00 04/20/17 08:26 22 04/20/17 08:00 97.7 76 22 152/106 (121) 97 04/20/17 08:00 97 Nasal Cannula 3.00 04/20/17 08:00 63 04/20/17 07:00 76 04/20/17 06:00 74 04/20/17 05:26 18 04/20/17 05:00 70 04/20/17 04:00 74 04/20/17 03:00 63 04/20/17 03:00 98.1 63 18 157/66 (96) 96 04/20/17 03:00 96 Nasal Cannula 3.00 04/20/17 02:00 70 04/20/17 01:00 68 04/20/17 00:00 64 04/19/17 23:00 98 Nasal Cannula 3.00 04/19/17 23:00 71 04/19/17 23:00 98.1 71 18 158/67 (97) 98 04/19/17 22:00 68 04/19/17 21:00 70 04/19/17 20:00 72 04/19/17 19:00 97.8 75 20 155/68 (97) 99 04/19/17 19:00 99 Nasal Cannula 3.00 04/19/17 19:00 75 04/19/17 15:45 97 Nasal Cannula 3.00 04/19/17 15:45 97.6 70 22 151/72 (98) 97 -: 04/20/17 0736 04/20/17 0527 Tubes & Lines: [place] Physical Exam General Appearance: No Acute Distress, Comfortable, Obese Eyes Eye Exam: Sclera White Throat Throat Remarks Mucous membranes dry. Pulmonary Resp Exam: Clear Bilaterally, Breath Sounds Equal, No Distress, Decreased Bases Cardiology CV Exam: Regular, Normal Sinus Rhythm, Good Perfusion Gastrointestinal/Abdomen GI Exam: Soft, Non-Tender Integumentary Skin Exam: Clear, Warm, Normal Turgor Extremeties Extremities Exam: Trace Edema Neurologic Neuro Exam: Alert, Awake Assessment/Plan Discussed Condition With: Patient, Spouse, Daughter Problem List: (1) Acute renal failure (ARF) ICD Codes: N17.9 - Acute kidney failure, unspecified Status: Acute Plan: The patient's renal function continues to improve nicely. I'm concerned that he may develop dehydration however because he appears to be be in the polyuric phase of renal recovery and his fluid intake is diminished today secondary to his bladder spasms and patient not feeling well. I will start maintenance IV fluids until oral intake reestablished. Also check urine culture. As far as hematuria is concerned I will defer to urology. The patient sustained 2 major insults to the kidney with exposure to contrast as well as his CABG. Underlying CKD as his admitting SCr was 1.4. Patient's creatinine level was noted to have been 1.3 April 08, 2017 with an estimated GFR of 53. Renal ultrasound findings consistent with same with a unilateral atrophic kidney most likely related to renovascular disease. Other kidney echogenic also. Medications should be adjusted for the patient's renal decline. (2) CKD (chronic kidney disease) stage 3, GFR 30-59 ml/min ICD Codes: N18.3 - Chronic kidney disease, stage 3 (moderate) Status: Chronic Plan: As suggested by renal ultrasound. 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 Regardless I left kidney is not salvageable as discussed with patient and his . Pre-existing CKD however did render the patient more susceptible to development of acute kidney injury as discussed with them despite fairly good renal reserve prior.. (4) CAD (coronary artery disease) ICD Codes: I25.10 - Atherosclerotic heart disease of [place] coronary artery without angina pectoris (5) S/P CABG (coronary artery bypass graft) ICD Codes: Z95.1 - Presence of aortocoronary bypass graft Status: Acute (6) Hyperkalemia ICD Codes: E87.5 - Hyperkalemia Status: Resolved Paul Loyd MD Apr 20, 2017 15:26
[2017-04-20] MEDS: SODIUM CHLOR 0.45% 1000 ML INJ 1,000 ML IV SCH (16:29)
[2017-04-20] MEDS ORDERED: cloNIDine HCL 0.1 MG TAB PO PRN (17:30)
--- NOTE | 2017-04-20 18:14 | RADRPT ---
EXAM DATE/TIME: 04/20/2017 17:57 [facility] COMPARISON: No previous studies available for comparison. INDICATIONS : Gross hematuria, post op day 5 CABG,pain groin to lower abdomen. ORAL CONTRAST: No oral contrast ingested. RADIATION DOSE: 16.49 CTDIvol (mGy) ; Patient body habitus MEDICAL HISTORY : Cardiovascular disease. Congestive heart failure. Hypertension.AFib SURGICAL HISTORY : CABG ENCOUNTER: Initial ACUITY: 1 day PAIN SCALE: 10/10 LOCATION: Bilateral groin TECHNIQUE: Volumetric scanning of the abdomen and pelvis was performed. Using automated exposure control and ad justment of the mA and/or kV according to patient size, radiation dose was kept as low as reasonably achievable to obtain optimal diagnostic quality images. DICOM format image data is available electro nically for review and comparison. FINDINGS: Large body habitus with patient extending beyond the [id number] of the scanner. There are small b ilateral pleural effusions measuring up to 2.4 cm in thickness. Subsegmental consolidative infiltrat e is present in the medial right lower lung. The liver, spleen, pancreas, and adrenal glands are intact. There is some layering hyperdensity with in the gallbladder lumen which is probably related to vicarious excretion of the previously administe red contrast. The kidneys are symmetric in size. No evidence of hydronephrosis or calcified gallstones. Both uret ers are normal in dimension without calcified stone. There is a Zurita catheter in place with the bal loon approximately in the region of the prostatic urethra. Urinary bladder margins are smooth and no calcifications within the lumen. There is an air fluid level in the nondependent portion of the uri nary bladder. No evidence of free flowing. No evidence of free air. No dilated loops of small or large bowel. Th e inguinal region is unremarkable. CONCLUSION: 1. [place] catheter balloon appears to be within the prostatic urethra. 2. No calcified renal stones or evidence of hydronephrosis. 3. Small bilateral pleural effusions and subsegmental consolidation medial right lower lung. Jules Walls MD on April 20, 2017 at 18:08 Board Certified Radiologist. This report was verified electronically.
--- NOTE | 2017-04-20 18:41 | PD.CONS ---
HPI Service Urology Consult Requested By Reason for Consult Hematuria, Retention Primary Care Physician [facility] Diagnosis: History of Present Illness 81yo male s/p CABG seen in consultation for urinary retention and hematuria. Patient developed hematuria after his CABG with decreased UOP and increasing lower abdominal pain. Patient reports difficulty in voiding prior to procedure with a slow weak stream, frequency, nocturia. He has not had hematuria in the past. It appears the catheter was initially in the proper position, but was accidently pulled by the patient/ while walking. Recent CT scan shows the catheter to be located within the prostate. Review of Systems ROS Limitations: Clinical Condition Constitutional: DENIES: Fever Endocrine: DENIES: Heat/cold intolerance Eyes: DENIES: Diplopia Ears, nose, mouth, throat: DENIES: Hearing loss Respiratory: DENIES: Cough Cardiovascular: DENIES: Chest pain Gastrointestinal: COMPLAINS OF: Abdominal pain Genitourinary: COMPLAINS OF: Hematuria Musculoskeletal: COMPLAINS OF: Back pain Neurologic: DENIES: Headache Psychiatric: DENIES: Anxiety Except as stated in HPI: all other systems reviewed are Neg Past Family Social History Past Medical History CAD s/p 2 vessel CABG 04/15 Atrial fibrillation HLD HTN BPH Anemia SHAHEEN Morbid Obesity Past Surgical History 2 vessel CABG 04/15/17 Cardiac cath 2004 Cardiac ablation for A fib Appendectomy Reported Medications Reported Meds & Active Scripts Active Dok (Docusate Sodium) 100 Mg Cap 100 Mg PO BID Oxycodone-Acetaminophen 5-325 (Oxycodone HCl/Acetaminophen) 5 Mg-325 Mg Tablet 1 Tab PO Q4H PRN Metoprolol Tartrate 25 Mg Tab 50 Mg PO Q12HR Reported Xarelto (Rivaroxaban) 20 Mg Tab 20 Mg PO DAILY Vitamin D3 (Cholecalciferol) 2,000 Unit Cap 2,000 Units PO DAILY Vitamin C ER (Ascorbic Acid) 500 Mg Sohan 1,000 Mg PO Tylenol (Acetaminophen) 325 Mg Tab 650 Mg PO Q6H Tikosyn (Dofetilide) 250 Mcg Cap 250 Mcg PO BID For Creatinine Clearance 40-60 mL/min Multi-Vitamin Daily (Multiple Vitamin) 1 Tab Tab 1 Tab PO DAILY Chromagen Softgel (Kcrj-O-Xdmsci-B6-B12-Zn) 75-60-1 Mg Capsule 1 Cap PO DAILY Fluocinonide Topical (Fluocinonide) 0.05% Soln 1 Applic TOPICAL DAILY [place]-3 Fish Oil/Vitamin (Fish Oil-Cholecalciferol) 1,000-1,000 Mg Cap 1 Cap PO DAILY Doxazosin (Doxazosin Mesylate) 8 Mg Tab 8 Mg PO DAILY Atorvastatin (Atorvastatin Calcium) 80 Mg Tab 80 Mg PO HS Aspirin EC (Aspirin) 81 Mg Tabdr 81 Mg PO DAILY Amlodipine (Amlodipine Besylate) 2.5 Mg Tab 2.5 Mg PO DAILY Allergies: Coded Allergies: crab (Unverified Allergy, Intermediate, DIARRHEA AND RASH, 04/15/17) bee venom protein (honey bee) (Verified Allergy, Unknown, 04/15/17) spinach (Verified Allergy, Unknown, 04/15/17) Uncoded Allergies: SHELLFISH (Allergy, Unknown, 04/15/17) Family History HTN Stomach CA Social History Denies any current tobacco use No EtOH No illicits Physical Exam Vital Signs Date Time Temp Pulse Resp B/P (MAP) Pulse Ox O2 Delivery O2 Flow Rate FiO2 04/20/17 14:00 69 04/20/17 13:00 71 04/20/17 12:00 60 04/20/17 11:00 96 Nasal Cannula 3.00 04/20/17 11:00 98.0 73 20 136/60 (85) 96 04/20/17 11:00 76 04/20/17 10:00 67 04/20/17 09:00 69 04/20/17 08:54 96 Nasal Cannula 3.00 04/20/17 08:26 22 04/20/17 08:00 97.7 76 22 152/106 (121) 97 04/20/17 08:00 97 Nasal Cannula 3.00 04/20/17 08:00 63 04/20/17 07:00 76 04/20/17 06:00 74 04/20/17 05:26 18 04/20/17 05:00 70 04/20/17 04:00 74 04/20/17 03:00 63 04/20/17 03:00 98.1 63 18 157/66 (96) 96 04/20/17 03:00 96 Nasal Cannula 3.00 04/20/17 02:00 70 04/20/17 01:00 68 04/20/17 00:00 64 04/19/17 23:00 98 Nasal Cannula 3.00 04/19/17 23:00 71 04/19/17 23:00 98.1 71 18 158/67 (97) 98 04/19/17 22:00 68 04/19/17 21:00 70 04/19/17 20:00 72 04/19/17 19:00 97.8 75 20 155/68 (97) 99 04/19/17 19:00 99 Nasal Cannula 3.00 04/19/17 19:00 75 Physical Exam GENERAL: This is a well-nourished, well-developed patient, in no apparent distress. SKIN: No rashes, ecchymoses or lesions. Cool and dry. HEAD: Atraumatic. Normocephalic.. EYES: Pupils equal round and reactive. Extraocular motions intact. . ENT: Nose without bleeding, purulent drainage. Airway patent. NECK: Trachea midline. No JVD or lymphadenopathy. CARDIOVASCULAR: Normal pulse. RESPIRATORY: Nonlabored GASTROINTESTINAL: Abdomen soft, non-tender, nondistended. GENITOURINARY: Berger catheter in place, not draining MUSCULOSKELETAL: Extremities without clubbing, cyanosis, or edema NEUROLOGICAL: Awake and alert. Motor and sensory grossly within normal limits. Normal speech. Lab results reviewed: Yes Laboratory Tests Test 04/20/17 05:27 04/20/17 07:36 White Blood Count 10.2 10.9 Red Blood Count 3.06 3.10 Hemoglobin 9.9 10.1 Hematocrit 28.9 29.4 Mean Corpuscular Volume 94.6 94.9 Mean Corpuscular Hemoglobin 32.3 32.6 Mean Corpuscular Hemoglobin Concent 34.1 34.4 Red Cell Distribution Width 13.8 13.8 Platelet Count 173 186 Mean Platelet Volume 7.8 7.8 Blood Urea Nitrogen 86 Creatinine 2.50 Random Glucose 122 Albumin 3.2 Calcium Level 8.3 Phosphorus Level 3.6 Sodium Level 141 Potassium Level 4.6 Chloride Level 104 Carbon Dioxide Level 28.3 Anion Gap 9 Estimat Glomerular Filtration Rate 25 Neutrophils (%) (Auto) 71.6 Lymphocytes (%) (Auto) 14.1 Monocytes (%) (Auto) 12.2 Eosinophils (%) (Auto) 1.7 Basophils (%) (Auto) 0.4 Neutrophils # (Auto) 7.8 Lymphocytes # (Auto) 1.5 Monocytes # (Auto) 1.3 Eosinophils # (Auto) 0.2 Basophils # (Auto) 0.0 CBC Comment DIFF FINAL Differential Comment Date/Time Source Procedure Growth Status 04/16/17 18:30 Urine Random Urine Urine Culture - Final NO GROWTH IN 48 HOURS. Complete Result Diagram: 04/20/17 0736 04/20/17 0527 Personally reviewed images: Yes Imaging Last Impressions Abdomen/Pelvis CT 04/20/17 0000 Signed Impressions: Service Date/Time: Thursday, April 20, 2017 17:57 - CONCLUSION: 1. Berger catheter balloon appears to be within the prostatic urethra. 2. No calcified renal stones or evidence of hydronephrosis. 3. Small bilateral pleural effusions and subsegmental consolidation medial right lower lung. Jules Walls MD Chest X-Ray 04/18/17 0600 Signed Impressions: Service Date/Time: Tuesday, April 18, 2017 05:35 - CONCLUSION: Slightly worse bilateral consolidation. Left chest tube out. No pneumothorax. Jones Nicolas MD Renal Ultrasound 04/17/17 0000 Signed Impressions: Service Date/Time: April 09:59 - CONCLUSION: 1. Bilateral echogenic kidneys consistent with medical renal disease. 2. Asymmetrical atrophic appearing left kidney. 3. No evidence of obstructive uropathy. 4. 2.4 cm cyst in the mid right kidney. Christopher Dunn MD Lower Extremity Ultrasound 04/15/17 0000 Signed Impressions: Service Date/Time: Saturday, April 15, 2017 10:00 - CONCLUSION: Venous mapping as detailed above. Jules Carpio Jr., MD Carotid Artery Ultrasound 04/15/17 0000 Signed Impressions: Service Date/Time: Saturday, April 15, 2017 10:23 - CONCLUSION: 1. Mild scattered plaque. No hemodynamically significant stenosis involving either carotid artery. 2. Antegrade flow involving both vertebral arteries. Jules Carpio Jr., MD Assessment and Plan Problem List: (1) CKD (chronic kidney disease) stage 3, GFR 30-59 ml/min ICD Code: N18.3 - Chronic kidney disease, stage 3 (moderate) Status: Chronic (2) CAD (coronary artery disease) ICD Code: I25.10 - Atherosclerotic heart disease of [place] coronary artery without angina pectoris Status: Chronic (3) Afib ICD Code: I48.91 - Unspecified atrial fibrillation Status: Chronic (4) S/P CABG (coronary artery bypass graft) ICD Code: Z95.1 - Presence of aortocoronary bypass graft Status: Acute Assessment and Plan -Berger catheter removed at bedside with a new 16Fr berger catheter placed. Significant amount of yellow urine removed once placed in proper position -Maintain berger catheter in place -Expect bleeding around catheter -30cc in balloon -Patient may be discharged with berger catheter in place with follow up in Urology clinic for voiding trial Segun Varma MD Apr 20, 2017 18:41
[2017-04-20] MEDS: ATORVASTATIN 80 MG TAB PO SCH (21:36)
[2017-04-20] MEDS: SENNOSIDES 8.6 MG TAB PO SCH (21:36)
[2017-04-21] VITALS (27 sets, daily range): BP systolic 140–187; BP diastolic 64–80; PULSE 66–84; RESP 17–20; TEMP 97.4–98.8; O2SAT 94–96
[2017-04-21] MEDS: BELLADONNA ALKALOIDS/OPIUM 60 MG SUPP RECTAL SCH ×5 (05:36→23:04)
[2017-04-21] MEDS: PANTOPRAZOLE SOD 40 MG DELAYED RELEASE TAB PO SCH (05:39)
[2017-04-21 06:20] LABS: BICARBONATE 28.5 MEQ/L (21.0-32.0); CALCIUM 8.1 MG/DL (8.5-10.1); CREATININE 1.89 MG/DL (0.60-1.30)
[2017-04-21] MEDS: INSULIN ASPART SUPPLEMENTAL SCALE SQ SCH ×4 (08:00→20:55)
[2017-04-21] MEDS: SODIUM CHLORIDE 0.9% FLUSH 10 ML FLUSH IV FLUSH SCH ×2 (08:35→20:30)
[2017-04-21] MEDS: MULTIVITAMINS/MINERALS THERAPEUTIC TAB PO SCH (08:35)
[2017-04-21] MEDS: DOCUSATE SODIUM 100 MG CAP PO SCH ×2 (08:35→20:29)
[2017-04-21] MEDS: METOPROLOL TARTRATE 25 MG TAB PO SCH ×2 (08:35→20:29)
[2017-04-21] MEDS: AMIODARONE 200 MG TAB PO SCH ×2 (08:35→20:29)
[2017-04-21] MEDS: POLYETHYLENE GLYCOL 17 GM PKG PO SCH (08:35)
[2017-04-21] MEDS: ASPIRIN 81 MG CHEW TAB PO SCH (08:35)
--- NOTE | 2017-04-21 11:06 | RSPPFT ---
DATE OF PROCEDURE: 04/15/17 COMMENTS: Spirometry demonstrates an FEV1 of 1.4 at 61% of predicted, FVC of 1.9 at 66%, FEF 25-75 at 40%. Flow volume loops appear unremarkable. Lung volumes were not completed. IMPRESSION: 1. Mild to moderate obstructive airways disease.
[2017-04-21] MEDS: FERROUS SULFATE 325 MG (65 MG ELEMENTAL IRON) TAB PO SCH ×2 (12:52→17:16)
[2017-04-21] MEDS: oxyCODONE/ACETAMINOPHEN 5 MG/325 MG TAB PO PRN ×2 (14:55→23:05)
[2017-04-21] MEDS: SODIUM CHLOR 0.45% 1000 ML INJ 1,000 ML IV SCH (14:57)
[2017-04-21] MEDS ORDERED: OXYC1TAB63 PO (17:12)
[2017-04-21] MEDS ORDERED: DOCU1CAP39 PO (17:12)
[2017-04-21] MEDS ORDERED: METO25TA3 PO (17:12)
--- NOTE | 2017-04-21 17:21 | HHI.DS ---
Discharge Summary Admission Date Apr 15, 2017 at 08:26 Discharge Date: Apr 21, 2017 Admitting Diagnosis (1) CAD (coronary artery disease) (2) Unstable angina Left main CAD (1) S/P CABG (coronary artery bypass graft) Diagnosis: Secondary ICD Codes: Z95.1 - Presence of aortocoronary bypass graft Status: Acute (2) Acute renal failure (ARF) Diagnosis: Principal ICD Codes: N17.9 - Acute kidney failure, unspecified Status: Acute (3) CKD (chronic kidney disease) stage 3, GFR 30-59 ml/min Diagnosis: Principal ICD Codes: N18.3 - Chronic kidney disease, stage 3 (moderate) Status: Chronic (4) Afib Diagnosis: Principal ICD Codes: I48.91 - Unspecified atrial fibrillation Status: Chronic (5) CAD (coronary artery disease) Diagnosis: Principal ICD Codes: I25.10 - Atherosclerotic heart disease of [place] coronary artery without angina pectoris Status: Chronic (6) Morbid obesity Diagnosis: Principal ICD Codes: E66.01 - Morbid (severe) obesity due to excess calories Status: Chronic Procedures 04/15 Emergent CABG x 2 BULLOCK to LAD - good SVG to OM- good EVH (R) CBC/BMP: 04/20/17 0736 04/21/17 0452 Significant Findings Laboratory Tests Test 04/19/17 03:27 04/20/17 05:27 04/20/17 07:36 04/21/17 04:52 White Blood Count 13.3 TH/MM3 (4.0-11.0) Red Blood Count 3.18 MIL/MM3 (4.50-5.90) 3.06 MIL/MM3 (4.50-5.90) 3.10 MIL/MM3 (4.50-5.90) Hemoglobin 10.0 GM/DL (13.0-17.0) 9.9 GM/DL (13.0-17.0) 10.1 GM/DL (13.0-17.0) Hematocrit 30.3 % (39.0-51.0) 28.9 % (39.0-51.0) 29.4 % (39.0-51.0) Platelet Count 136 TH/MM3 (150-450) Blood Urea Nitrogen 90 MG/DL (7-18) 86 MG/DL (7-18) 78 MG/DL (7-18) Creatinine 3.77 MG/DL (0.60-1.30) 2.50 MG/DL (0.60-1.30) 1.89 MG/DL (0.60-1.30) Random Glucose 107 MG/DL (74-106) 122 MG/DL (74-106) 108 MG/DL (74-106) Calcium Level 8.0 MG/DL (8.5-10.1) 8.3 MG/DL (8.5-10.1) 8.1 MG/DL (8.5-10.1) Estimat Glomerular Filtration Rate 16 ML/MIN (>89) 25 ML/MIN (>89) 35 ML/MIN (>89) Albumin 3.2 GM/DL (3.4-5.0) Neutrophils (%) (Auto) 71.6 % (16.0-70.0) Monocytes (%) (Auto) 12.2 % (0.0-8.0) Neutrophils # (Auto) 7.8 TH/MM3 (1.8-7.7) Monocytes # (Auto) 1.3 TH/MM3 (0-0.9) Imaging Last Impressions Abdomen/Pelvis CT 04/20/17 0000 Signed Impressions: Service Date/Time: Thursday, April 20, 2017 17:57 - CONCLUSION: 1. Berger catheter balloon appears to be within the prostatic urethra. 2. No calcified renal stones or evidence of hydronephrosis. 3. Small bilateral pleural effusions and subsegmental consolidation medial right lower lung. Jules Walls MD Chest X-Ray 04/18/17 0600 Signed Impressions: Service Date/Time: Tuesday, April 18, 2017 05:35 - CONCLUSION: Slightly worse bilateral consolidation. Left chest tube out. No pneumothorax. Jones Nicolas MD Renal Ultrasound 04/17/17 0000 Signed Impressions: Service Date/Time: April 09:59 - CONCLUSION: 1. Bilateral echogenic kidneys consistent with medical renal disease. 2. Asymmetrical atrophic appearing left kidney. 3. No evidence of obstructive uropathy. 4. 2.4 cm cyst in the mid right kidney. Christopher Dunn MD Lower Extremity Ultrasound 04/15/17 0000 Signed Impressions: Service Date/Time: Saturday, April 15, 2017 10:00 - CONCLUSION: Venous mapping as detailed above. Jules Carpio Jr., MD Carotid Artery Ultrasound 04/15/17 0000 Signed Impressions: Service Date/Time: Saturday, April 15, 2017 10:23 - CONCLUSION: 1. Mild scattered plaque. No hemodynamically significant stenosis involving either carotid artery. 2. Antegrade flow involving both vertebral arteries. Jules Carpio Jr., MD PE at Discharge GENERAL: A&O x 3 SKIN: Warm and dry. prevena dressing to chest , icision intact to leg HEAD: Normocephalic. EYES: No scleral icterus. No injection or drainage. NECK: Supple, trachea midline. No JVD or lymphadenopathy. CARDIOVASCULAR: irregular rate and rhythm without murmurs, gallops, or rubs. mild general edema RESPIRATORY: Breath sounds equal bilaterally. No accessory muscle use. GASTROINTESTINAL: Abdomen soft, non-tender, nondistended. MUSCULOSKELETAL: No cyanosis, or edema. BACK: Nontender without obvious deformity. No CVA tenderness. Hospital Course 04/16 still remains on 10L simple mask needs aggressive pulm toileting started on Bumex gtt with albumin / q6hr BMP s/p NA Bicarb , calcium for elevated K+ HX of afib / will need to resume xarelto when chest tubes out Creatinine 1.84/ consult Nephro repeat K+ 6/ d50/ insulin and additional NA bicarb given 04/17 K+ 5.6 Bumex gtt reduced 0.25mg/ hr non-oliguric / renal US noted Bilateral echogenic kidneys consistent with medical renal disease. Asymmetrical atrophic appearing left kidney. No evidence of obstructive uropathy. 2.4 cm cyst in the mid right kidney. wean 02 as tolerated 04/18 weaned to 4 liters, non-oliguric discussed with Dr Loyd / mindy Bumex gtt transfuse one unit PRBC leave berger cath in today / for strict I&O remains in afib rate controlled/ on xarelto 04/19 Doing well Awaiting transfer to [facility] Renal function improving. Appreciate Nephrology input Increase beta eugenia 04/20 C/o severe groin/bladder pain. Will order B&O suppository Hematuria worsening. CBC stable. Consult Urology. Hold Xeralto PT 04/21 creatinine improved ok to dc from nephrology standpoint appreciate Urology input, leave berger cath in place, resume xarelto resume Tikosyn at discharge remove prevena in am ok to dc to rehab Pt Condition on Discharge: Fair Discharge Disposition: Rehab Inpatient Discharge Instructions DIET: Follow Instructions for: Heart Healthy Diet, Diabetic Diet Activities you can perform: Full Weight Bearing, Shower Only-No Bath Activities to avoid: Strenuous Activity, Driving Additional Activity Instructio: no lifting > 10lbs or gallon of milk Follow up Referrals: Cardiology - 4 Weeks with Paul Yoder MD Nephrology - 2 Weeks with Paul Loyd MD PCP Follow-up - 2 Weeks with Leonardo Davis MD Surgical - 2 Weeks with Avelina Duran Urology - 1 Week with Segun Varma MD New Orders: BASIC METABOLIC PROF - 2 Weeks CBC NO DIFF - 2 Weeks X-RAY CHEST PA & LAT - 2 Weeks New Medications: Docusate Sodium (Dok) 100 Mg Cap 100 MG PO BID for Constipation, #60 CAP 0 Refills Metoprolol Tartrate (Metoprolol Tartrate) 25 Mg Tab 50 MG PO Q12HR for Blood Pressure Management, #60 TAB Oxycodone HCl/Acetaminophen (Oxycodone-Acetaminophen 5-325) 5 Mg-325 Mg Tablet 1 TAB PO Q4H PRN for PAIN SCALE 1 TO 4, #40 TAB 0 Refills Continued Medications: Acetaminophen (Tylenol) 325 Mg Tab 650 MG PO Q6H, TAB 0 Refills Amlodipine (Amlodipine) 2.5 Mg Tab 2.5 MG PO DAILY for Blood Pressure Management, #30 TAB 0 Refills Ascorbic Acid ER (Vitamin C ER) 500 Mg Sohan 1000 MG PO for Nutritional Supplement, TAB [address] (Aspirin EC) 81 Mg Tabdr 81 MG PO DAILY, TAB 0 Refills Atorvastatin (Atorvastatin) 80 Mg Tab 80 MG PO HS for Cholesterol Management, #30 TAB 0 Refills Cholecalciferol (Vitamin D3) 2,000 Unit Cap 2000 UNITS PO DAILY for Nutritional Supplement, #1 BOTTLE 0 Refills Dofetilide (Tikosyn) 250 Mcg Cap 250 MCG PO BID for Regulate Heart Beat, #60 CAP 0 Refills For Creatinine Clearance 40-60 mL/min Doxazosin (Doxazosin) 8 Mg Tab 8 MG PO DAILY, #30 TAB 0 Refills Fish Oil-Cholecalciferol ([place]-3 Fish Oil/Vitamin) 1,000-1,000 Mg Cap 1 CAP PO DAILY for Nutritional Supplement, CAP 0 Refills Fluocinonide Topical (Fluocinonide Topical) 0.05% Soln 1 APPLIC TOPICAL DAILY, #60 ML 0 Refills Bpzc-I-Bpxjab-B6-B12-Zn (Chromagen Softgel) 75-60-1 Mg Capsule 1 CAP PO DAILY for Nutritional Supplement, CAP 0 Refills Multiple Vitamin (Multi-Vitamin Daily) 1 Tab Tab 1 TAB PO DAILY for Nutritional Supplement, TAB 0 Refills Rivaroxaban (Xarelto) 20 Mg Tab 20 MG PO DAILY for Blood Clot Prevention, TAB 0 Refills Discontinued Medications: Carvedilol (Carvedilol) 3.125 Mg Tab 3.125 MG PO BID, #60 TAB 0 Refills Furosemide (Furosemide) 40 Mg Tab 40 MG PO BID, #60 TAB 0 Refills Isosorbide Mononitrate (Isosorbide Mononitrate) 10 Mg Tab 10 MG PO DAILY for Prevent Chest Pain, #60 TAB Take 2 doses 7 hours apart. Lisinopril (Lisinopril) 40 Mg Tab 40 MG PO DAILY for Blood Pressure Management, #30 TAB 0 Refills Magnesium Citrate (Magnesium Citrate) 100 Mg Tab 200 MG PO BID PRN for CONSTIPATION, TAB 0 Refills Potassium Bicarbonate Effervescent (Klor-Con EF) 25 Meq Tab 100 MEQ PO DAILY for Electrolyte Replacement, #60 TAB 0 Refills Spironolactone (Spironolactone) 25 Mg Tab 25 MG PO DAILY, #30 TAB 0 Refills Avelina Duran Apr 21, 2017 17:21
[2017-04-21] MEDS: SENNOSIDES 8.6 MG TAB PO SCH (20:29)
[2017-04-21] MEDS: ATORVASTATIN 80 MG TAB PO SCH (20:30)
[2017-04-22] VITALS (29 sets, daily range): BP systolic 123–187; BP diastolic 64–78; PULSE 63–85; RESP 18–20; TEMP 97.4–98.6; O2SAT 93–97
[2017-04-22] MEDS: oxyCODONE/ACETAMINOPHEN 5 MG/325 MG TAB PO PRN ×4 (03:21→22:23)
[2017-04-22] MEDS: BELLADONNA ALKALOIDS/OPIUM 60 MG SUPP RECTAL SCH ×2 (06:00→12:00)
[2017-04-22] MEDS: PANTOPRAZOLE SOD 40 MG DELAYED RELEASE TAB PO SCH (06:10)
[2017-04-22] MEDS: INSULIN ASPART SUPPLEMENTAL SCALE SQ SCH ×4 (08:00→21:00)
[2017-04-22] MEDS: POLYETHYLENE GLYCOL 17 GM PKG PO SCH (08:55)
[2017-04-22] MEDS: ASPIRIN 81 MG CHEW TAB PO SCH (08:56)
[2017-04-22] MEDS: METOPROLOL TARTRATE 25 MG TAB PO SCH ×2 (08:56→22:23)
[2017-04-22] MEDS: DOCUSATE SODIUM 100 MG CAP PO SCH ×2 (08:56→22:23)
[2017-04-22] MEDS: AMIODARONE 200 MG TAB PO SCH ×2 (08:56→22:22)
[2017-04-22] MEDS: SODIUM CHLORIDE 0.9% FLUSH 10 ML FLUSH IV FLUSH SCH ×2 (08:57→22:22)
[2017-04-22] MEDS: MULTIVITAMINS/MINERALS THERAPEUTIC TAB PO SCH (08:57)
[2017-04-22] MEDS: FERROUS SULFATE 325 MG (65 MG ELEMENTAL IRON) TAB PO SCH ×2 (12:34→17:21)
[2017-04-22] MEDS ORDERED: BELLADONNA ALKALOIDS/OPIUM 60 MG SUPP RECTAL PRN (14:15)
--- NOTE | 2017-04-22 14:24 | PD.CAR.PN ---
CVT Progress Note Subjective/Hospital Course: 81/ m with history of chest tightness off and on for the last couple of months with exertion, history of coronary artery disease with prior stent, also prior IA, presented for further evaluation and outpatient cardiac cath by Dr. Yoder. The patient was found to have an ejection fraction of 60% left main disease, distal 90% proximally, the ostial 80%, mid-distal LAD 70, the circ was 80%. We were consulted to evaluate for coronary artery bypass grafting to the LAD and the OM. Pt was taken immediately to OR 04/15 PAST MEDICAL HISTORY: Coronary artery disease, Paroxysmal atrial fibrillation ( xarelto) , Hyperlipidemia, Hypertension, Intraventricular conduction defect , Trace mitral regurgitation, Trace aortic insufficiency, Trace tricuspid insufficiency, Morbid obesity with BMI of 56, Benign prostatic hypertrophy, Chronic anemia, Sleep apnea, History of sinus bradycardia, ablation for the atrial flutter. surgery: 04/15 Emergent CABG x 2, BULLOCK to LAD - good, SVG to OM- good, EVH (R) sternal plating crystalloid 2500cc, EBL 1500cc, cell saver 750cc Pump time 45min extubated after surgery 04/16 still remains on 10L simple mask needs aggressive pulm toileting started on Bumex gtt with albumin / q6hr BMP s/p NA Bicarb , calcium for elevated K+ HX of afib / will need to resume xarelto when chest tubes out Creatinine 1.84/ consult Nephro repeat K+ 6/ d50/ insulin and additional NA bicarb given 04/17 K+ 5.6 Bumex gtt reduced 0.25mg/ hr non-oliguric / renal US noted Bilateral echogenic kidneys consistent with medical renal disease. Asymmetrical atrophic appearing left kidney. No evidence of obstructive uropathy. 2.4 cm cyst in the mid right kidney. wean 02 as tolerated 04/18 weaned to 4 liters, non-oliguric discussed with Dr Loyd / mindy Bumex gtt transfuse one unit PRBC leave berger cath in today / for strict I&O remains in afib rate controlled/ on xarelto 04/19 Doing well Awaiting transfer to [facility] Renal function improving. Appreciate Nephrology input Increase beta eugenia 04/20 C/o severe groin/bladder pain. Will order B&O suppository Hematuria worsening. CBC stable. Consult Urology. Hold Xeralto PT 04/21 discharge summary completed 04/22 waiting on rehab bed berger cath in place ambulating better Objective: GENERAL: A&O x 3 SKIN: Warm and dry. incision intact and well approximated, incision right leg intact and well approximated HEAD: Normocephalic. EYES: No scleral icterus. No injection or drainage. NECK: Supple, trachea midline. No JVD or lymphadenopathy. CARDIOVASCULAR: Regular rate and rhythm without murmurs, gallops, or rubs. RESPIRATORY: Breath sounds equal bilaterally. No accessory muscle use. GASTROINTESTINAL: Abdomen soft, non-tender, nondistended. MUSCULOSKELETAL: No cyanosis, or edema. BACK: Nontender without obvious deformity. No CVA tenderness. Vital Signs Date Time Temp Pulse Resp B/P (MAP) Pulse Ox O2 Delivery O2 Flow Rate FiO2 04/22/17 14:10 68 04/22/17 13:02 83 04/22/17 12:05 98.1 77 19 123/74 (90) 93 04/22/17 12:00 72 04/22/17 11:00 70 04/22/17 10:54 94 21 04/22/17 10:05 85 04/22/17 09:00 78 04/22/17 08:00 74 04/22/17 07:32 98.6 79 19 187/78 (114) 94 04/22/17 07:00 76 04/22/17 06:00 82 04/22/17 05:00 70 04/22/17 04:19 18 04/22/17 04:00 80 04/22/17 03:03 75 04/22/17 03:00 98.2 79 20 175/64 (101) 94 04/22/17 02:00 76 04/22/17 01:00 69 04/22/17 00:02 71 04/21/17 23:00 76 04/21/17 23:00 98.2 84 20 165/67 (99) 94 04/21/17 22:00 78 04/21/17 21:00 80 04/21/17 20:00 81 04/21/17 19:00 77 04/21/17 19:00 98.7 77 20 155/70 (98) 95 04/21/17 19:00 95 Room Air 04/21/17 18:32 76 04/21/17 17:00 78 04/21/17 16:00 74 04/21/17 15:00 95 Room Air 04/21/17 15:00 76 04/21/17 15:00 98.6 77 19 149/67 (94) 94 Result Diagram: 04/20/17 0736 04/21/17 0452 (1) Morbid obesity (2) Chronic kidney disease Plan: indices improved (3) Hyperkalemia Plan: improved (4) Unstable angina (5) CAD (coronary artery disease) (6) S/P CABG (coronary artery bypass graft) Plan: on ASA, , statin , aggressive PT/OT (7) Respiratory insufficiency Plan: aggressive pulm toileting nebs ezpap acapella (8) Afib Plan: tikosyn restarted amiodarone stopped Problem Qualifiers (1) Chronic kidney disease: Qualified Codes: N18.3 - Chronic kidney disease, stage 3 (moderate) Avelina Duran Apr 22, 2017 14:24
[2017-04-22] MEDS: SODIUM CHLOR 0.45% 1000 ML INJ 1,000 ML IV SCH (14:53)
[2017-04-22] MEDS: ATORVASTATIN 80 MG TAB PO SCH (22:22)
[2017-04-22] MEDS: SENNOSIDES 8.6 MG TAB PO SCH (22:22)
[2017-04-23] VITALS (18 sets, daily range): BP systolic 138–179; BP diastolic 63–74; PULSE 68–85; RESP 18–19; TEMP 98–98.9; O2SAT 93–96
[2017-04-23] MEDS: oxyCODONE/ACETAMINOPHEN 5 MG/325 MG TAB PO PRN (03:32)
[2017-04-23 05:09] LABS: HEMATOCRIT 29.5 % (39.0-51.0); HEMOGLOBIN 9.9 GM/DL (13.0-17.0); MEAN CELL VOLUME 95.2 FL (80.0-100.0); MEAN CORPUSCULAR HGB CONC 33.6 % (32.0-36.0); MEAN PLATELET VOLUME 7.6 FL (7.0-11.0); PLATELET COUNT 256 TH/MM3 (150-450); RED BLOOD COUNT 3.09 MIL/MM3 (4.50-5.90); RED CELL DISTRIBUTION WIDTH 13.3 % (11.6-17.2); WHITE BLOOD COUNT 11.4 TH/MM3 (4.0-11.0)
[2017-04-23 05:18] LABS: ALBUMIN 2.7 GM/DL (3.4-5.0); BICARBONATE 29.7 MEQ/L (21.0-32.0); CALCIUM 8.1 MG/DL (8.5-10.1); CREATININE 1.44 MG/DL (0.60-1.30); PHOSPHORUS 2.7 MG/DL (2.5-4.9)
[2017-04-23] MEDS: PANTOPRAZOLE SOD 40 MG DELAYED RELEASE TAB PO SCH (05:47)
[2017-04-23] MEDS: INSULIN ASPART SUPPLEMENTAL SCALE SQ SCH ×2 (07:54→12:00)
[2017-04-23] MEDS: AMIODARONE 200 MG TAB PO SCH (08:06)
[2017-04-23] MEDS: DOCUSATE SODIUM 100 MG CAP PO SCH (08:06)
[2017-04-23] MEDS: ASPIRIN 81 MG CHEW TAB PO SCH (08:06)
[2017-04-23] MEDS: SODIUM CHLORIDE 0.9% FLUSH 10 ML FLUSH IV FLUSH SCH (08:06)
[2017-04-23] MEDS: MULTIVITAMINS/MINERALS THERAPEUTIC TAB PO SCH (08:06)
[2017-04-23] MEDS: METOPROLOL TARTRATE 25 MG TAB PO SCH (08:06)
[2017-04-23] MEDS: POLYETHYLENE GLYCOL 17 GM PKG PO SCH (08:06)
[2017-04-23] MEDS: FERROUS SULFATE 325 MG (65 MG ELEMENTAL IRON) TAB PO SCH (12:13)
--- NOTE | 2017-04-23 14:27 | PD.CAR.PN ---
CVT Progress Note Subjective/Hospital Course: 81/ m with history of chest tightness off and on for the last couple of months with exertion, history of coronary artery disease with prior stent, also prior SD, presented for further evaluation and outpatient cardiac cath by Dr. Yoder. The patient was found to have an ejection fraction of 60% left main disease, distal 90% proximally, the ostial 80%, mid-distal LAD 70, the circ was 80%. We were consulted to evaluate for coronary artery bypass grafting to the LAD and the OM. Pt was taken immediately to OR 04/15 PAST MEDICAL HISTORY: Coronary artery disease, Paroxysmal atrial fibrillation ( xarelto) , Hyperlipidemia, Hypertension, Intraventricular conduction defect , Trace mitral regurgitation, Trace aortic insufficiency, Trace tricuspid insufficiency, Morbid obesity with BMI of 56, Benign prostatic hypertrophy, Chronic anemia, Sleep apnea, History of sinus bradycardia, ablation for the atrial flutter. surgery: 04/15 Emergent CABG x 2, BULLOCK to LAD - good, SVG to OM- good, EVH (R) sternal plating crystalloid 2500cc, EBL 1500cc, cell saver 750cc Pump time 45min extubated after surgery 04/16 still remains on 10L simple mask needs aggressive pulm toileting started on Bumex gtt with albumin / q6hr BMP s/p NA Bicarb , calcium for elevated K+ HX of afib / will need to resume xarelto when chest tubes out Creatinine 1.84/ consult Nephro repeat K+ 6/ d50/ insulin and additional NA bicarb given 04/17 K+ 5.6 Bumex gtt reduced 0.25mg/ hr non-oliguric / renal US noted Bilateral echogenic kidneys consistent with medical renal disease. Asymmetrical atrophic appearing left kidney. No evidence of obstructive uropathy. 2.4 cm cyst in the mid right kidney. wean 02 as tolerated 04/18 weaned to 4 liters, non-oliguric discussed with Dr Loyd / mindy Bumex gtt transfuse one unit PRBC leave berger cath in today / for strict I&O remains in afib rate controlled/ on xarelto 04/19 Doing well Awaiting transfer to [facility] Renal function improving. Appreciate Nephrology input Increase beta eugenia 04/20 C/o severe groin/bladder pain. Will order B&O suppository Hematuria worsening. CBC stable. Consult Urology. Hold Xeralto PT 04/21 discharge summary completed 04/22 waiting on rehab bed berger cath in place ambulating better 04/23 rehab bed obtained / dc today / discharge summary amended Objective: GENERAL: A&O x 3 SKIN: Warm and dry. incision intact to chest and evh composite layup worker: Normocephalic. EYES: No scleral icterus. No injection or drainage. NECK: Supple, trachea midline. No JVD or lymphadenopathy. CARDIOVASCULAR: Regular rate and rhythm without murmurs, gallops, or rubs. RESPIRATORY: Breath sounds equal bilaterally. No accessory muscle use. GASTROINTESTINAL: Abdomen soft, non-tender, nondistended. MUSCULOSKELETAL: No cyanosis, or edema. BACK: Nontender without obvious deformity. No CVA tenderness. Vital Signs Date Time Temp Pulse Resp B/P (MAP) Pulse Ox O2 Delivery O2 Flow Rate FiO2 04/23/17 12:06 179/74 (109) 04/23/17 12:01 98.0 85 19 94 04/23/17 12:00 78 04/23/17 11:00 69 04/23/17 10:00 78 04/23/17 09:00 82 04/23/17 08:12 96 21 04/23/17 08:00 76 04/23/17 07:10 98.4 77 19 172/72 (105) 96 04/23/17 07:00 83 04/23/17 06:00 77 04/23/17 05:00 72 04/23/17 04:35 18 04/23/17 04:00 71 04/23/17 04:00 98.4 72 18 160/67 (98) 94 04/23/17 03:00 83 04/23/17 02:00 72 04/23/17 01:00 80 04/23/17 00:00 68 04/23/17 00:00 98.9 73 18 146/63 (90) 93 04/22/17 23:00 68 04/22/17 22:00 76 04/22/17 21:00 74 04/22/17 20:00 72 04/22/17 19:00 76 04/22/17 19:00 97.4 77 18 171/73 (105) 97 04/22/17 18:00 72 04/22/17 17:00 70 04/22/17 16:00 70 04/22/17 15:03 98.0 72 19 146/69 (94) 94 04/22/17 15:00 63 Labs: Laboratory Tests Test 04/23/17 03:44 White Blood Count 11.4 TH/MM3 (4.0-11.0) Red Blood Count 3.09 MIL/MM3 (4.50-5.90) Hemoglobin 9.9 GM/DL (13.0-17.0) Hematocrit 29.5 % (39.0-51.0) Mean Corpuscular Volume 95.2 FL (80.0-100.0) Mean Corpuscular Hemoglobin 32.0 PG (27.0-34.0) Mean Corpuscular Hemoglobin Concent 33.6 % (32.0-36.0) Red Cell Distribution Width 13.3 % (11.6-17.2) Platelet Count 256 TH/MM3 (150-450) Mean Platelet Volume 7.6 FL (7.0-11.0) Blood Urea Nitrogen 54 MG/DL (7-18) Creatinine 1.44 MG/DL (0.60-1.30) Random Glucose 100 MG/DL (74-106) Albumin 2.7 GM/DL (3.4-5.0) Calcium Level 8.1 MG/DL (8.5-10.1) Phosphorus Level 2.7 MG/DL (2.5-4.9) Sodium Level 144 MEQ/L (136-145) Potassium Level 4.7 MEQ/L (3.5-5.1) Chloride Level 107 MEQ/L (98-107) Carbon Dioxide Level 29.7 MEQ/L (21.0-32.0) Anion Gap 7 MEQ/L (5-15) Estimat Glomerular Filtration Rate 47 ML/MIN (>89) Result Diagram: 04/23/17 0344 04/23/17 0344 (1) Morbid obesity (2) Chronic kidney disease Plan: indices improved (3) Hyperkalemia Plan: improved (4) Unstable angina (5) CAD (coronary artery disease) (6) S/P CABG (coronary artery bypass graft) Plan: on ASA, , statin , aggressive PT/OT for dc to rehab today (7) Respiratory insufficiency Plan: aggressive pulm toileting nebs ezpap acapella (8) Afib Plan: tikosyn restarted amiodarone stopped Problem Qualifiers (1) Chronic kidney disease: Qualified Codes: N18.3 - Chronic kidney disease, stage 3 (moderate) Avelina Duran Apr 23, 2017 14:27
== END 2017-04-23 15:00 | DRG 234 ==
LOC: HDOC 05:36 → HDIC 05:37 → HCVI 08:26 → HDOC 12:09 → HCPC 04-19 15:20
PROVIDERS: ADMIT Internal Medicine Cardiovascular Disease; ATTEND Internal Medicine Cardiovascular Disease
PROC: 021009W Bypass Coronary Artery, One Artery from Aorta with Autologous Venous Tissue, Open Approach (ICD-10-PCS; 2017-04-15)
PROC: 06BP4ZZ Excision of Right Saphenous Vein, Percutaneous Endoscopic Approach (ICD-10-PCS; 2017-04-15)
PROC: 5A1221Z Performance of Cardiac Output, Continuous (ICD-10-PCS; 2017-04-15)
PROC: B2111ZZ Fluoroscopy of Multiple Coronary Arteries using Low Osmolar Contrast (ICD-10-PCS; 2017-04-15)
PROC: B2151ZZ Fluoroscopy of Left Heart using Low Osmolar Contrast (ICD-10-PCS; 2017-04-15)
PROC: 02100Z9 Bypass Coronary Artery, One Artery from Left Internal Mammary, Open Approach (ICD-10-PCS; principal; 2017-04-15 07:30)
PROC: 4A023N7 Measurement of Cardiac Sampling and Pressure, Left Heart, Percutaneous Approach (ICD-10-PCS; 2017-04-15 12:55)
PROC: 30233N1 Transfusion of Nonautologous Red Blood Cells into Peripheral Vein, Percutaneous Approach (ICD-10-PCS; 2017-04-18)
DX: I25.110 Atherosclerotic heart disease of native coronary artery with unstable angina pectoris (principal); N17.9 Acute kidney failure, unspecified; Z68.43 Body mass index [BMI] 50.0-59.9, adult; R06.89 Other abnormalities of breathing; E87.5 Hyperkalemia; I48.0 Paroxysmal atrial fibrillation; E66.01 Morbid (severe) obesity due to excess calories; I08.3 Combined rheumatic disorders of mitral, aortic and tricuspid valves; N18.3 Chronic kidney disease, stage 3 (moderate); D64.9 Anemia, unspecified; I25.2 Old myocardial infarction; Z95.5 Presence of coronary angioplasty implant and graft; R35.1 Nocturia; R39.12 Poor urinary stream; N40.1 Benign prostatic hyperplasia with lower urinary tract symptoms; E78.5 Hyperlipidemia, unspecified; I12.9 Hypertensive chronic kidney disease with stage 1 through stage 4 chronic kidney disease, or unspecified chronic kidney disease; Z96.651 Presence of right artificial knee joint; Z87.891 Personal history of nicotine dependence; Z80.0 Family history of malignant neoplasm of digestive organs; Z83.3 Family history of diabetes mellitus; Z82.49 Family history of ischemic heart disease and other diseases of the circulatory system; I87.8 Other specified disorders of veins; G47.33 Obstructive sleep apnea (adult) (pediatric); N32.89 Other specified disorders of bladder; R31.9 Hematuria, unspecified; R33.9 Retention of urine, unspecified; E21.1 Secondary hyperparathyroidism, not elsewhere classified; E55.9 Vitamin D deficiency, unspecified; N28.1 Cyst of kidney, acquired
CPT/HCPCS: 36430; 71045; 74176; 76775; 76937; 80048; 80069; 80076; 81001; 82306; 82570; 82948; 83036; 83735; 83970; 84100; 84132; 84156; 85025; 85027; 85610; 85730; 86160; 86850; 86900; 86901; 86920; 87086; 87205; 87641; 93005; 93458; 93880; 93970; 93998; 94002; 94010; 94150; 94640; 94664; 94667; 94668; 99152; 99153; C1713; C1769; C1893; J0131; J0282; J0360; J0690; J1205; J1265; J1644; J1815; J1817; J1940; J2150; J2250; J2270; J2370; J2405; J2440; J2720; J2765; J2930; J3010; J3370; J3475; J3480; J7040; J7050; J7120; J7613; P9016; P9045; P9047; Q9967

== ENCOUNTER 2017-05-01 03:03 | Emergency (ER) | payer OTHER ==
[~2017-05-01] VITALS: Ht 167.6 cm; Wt 154.0 kg
[~2017-05-01 03:03] MED LIST changes: +AMLO2.5T PO; -AMLO5TAB22 PO; +ASPI81TA23 PO; -ATOR80TA PO; +ATOR80TA45 PO; -CARD8TAB6 PO; -CARV6.252 PO; -CHOL1CAP6 PO; -CLIN1CAP6 PO; +DOCU1CAP39 PO; +DOXA1TAB43 PO; -FISHCAP PO; +FLUO.05%ST TOPICAL; -FURO10S PO; -IMDU30TA PO; +IRON1CAP4 PO; -IRON28TA PO; -LISI-363 PO; +METO25TA3 PO; +OMEGCAP PO; +OXYC1TAB63 PO; -PERC5TAB12 PO; -POTA99TA12 PO; -RIVA20 PO; -ST JTAB PO; +TYLE325T PO; +VITA2000 PO; +VITA500T83 PO; +XARE20TA PO
[2017-05-01 03:10] VITALS: BP 194/78; PULSE 64; RESP 18; TEMP 98.7; O2SAT 98
[2017-05-01] MEDS ORDERED: SODIUM CHLORIDE 0.9% FLUSH 10 ML FLUSH IVF PRN (03:15)
[2017-05-01] MEDS ORDERED: MORPHINE SULFATE 4 MG/ML INJ IV PUSH ONE (03:15)
[2017-05-01 03:28] VITALS: RESP 18; O2SAT 98
[2017-05-01 03:42] LABS: AUTOMATED NEUTROPHIL # 6.6 TH/MM3 (1.8-7.7); BASOPHIL # 0.1 TH/MM3 (0-0.2); BASOPHIL % 0.7 % (0.0-2.0); EOSINOPHIL # 0.3 TH/MM3 (0-0.4); EOSINOPHIL % 3.2 % (0.0-4.0); HEMATOCRIT 28.1 % (39.0-51.0); HEMOGLOBIN 9.6 GM/DL (13.0-17.0); LYMPH % 16.5 % (9.0-44.0); LYMPHOCYTE # 1.5 TH/MM3 (1.0-4.8); MEAN CELL VOLUME 94.9 FL (80.0-100.0); MEAN CORPUSCULAR HEMOGLOBIN 32.4 PG (27.0-34.0); MEAN CORPUSCULAR HGB CONC 34.1 % (32.0-36.0); MEAN PLATELET VOLUME 7.6 FL (7.0-11.0); MONO % 9.2 % (0.0-8.0); MONOCYTE # 0.9 TH/MM3 (0-0.9); NEUT % 70.4 % (16.0-70.0); PLATELET COUNT 313 TH/MM3 (150-450); RED BLOOD COUNT 2.96 MIL/MM3 (4.50-5.90); RED CELL DISTRIBUTION WIDTH 13.4 % (11.6-17.2); WHITE BLOOD COUNT 9.3 TH/MM3 (4.0-11.0)
[2017-05-01 03:56] LABS: BICARBONATE 27.7 MEQ/L (21.0-32.0); BLOOD UREA NITROGEN 29 MG/DL (7-18); CALCIUM 8.7 MG/DL (8.5-10.1); CHLORIDE 109 MEQ/L (98-107); CREATININE 1.15 MG/DL (0.60-1.30); GLOMERULAR FILTRATION RATE 61 ML/MIN (>89); GLUCOSE,RANDOM 102 MG/DL (74-106); MAGNESIUM 1.6 MG/DL (1.5-2.5); SODIUM (NA) 143 MEQ/L (136-145)
--- NOTE | 2017-05-01 03:59 | PD ---
HPI . Shoulder discomfort Chief Complaint: Chest Pain Time Seen by Provider: 03:13 Travel History International Travel<30 days: No Contact w/Intl Traveler<30days: No Traveled to known affect area: No History of Present Illness HPI This patient is about 2 weeks status post a two-vessel CABG. He is currently in a retirement for rehab. He has had problems with his bed at the retirement. He states that he got a new bed today but, when he went to go to [facility], the bed did not function properly. A site safety representative from [facility] had to come to the retirement. A new bed was obtained from another facility. After they finally got him settled into the bed, he developed some tightness in his left shoulder. He was subsequently sent to us for further evaluation. He states that he is feeling much better now. I asked him what we have done to make him feel better and he states that we "listened." In addition to the shoulder discomfort, he is complaining with bilateral lower extremity edema. He has a sore area on the dorsum of the left foot. He states that it started out as a hard, small nodule. It has now flattened and spread. It is very sore. It is associated with bruising of the toes of his left foot. He believes that this is secondary to attempts at ambulation in the retirement. PFSH Past Medical History Atrial Fibrillation: Yes Cancer: No Cardiac Catheterization: Yes Cardiovascular Problems: Yes (NM,hyperlipid) High Cholesterol: Yes Chest Pain: No Congestive Heart Failure: Yes Coronary Artery Disease: Yes Diminished Hearing: No Gastrointestinal Disorders: No Glaucoma: No Hepatitis: No Hiatal Hernia: No Hypertension: Yes Respiratory: Yes (sleep apnea) Immunizations Current: Yes Myocardial Infarction: Yes Thyroid Disease: No Past Surgical History Cardiac Surgery: Yes (ABLATION X2) Coronary Artery Bypass Graft: Yes Coronary Stent: Yes (X1) Social History Alcohol Use: Yes (OCC) Tobacco Use: No Substance Use: No Allergies-Medications (Allergen,Severity, Reaction): Coded Allergies: crab (Unverified Allergy, Intermediate, DIARRHEA AND RASH, 05/01/17) bee venom protein (honey bee) (Verified Allergy, Unknown, 05/01/17) spinach (Verified Allergy, Unknown, 05/01/17) Uncoded Allergies: SHELLFISH (Allergy, Unknown, 3/6/18) Reported Meds & Prescriptions Reported Meds & Active Scripts Active Dok (Docusate Sodium) 100 Mg Cap 100 Mg PO BID Oxycodone-Acetaminophen 5-325 (Oxycodone HCl/Acetaminophen) 5 Mg-325 Mg Tablet 1 Tab PO Q4H PRN Metoprolol Tartrate 25 Mg Tab 50 Mg PO Q12HR Reported Xarelto (Rivaroxaban) 20 Mg Tab 20 Mg PO DAILY Vitamin D3 (Cholecalciferol) 2,000 Unit Cap 2,000 Units PO DAILY Vitamin C ER (Ascorbic Acid) 500 Mg Sohan 1,000 Mg PO Tylenol (Acetaminophen) 325 Mg Tab 650 Mg PO Q6H Tikosyn (Dofetilide) 250 Mcg Cap 250 Mcg PO BID For Creatinine Clearance 40-60 mL/min Multi-Vitamin Daily (Multiple Vitamin) 1 Tab Tab 1 Tab PO DAILY Chromagen Softgel (Wqzm-B-[id number]-[id number]-Zn) 75-60-1 Mg Capsule 1 Cap PO DAILY Fluocinonide Topical (Fluocinonide) 0.05% Soln 1 Applic TOPICAL DAILY [place]-3 Fish Oil/Vitamin (Fish Oil-Cholecalciferol) 1,000-1,000 Mg Cap 1 Cap PO DAILY Doxazosin (Doxazosin Mesylate) 8 Mg Tab 8 Mg PO DAILY Atorvastatin (Atorvastatin Calcium) 80 Mg Tab 80 Mg PO HS Aspirin EC (Aspirin) 81 Mg Tabdr 81 Mg PO DAILY Amlodipine (Amlodipine Besylate) 2.5 Mg Tab 2.5 Mg PO DAILY Review of Systems Except as stated in HPI: all other systems reviewed are Neg Musculoskeletal: Positive: Arthralgias (Osteoarthritis of the left hip) Physical Exam Narrative GENERAL: Awake and alert. No acute distress. Markedly obese. SKIN: warm/dry. He does have bruising of the toes of the left foot. He has an area of erythema and tenderness on the dorsal aspect of the left foot. HEAD: Normocephalic. Atraumatic. EYES: Pupils equal and round. No scleral icterus. No injection or drainage. ENT: No nasal bleeding or discharge. Mucous membranes pink and moist. NECK: Trachea midline. Full range of motion without pain.. CARDIOVASCULAR: Regular rate and rhythm. RESPIRATORY: No accessory muscle use. Clear to auscultation. Breath sounds equal bilaterally. MUSCULOSKELETAL: No obvious deformities. Legs are swollen. However, he is obese so it is difficult to tell how much of the swelling is simply obesity. NEUROLOGICAL: Awake and alert. No obvious cranial nerve deficits. Motor grossly within normal limits. Normal speech. PSYCHIATRIC: Appropriate mood and affect; insight and judgment normal. Data Data Last Documented VS Vital Signs Date Time Temp Pulse Resp B/P (MAP) Pulse Ox O2 Delivery O2 Flow Rate FiO2 05/01/17 06:14 66 18 164/72 (102) 98 Room Air 05/01/17 03:10 98.7 Orders Orders Electrocardiogram (05/01/17 03:13) Basic Metabolic Panel (Bmp) (05/01/17 03:13) Complete Blood Count With Diff (05/01/17 03:13) D-Dimer (05/01/17 03:13) Magnesium (Mg) (05/01/17 03:13) Prothrombin Time / Inr (Pt) (05/01/17 03:13) Act Partial Throm Time (Ptt) (05/01/17 03:13) Troponin I (05/01/17 03:13) Ecg Monitoring (05/01/17 03:13) Iv Access Insert/Monitor (05/01/17 03:13) Oximetry (05/01/17 03:13) Morphine Inj (Morphine Inj) (05/01/17 03:15) Sodium Chloride 0.9% Flush (Ns Flush) (05/01/17 03:15) Chest, Pa & Lat (05/01/17 03:13) Ct Pulmonary Angiogram (05/01/17 04:27) Us Leg Venous Doppler Bilat (05/01/17 04:27) Labs Laboratory Tests Test 05/01/17 03:23 White Blood Count 9.3 TH/MM3 Red Blood Count 2.96 MIL/MM3 Hemoglobin 9.6 GM/DL Hematocrit 28.1 % Mean Corpuscular Volume 94.9 FL Mean Corpuscular Hemoglobin 32.4 PG Mean Corpuscular Hemoglobin Concent 34.1 % Red Cell Distribution Width 13.4 % Platelet Count 313 TH/MM3 Mean Platelet Volume 7.6 FL Neutrophils (%) (Auto) 70.4 % Lymphocytes (%) (Auto) 16.5 % Monocytes (%) (Auto) 9.2 % Eosinophils (%) (Auto) 3.2 % Basophils (%) (Auto) 0.7 % Neutrophils # (Auto) 6.6 TH/MM3 Lymphocytes # (Auto) 1.5 TH/MM3 Monocytes # (Auto) 0.9 TH/MM3 Eosinophils # (Auto) 0.3 TH/MM3 Basophils # (Auto) 0.1 TH/MM3 CBC Comment DIFF FINAL Differential Comment Prothrombin Time 14.4 SEC Prothromb Time International Ratio 1.4 RATIO Activated Partial Thromboplast Time 52.1 SEC D-Dimer Quantitative (PE/DVT) 5.73 MG/L FEU Blood Urea Nitrogen 29 MG/DL Creatinine 1.15 MG/DL Random Glucose 102 MG/DL Calcium Level 8.7 MG/DL Magnesium Level 1.6 MG/DL Sodium Level 143 MEQ/L Potassium Level 4.4 MEQ/L Chloride Level 109 MEQ/L Carbon Dioxide Level 27.7 MEQ/L Anion Gap 6 MEQ/L Estimat Glomerular Filtration Rate 61 ML/MIN Troponin I LESS THAN 0.02 NG/ML MDM Medical Decision Making Medical Screen Exam Complete: Yes Emergency Medical Condition: Yes Medical Record Reviewed: Yes (The patient was admitted here on 04/14 for chest pain. He was found to have two-vessel disease and was taken for CABG. His postoperative course was complicated by atrial fibrillation and acute kidney injury.) Interpretation(s) EKG shows a sinus rhythm. It looks like he has an intraventricular conduction delay. His EKG is unchanged from previous. Differential Diagnosis Differential diagnosis of chest pain includes but is not limited to musculoskeletal pain, pulmonary embolism, acute coronary syndrome, pneumonia, pleurisy Narrative Course This patient presents for the evaluation of left shoulder tightness. He is about 2 weeks status post a CABG. He states that he was very frustrated at the retirement tonight because of issues with his bed. The likelihood of ACS 2 weeks after CABG is very unlikely. However, PE, pneumothorax and pneumonia must be considered. CBC & BMP Diagram 05/01/17 03:23 Calcium Level 8.7, Magnesium Level 1.6 Trop < 0.02 D-dimer 5.73. CT for PE and BLE US will be done. There is being turned over to the oncoming provider at [address] and ultrasounds. Diagnosis Primary Impression: Chest pain Qualified Codes: R07.9 - Chest pain, unspecified Condition: Stable Kendal Izquierdo MD May 01, 2017 03:58
[2017-05-01 04:00] LABS: TROPONIN I LESS THAN 0.02 NG/ML (0.02-0.05)
[2017-05-01 04:05] LABS: INTERNATIONAL NORMALIZED RATIO 1.4 RATIO; PROTHROMBIN TIME - PATIENT 14.4 SEC (9.8-11.6)
[2017-05-01 04:07] LABS: D-DIMER 5.73 MG/L FEU (0.00-0.50)
--- NOTE | 2017-05-01 04:21 | RADRPT ---
EXAM DATE/TIME: 05/01/2017 03:51 [facility] COMPARISON: CT ABDOMEN & PELVIS W/O CONTRAST, April 20, 2017, 17:57. No previous studies available for compariso n. INDICATIONS : Chest pain. MEDICAL HISTORY : Congestive heart failure. Hypertension A-fib SURGICAL HISTORY : Coronary artery stent. CABG. ENCOUNTER: Initial ACUITY: 1 day PAIN SCORE: 6/10 LOCATION: Bilateral chest FINDINGS: One patchy infiltrates left lower lung without focal consolidation. The right lung is clear. The he art is upper limits normal size. Evidence of prior median sternotomy. CONCLUSION: Mild patchy infiltrates in the left lower lung. Jules Walls MD on May 01, 2017 at 4:18 Board Certified Radiologist. This report was verified electronically.
[2017-05-01 06:14] VITALS: BP 164/72; PULSE 66; RESP 18; O2SAT 98
[2017-05-01] MEDS ORDERED: IOHEXOL 350 MG/ML 10 ML VIAL (for RAD DIAG) IVCONTRAST ONE (07:00)
--- NOTE | 2017-05-01 07:20 | RADRPT ---
EXAM DATE/TIME: 05/01/2017 06:45 [facility] COMPARISON: No previous studies available for comparison. INDICATIONS : Chest pain, recent open heart surgery. IV CONTRAST: 75 cc Omnipaque 350 (iohexol) IV RADIATION DOSE: 11.53 CTDIvol (mGy) MEDICAL HISTORY : Cardiovascular disease. Congestive heart failure. Hypertension. SURGICAL HISTORY : CABG Coronary artery stent. ENCOUNTER: Initial ACUITY: 1 day PAIN SCALE: 5/10 LOCATION: Bilateral chest TECHNIQUE: Volumetric scanning of the chest was performed using a pulmonary embolism protocol MIP images were re constructed. Using automated exposure control and adjustment of the mA and/or kV according to patien t size, radiation dose was kept as low as reasonably achievable to obtain optimal diagnostic quality images. DICOM format image data is available electronically for review and comparison. Follow-up recommendations for detected pulmonary nodules are based at a minimum on nodule size and pa tient risk factors according to Fleischner Society Guidelines. FINDINGS: PULMONARY ARTERIES: There is poor opacification of the pulmonary arteries. No PE is identified within the main, left and right pulmonary arteries, and lobar branches. More distal PE can not definitely be excluded. LUNGS: There is compressive atelectasis in the left lower lobe. No pneumothorax or airspace consolidation is present. PLEURAE: There is a small left pleural effusion. MEDIASTINUM: Heart and great vessels demonstrate no acute finding. There is severe coronary artery calcification a nd moderate atherosclerotic disease of the aorta. Coronary artery bypass grafts are visualized. There is minimal fluid versus edema around the left internal mammary graft. No lymphadenopathy is visualiz ed. MUSCULOSKELETAL: There are degenerative changes of the thoracic spine. Median sternotomy wires are present as well as a sternal plate and screws. MISCELLANEOUS: The visualized upper abdominal organs demonstrate no acute abnormality. There is bilateral gynecomast ia. CONCLUSION: 1. Less than optimal opacification of the pulmonary arteries. However, no PE is identified through th e lobar level branches. More distal PE cannot be confidently excluded based on this examination. 2. Small left pleural effusion with associated compressive atelectasis in the left lower lobe. 3. There is a minimal amount of edema/fluid surrounding the left internal mammary bypass graft. If th e patient is post recent surgery this likely represents a normal postoperative finding. 4. Bilateral gynecomastia. Jones Nazario MD on May 01, 2017 at 7:12 Board Certified Radiologist. This report was verified electronically.
[2017-05-01 07:52] VITALS: BP_SYST 168; BP_SYST 171; BP_DIAS 70; BP_DIAS 71; PULSE 67; RESP 18; O2SAT 97
[2017-05-01 08:37] VITALS: BP 166/86; PULSE 83; RESP 18; O2SAT 99
--- NOTE | 2017-05-01 08:58 | RADRPT ---
EXAM DATE/TIME: 05/01/2017 08:02 [facility] COMPARISON: No previous studies available for comparison. INDICATIONS : Bilateral leg swelling. Palpable lump on left foot. MEDICAL HISTORY : Myocardial infarction. Congestive heart failure. Cardiovascular disease. Hypercholesterolemia. Atria l Fibrillation. Hypertension. Sleep Apnea. SURGICAL HISTORY : CABG Cardiac Stents. ENCOUNTER: Subsequent ACUITY: 2 weeks PAIN SCORE: 3/10 LOCATION: Bilateral legs. TECHNIQUE: Venous ultrasound of the left and right leg was performed from the inguinal ligament to the proximal calf. Real-time, color Doppler and spectral tracing, compression and augmentation techniques were us ed. FINDINGS: RIGHT LEG: There is normal compressibility of the deep venous system from the inguinal region to the proximal ca lf. No echogenic clot is seen in the lumen of the common femoral, femoral, popliteal, and posterior tibial veins. There is a normal response of the venous system to proximal and distal augmentation an d respiration. LEFT LEG: There is normal compressibility of the deep venous system from the inguinal region to the proximal ca lf. No echogenic clot is seen in the lumen of the common femoral, femoral, popliteal, and posterior tibial veins. There is a normal response of the venous system to proximal and distal augmentation an d respiration. Scanning over the dorsum of the left foot at the site of a palpable lump reveals an ob long slightly greater than 3 cm mostly anechoic collection in this region. Differential consideration s would include hematoma, seroma, abscess. CONCLUSION: No evidence of lower extremity DVT Jones Keenan MD on May 01, 2017 at 8:53 Board Certified Radiologist. This report was verified electronically.
--- NOTE | 2017-05-01 09:59 | PD ---
Physical Exam Narrative Patient signed out to me by Dr. Izquierdo. Please see her documentation for complete details. Briefly, patient is an 82 year old male s/p CABG who comes in from his rehab do to pressure in his left shoulder. He says there was an issue with his bed and having to change out his bed and the pain started after that. Exam shows edema of the left leg. Data Data Last Documented VS Vital Signs Date Time Temp Pulse Resp B/P (MAP) Pulse Ox O2 Delivery O2 Flow Rate FiO2 05/01/17 08:37 83 18 166/86 (112) 99 Room Air 05/01/17 03:10 98.7 Orders Orders Electrocardiogram (05/01/17 03:13) Basic Metabolic Panel (Bmp) (05/01/17 03:13) Complete Blood Count With Diff (05/01/17 03:13) D-Dimer (05/01/17 03:13) Magnesium (Mg) (05/01/17 03:13) Prothrombin Time / Inr (Pt) (05/01/17 03:13) Act Partial Throm Time (Ptt) (05/01/17 03:13) Troponin I (05/01/17 03:13) Ecg Monitoring (05/01/17 03:13) Iv Access Insert/Monitor (05/01/17 03:13) Oximetry (05/01/17 03:13) Morphine Inj (Morphine Inj) (05/01/17 03:15) Sodium Chloride 0.9% Flush (Ns Flush) (05/01/17 03:15) Chest, Pa & Lat (05/01/17 03:13) Ct Pulmonary Angiogram (05/01/17 04:27) Us Leg Venous Doppler Bilat (05/01/17 04:27) Iohexol 350 Inj (Omnipaque 350 Inj) (05/01/17 07:00) Labs Laboratory Tests Test 05/01/17 03:23 White Blood Count 9.3 TH/MM3 Red Blood Count 2.96 MIL/MM3 Hemoglobin 9.6 GM/DL Hematocrit 28.1 % Mean Corpuscular Volume 94.9 FL Mean Corpuscular Hemoglobin 32.4 PG Mean Corpuscular Hemoglobin Concent 34.1 % Red Cell Distribution Width 13.4 % Platelet Count 313 TH/MM3 Mean Platelet Volume 7.6 FL Neutrophils (%) (Auto) 70.4 % Lymphocytes (%) (Auto) 16.5 % Monocytes (%) (Auto) 9.2 % Eosinophils (%) (Auto) 3.2 % Basophils (%) (Auto) 0.7 % Neutrophils # (Auto) 6.6 TH/MM3 Lymphocytes # (Auto) 1.5 TH/MM3 Monocytes # (Auto) 0.9 TH/MM3 Eosinophils # (Auto) 0.3 TH/MM3 Basophils # (Auto) 0.1 TH/MM3 CBC Comment DIFF FINAL Differential Comment Prothrombin Time 14.4 SEC Prothromb Time International Ratio 1.4 RATIO Activated Partial Thromboplast Time 52.1 SEC D-Dimer Quantitative (PE/DVT) 5.73 MG/L FEU Blood Urea Nitrogen 29 MG/DL Creatinine 1.15 MG/DL Random Glucose 102 MG/DL Calcium Level 8.7 MG/DL Magnesium Level 1.6 MG/DL Sodium Level 143 MEQ/L Potassium Level 4.4 MEQ/L Chloride Level 109 MEQ/L Carbon Dioxide Level 27.7 MEQ/L Anion Gap 6 MEQ/L Estimat Glomerular Filtration Rate 61 ML/MIN Troponin I LESS THAN 0.02 NG/ML [facility] Supervised Visit with MIKKI: No Narrative Course Labs show no acute abnormalities. CTA performed shows no evidence of PE, no acute abnormalities. US of the left leg shows no evidence of DVT. Last 24 hours Impressions Lower Extremity Ultrasound 05/01/17426 Signed Impressions: Service Date/Time: April 08:02 - CONCLUSION: No evidence of lower extremity DVT Jones Keenan MD CT Angiography 05/01/17426 Signed Impressions: Service Date/Time: April 06:45 - CONCLUSION: 1. Less than optimal opacification of the pulmonary arteries. However, no PE is identified through the lobar level branches. More distal PE cannot be confidently excluded based on this examination. 2. Small left pleural effusion with associated compressive atelectasis in the left lower lobe. 3. There is a minimal amount of edema/fluid surrounding the left internal mammary bypass graft. If the patient is post recent surgery this likely represents a normal postoperative finding. 4. Bilateral gynecomastia. Jones Nazario MD Chest X-Ray 05/01/17 [id number] Signed Impressions: Service Date/Time: April 03:51 - CONCLUSION: Mild patchy infiltrates in the left lower lung. Jules Walls MD I spoke with patient's police crime scene technician, Dr. Yoder, who agrees, this is unlikely an anginal pain and patient is safe for discharge. Patient to be discharged back to his rehab. Advised to follow up with his doctors. Advised to return to the ED as needed for any worsening symptoms. Diagnosis Primary Impression: Shoulder pain Qualified Codes: M25.512 - Pain in left shoulder Patient Instructions: General Instructions, Shoulder Pain (ED) Additional Instruction: Follow up with your doctors. Return to the ED as needed for any worsening symptoms. Disposition: 01 DISCHARGE HOME Condition: Stable Marilynn Brooks MD May 01, 2017 09:59
[2017-05-01 10:30] VITALS: BP 167/72
--- NOTE | 2017-05-01 14:10 | EKG ---
Date Performed: 05/01/2017 Time Performed: 03:15:10 PTAGE: 82 years EKG: Sinus rhythm Cannot rule out LATERAL MYOCARDIAL INFARCTION ABNORMAL ECG Compared to prior electrocardiogram, Sinu s rhythm has replaced atrial fibrillation. PREVIOUS TRACING : 04/17/2017 04.43 DOCTOR: Flo Nobles Interpretating Date/Time 05/01/2017 14:09:49
== END 2017-05-01 11:59 | disposition home or self-care (01) ==
LOC: NEPC 03:03
DX: M25.512 Pain in left shoulder (principal); R07.9 Chest pain, unspecified; R94.31 Abnormal electrocardiogram [ECG] [EKG]; M79.89 Other specified soft tissue disorders; I48.91 Unspecified atrial fibrillation; I25.10 Atherosclerotic heart disease of native coronary artery without angina pectoris; I10 Essential (primary) hypertension
CPT/HCPCS: 71046; 71275; 80048; 83735; 84484; 85025; 85379; 85610; 85730; 93005; 93970; 96374; 99285; J2270; Q9967